=== PATIENT | female | born 1940 | race Caucasian/White ===

== ENCOUNTER 2018-04-29 18:38 | Emergency (ER) | payer MEDICARE, BC, SELFPAY ==
[2018-04-29] VITALS (23 sets, daily range): BP systolic 126–133; BP diastolic 56–76; PULSE 63–95; RESP 13–31; O2SAT 90–97
--- NOTE | 2018-04-29 19:12 | ED.GENADUL ---
Disposition Clinical Impression: Bee sting allergy Disposition: STILL A PATIENT Condition: Stable Instructions: Insect Bite or Sting (ED) Additional Instructions: Take your regular medications as directed. Use her EpiPen as directed. Follow-up with your primary care doctor within the next week as needed. Return to the emergency department with any worsening or new concerning symptoms. Prescriptions: Epinephrine [Epipen 2-Jesus] 0.3 mg IJ DIRECTED PRN #1 auto.injct PRN Reason: Medical Decision Making - Medical Decision Making 77-year-old female with a history of severe reaction to bee stings who presents status post bee sting to right foot. She has a localized reaction noted to the right foot but no difficulty breathing, swallowing, or vomiting. Vitals within normal limits. She appears relaxed and in no acute distress. Airway intact. Lungs clear to auscultation. Patient took EpiPen and Benadryl prior to arrival. She is aware of 4-6 hour period of observation after epi. She states she came here as she has had rebound before after epi. Will place an IV, bolus IV fluids, Solu-Medrol, Pepcid. 2000: Case endorsed to Dr. Steele to follow-up after 4-6 hour observation. History of Present Illness - General Chief complaint: Allergic Stated complaint: ALLERGIC REACTION Time Seen by Provider: 04/29/18 19:10 Source: patient Mode of arrival: ambulatory Limitations: no limitations - History of Present Illness Initial comments: Patient is a 77-year-old female presents here with complaint of bee sting to right foot 1 hour ago. Patient has a history of severe reaction to bee stings with shortness of breath, facial swelling, rash and has an EpiPen. Patient states she used her EpiPen and took 2 tabs of Benadryl but came here for further evaluation and observation. She denies difficulty swallowing, vomiting, chest pain or shortness of breath. - Related Data Cholecalciferol (Vitamin D3) [Vitamin D3] 2 cap PO DAILY 01/26/13 Multivitamin [Daily Vitamin] 1 tab PO DAILY 01/26/13 [place]-3 Fatty Acids/Fish Oil [Fish Oil 1,000 Mg Softgel] 1 cap PO DAILY 01/26/13 Lactobacillus Acidophilus [Probiotic] 1 each PO DAILY 07/07/13 Calcium Carb/Magnesium Oxid/D3 [Calcium Magnesium + D Tablet] 1 tab PO BID 02/06/16 Nitroglycerin 0.4 mg SL Q5 HR PRN #25 04/01/16 Nystatin Powder 60 GM [Mycostatin Powder] 0 TP BID #60 gm 04/08/16 Diphenhydramine HCl [Benadryl] 25 - 50 mg PO Q6H PRN 04/15/16 Triamcinolone [Kenalog 0.025% Oint] 5 gm TP BID PRN #80 ml 04/15/16 Ibuprofen 600 mg PO Q6H PRN #100 tab-cap 03/10/17 Losartan [Cozaar] 1 tab PO DAILY #90 tab-cap 03/10/17 Epinephrine [Epipen 2-Jesus] 0.3 mg IJ PRN PRN #1 auto.injct 03/24/17 Diclofenac Sodium [Voltaren] 4 g TP QID #100 gm 07/21/17 Estradiol [Vagifem] 10 mcg VG 2X Week #25 tab-cap 02/08/18 Gluc 2Kcl/Chondr/Denis Hy/Hy AC [Glucosamine & Chondroitin Cap] 2 cap PO BID 03/02/18 Loratadine [Claritin] 10 mg PO DAILY tab-cap 03/02/18 Epinephrine [Epipen 2-Jesus] 0.3 mg IJ DIRECTED PRN #1 auto.injct 04/29/18 Allergies Allergy/AdvReac Type Severity Reaction Status Date / Time Iodinated Contrast- Oral and Allergy Severe Anaphylaxis Unverified 04/29/18 18:57 IV Dye [Iodinated Contrast Media - Oral and] pneumococcal 23-valent Allergy Severe Unverified 04/29/18 18:57 polysacchari [From Pneumovax 23] venom-wasp Allergy Severe Anaphylaxis Unverified 04/29/18 18:57 erythromycin base Allergy Intermediate Rash Unverified 04/29/18 18:57 cephalexin Allergy Feel Unverified 04/29/18 18:57 funny- Scalp on head is rising up lisinopril AdvReac Cough Unverified 04/29/18 18:57 Penicillins AdvReac Unverified 04/29/18 18:57 Tetracyclines AdvReac N/V Unverified 04/29/18 18:57 Review of Systems Constitutional: denies: chills, fever Eyes: denies: eye pain ENT: denies: ear pain, dental pain Respiratory: denies: cough, shortness of breath Cardiovascular: denies: chest pain, dyspnea on exertion Gastrointestinal: denies: abdominal pain, nausea, vomiting Genitourinary: denies: urgency, dysuria, frequency Musculoskeletal: denies: back pain Skin: denies: rash, lesions Neurological: denies: headache, weakness, numbness Past Medical History - Past Medical History Medical history: arthritis, hypertension Allergic reaction to insect bites Surgical history: appendectomy - Social History Smoking status: never smoker Alcohol use: none Drug use: none General Exam - General Limitations: no limitations General appearance: alert, in no apparent distress - Eye Eye exam: Present: EOMI - ENT ENT exam: Present: normal orophraynx, mucous membranes moist - Neck Neck exam: Present: normal inspection - Respiratory Respiratory exam: Present: normal lung sounds bilaterally. Absent: respiratory distress, wheezes, rales, rhonchi, stridor - Cardiovascular Cardiovascular Exam: Present: regular rate, normal rhythm. Absent: bradycardia, tachycardia - GI/Abdominal GI/Abdominal exam: Present: soft, normal bowel sounds. Absent: distended, tenderness, guarding, rebound, rigid - Extremities Exam Extremities exam: Present: other (Approximately 3 x 5 cm area of erythema with central puncture wound on right medial foot. No evidence of fluctuance or induration) - Neurological Exam Neurological exam: Present: alert, oriented X3 - Psychiatric Psychiatric exam: Present: normal affect - Skin Skin exam: Present: warm, dry, intact Course Vital Signs - 24 hr 04/29/18 18:45 Pulse 95 H Respiratory 18 Rate Blood Pressure 126/68 Pulse Oximetry 96
[2018-04-29] MEDS: FAMOTIDINE 20 MG/50 ML BAG 100 MG IVPB (19:28)
[2018-04-29] MEDS: methylPREDNISolone SUCC 125 MG VIAL IVP (19:29)
[2018-04-29] MEDS: Normal Saline 1,000 ML 1000 ML IV (19:29)
--- NOTE | 2018-04-29 21:58 | ED.FU ---
Disposition Clinical Impression: Bee sting allergy Disposition: HOME Condition: Stable Instructions: Insect Bite or Sting (ED) Additional Instructions: Take your regular medications as directed. Use her EpiPen as directed. Follow-up with your primary care doctor within the next week as needed. Return to the emergency department with any worsening or new concerning symptoms. Prescriptions: Epinephrine [Epipen 2-Jesus] 0.3 mg IJ DIRECTED PRN #1 auto.injct PRN Reason: Care Signed Out By:: dr. artis - Vital Signs Recent Vitals - 8H: Vital Signs - 8 hr 04/29/18 04/29/18 04/29/18 18:45 19:04 19:10 Pulse 95 H Respiratory 18 13 16 Rate Blood Pressure 126/68 Pulse Oximetry 96 97 93 L 04/29/18 04/29/18 04/29/18 19:16 19:24 19:30 Pulse 73 Respiratory 17 20 Rate Blood Pressure 128/56 Pulse Oximetry 94 L 90 L 96 04/29/18 04/29/18 04/29/18 19:40 19:50 20:00 Pulse Respiratory 17 20 19 Rate Blood Pressure Pulse Oximetry 95 95 92 L 04/29/18 04/29/18 04/29/18 20:10 20:33 20:40 Pulse Respiratory 19 20 Rate Blood Pressure Pulse Oximetry 93 L 91 L 96 04/29/18 04/29/18 04/29/18 20:50 21:00 21:10 Pulse Respiratory 20 17 20 Rate Blood Pressure Pulse Oximetry 95 97 96 - Continuation of Care Continuation of Care Plan: pt has been observed and remains stable without symptoms. Will d/c home, return precautions given.
== END 2018-04-29 22:48 | disposition home or self-care (01) ==
PROVIDERS: Emergency Provider Emergency Medicine; PCP Family Medicine
DX: T63.441A Toxic effect of venom of bees, accidental (unintentional), initial encounter (principal); Z91.030 Bee allergy status; I10 Essential (primary) hypertension
CPT/HCPCS: 96361; 96374; 96375; 99284 ×2; J2930

== ENCOUNTER 2018-07-05 11:00 | Outpatient (CLI) | payer MEDICARE, BC, SELFPAY | END 2018-07-05 11:20 | PROVIDERS: PCP Family Medicine; Referring Provider Family Medicine; Visit Provider Physical Therapy Assistant | DX: Z12.11 Encounter for screening for malignant neoplasm of colon (principal) ==

== ENCOUNTER 2018-07-12 10:05 | Day surgery (SDC) | payer MEDICARE, BC, SELFPAY ==
--- NOTE | 2018-07-12 06:26 | W.COLOREPORT ---
Colonoscopy Report Date of procedure: 07/12/18 Pre-op diagnosis general: Colon Cancer screening Post-op diagnosis procedure note: other (diveticulosis, small polyp) Procedure: Colonoscopy with polypectomy by forceps Surgeon: Jenny Casillas Anesthesia proc note operative: MAC (Amber Floyd CRNA) Estimated blood loss (mL): 5 Pathology: other (transverse polyp) Complications: None Disposition: same day Prep: Miralax/Dulcolax Procedure Start Time: 12:40 Procedure End Time: 13:02 Retraction Time: 9 minutes Findings: Randle-diverticulosis. Severe in the left colon One small benign appearing polyp of the transverse colon Procedure Description: After informed consent was obtained the patient was taken to the procedure room and placed in a left decubitous position. Monitors were applied and a time out was done. The patients name, date of , procedure, allergies to medications and metal in their body was reviewed. The patient was then sedated. Once sedated and comfortable a rectal exam was done. External exam was normal. Internal exam revealed a normal sphincter tone and no palpable masses. The scope was then introduced and retroflexed. No internal hemorrhoids were identified. The scope was then advanced to the cecum with a lot of difficulty. There was severe diverticuloisis and tortuosity of her left colon. The TI and appendiceal orifice were identified. The prep was good. The scope was then slowly retracted over 9 minutes back into the rectum. One small benign appearing polyp was noted and removed in the transverse colon. The scope was removed and the patient was woken up and taken back to Same day surgery in stable condition. The patient tolerated the procedure well and there were no immediate complications.
--- NOTE | 2018-07-12 06:27 | PDOC.DSDIS_ITS ---
Discharge Plan Disposition Patient Disposition: HOME Condition: Good Discharge Details Reason For Visit: Colon Cancer screening Attending Provider: Jenny Casillas Primary Care Provider: Jennifer Savage Home Meds and New Rx's Prescriptions: Continue multivitamin [Daily Vitamin] 1 EACH tablet 1 tab PO DAILY RF: 0 cholecalciferol (vitamin D3) 1,000 UNIT capsule 2 cap PO DAILY RF: 0 omega-3 fatty acids-fish oil 1 EACH capsule 1 cap PO DAILY RF: 0 Lactobacillus acidophilus [Probiotic] 1 EACH capsule 1 ea PO DAILY RF: 0 calcium carb-mag oxide-vit D3 [Calcium Magnesium + D] 1 EACH tablet 1 tab PO BID RF: 0 nitroglycerin 0.4 MG tablet, sublingual 0.4 mg Sublingual Q5 HR PRN Qty: 25 RF: 0 diphenhydramine HCl [Benadryl] 25 MG capsule 25 - 50 mg PO Q6H PRN RF: 0 losartan 50 MG tablet 1 tab PO DAILY Qty: 90 RF: 12 ibuprofen 600 MG tablet 600 mg PO Q6H PRN Qty: 100 RF: 12 diclofenac sodium [Voltaren] 100 GM gel 4 g Topical QID Qty: 100 RF: 11 estradiol [Vagifem] 10 MCG tablet 10 mcg VG 2X Week Qty: 25 RF: 12 loratadine 10 MG tablet 10 mg PO DAILY PRNRF: 0 glucosam-chond wr-emsjmb-ym ac 1 EACH capsule 2 cap PO BID RF: 0 epinephrine [EpiPen 2-Jesus] 0.3 MG/0.3 ML auto-injector 0.3 mg IJ DIRECTED PRNQty: 1 RF: 0 Discharge Instructions Instructions: Colonoscopy (DC), Diverticulosis (DC) Additional Instructions: Findings: Diverticulosis one benign appearing polyp Follow up: depends on final pathology New Medications: none Please call if you develop: fevers >101.5 Nausea or Vomiting Abdominal pain that is not transient 1. Because there will be medication in your system for the next 24 hours, you may feel a little sleepy. Your coordination will be affected. Therefore: a. Do not drive or operate dangerous equipment for 24 hours. b. Do not drink alcohol beverages for 24 hours (not even beer). c. Plan to go home and rest for the day. 2. Generally there are no restrictions on your activity after a day or so has gone by, but you may feel a bit fatigued for a few days. 3 After you arrive home you may have a light meal and return to a normal diet as you can tolerate it without feeling sick to your stomach. 4. After surgery, you may feel pain or discomfort. This should be only transient , but if it persists please contact your doctor. 5. If there are any questions regarding the findings of your procedure, please feel free to contact your doctor. 6. If you are unable to contact your doctor with a problem, contact the hospital at [phone]. 7. Continue all your regular medications unless directed otherwise. I understand the above instructions and have no questions. Signature of Patient or Responsible Adult Escort Date/Time Name of Responsible Adult Escort Signature of Nurse Date/Time Activity:: Activity as Tolerated Diet:: High fiber diet Discharge Orders Discharge Orders: Discharge Order (Routine); Ordered 07/12/18 Ordered By: Jenny Casillas DS: Diagnosis Discharge Diagnosis (1) Diverticulosis large intestine w/o perforation or abscess w/o bleeding: Status: Acute (2) Colorectal polyp detected on colonoscopy: Status: Acute
[2018-07-12 10:21] VITALS: BP 139/82; PULSE 83; RESP 20; TEMP 36.1; O2SAT 94
[2018-07-12] MEDS: Lactated Ringers 1,000 ML 80 ML IV (11:00)
--- NOTE | 2018-07-12 12:56 | BOWEL_PTH ---
PATIENT: Pam Ozuna LOC: [facility] U#:[id number] AGE/SX: 77/F ROOM: RE07/12/[address]: Jenny Casillas MD : [id number] BED: DIS: 07/12/2018 SPEC #: [id number] RECD: 07/12/18 13:18 STATUS: ERMELINDA REQ #: [id number] EZEQUIEL: 07/12/18 12:[address]: Jenny Casillas DEPT: Surgical Specimen RECD BY: Christiana Jacobo ENTERED: 07/12/18 13:19 SP TYPE: Bowel OTHR DR: Jennifer Savage MD, DC Tissues: 1 - BIOPSY BOWEL Procedures: GROSS AND MICRO LEVEL 4 Comments: [id number]
[2018-07-12 13:45] VITALS: BP 130/77; PULSE 77; RESP 18; TEMP 36.8; O2SAT 96
== END 2018-07-12 14:02 | disposition home or self-care (01) ==
LOC: SUR 10:06
PROVIDERS: PCP Family Medicine; Visit Provider Surgery
PROC: 0DJD8ZZ Inspection of Lower Intestinal Tract, Via Natural or Artificial Opening Endoscopic (ICD-10-PCS; CPT 45378; principal; 2018-07-12 11:45)
DX: Z12.11 Encounter for screening for malignant neoplasm of colon (principal); D12.3 Benign neoplasm of transverse colon; Z87.19 Personal history of other diseases of the digestive system; I10 Essential (primary) hypertension
CPT/HCPCS: 45380; 88305

== ENCOUNTER 2018-09-04 00:23 | Outpatient (CLI) | payer MEDICARE, BC, SELFPAY ==
[2018-09-04 11:08] LABS: ALT 40 U/L (12-78); AST 26 U/L (15-37); Albumin 4.3 g/dL (3.4-5.0); Alkaline Phosphatase 67 U/L (46-116); Anion Gap 8.9 mmol/L (3-11); BUN 21 mg/dL (7-18); Bilirubin, Total 0.7 mg/dL (0.2-1.0); CO2 30.1 mmol/L (21.0-32.0); CREATININE 0.84 mg/dL (0.55-1.02); Calcium 9.9 mg/dL (8.5-10.1); Chloride 101 mmol/L (98-107); Glucose 96 mg/dL (70-100); Potassium 4.7 mmol/L (3.5-5.1); Sodium 140 mmol/L (136-145); Total Protein 7.3 g/dL (6.4-8.2)
[2018-09-04 11:10] LABS: Cholesterol 176 mg/dL (50-200); HDL Cholesterol 72 mg/dL (40-60); LDL CHOLESTEROL 92 mg/dL (<100); Triglyceride 76 mg/dL (30-150)
[2018-09-04 11:54] LABS: COMMENT (LAB VIEW ONLY) 155.36 mg/dL; Microalb ug/mg Crea 9.4 ug/mg Cr
[2018-09-06 06:40] LABS: Hemoglobin A1C 5.7 % (4.5-6.2)
[2018-09-06 10:01] LABS: Hepatitis C Ab w Rflx HCV PCR Negative (NEGAT)
== END 2018-09-04 00:43 ==
PROVIDERS: PCP Family Medicine; Visit Provider Family Medicine
DX: E11.9 Type 2 diabetes mellitus without complications (principal); I10 Essential (primary) hypertension; Z11.59 Encounter for screening for other viral diseases
CPT/HCPCS: 36415; 80053; 80061; 83721; 86803; 82043; 82570; 83036

== ENCOUNTER 2019-02-14 19:04 | Emergency (ER) | payer MEDICARE, BC, SELFPAY ==
[2019-02-14 19:18] VITALS: BP 175/82; PULSE 75; RESP 20; TEMP 36.6; O2SAT 95
--- NOTE | 2019-02-14 19:59 | ED.GENADUL_ITS ---
Discharge Plan Disposition Patient Disposition: HOME Discharge Details Chief Complaint: RashLesion Clinical Impression: Herpes zoster Primary Care Provider: Jennifer Savage ED Provider: Rex Amaro Home Meds and New Rx's Prescriptions: New valacyclovir 1 gram tablet 1,000 mg PO TID Qty: 29 RF: 0 bacitracin-polymyxin B 500-10,000 unit/gram ointment 0.5 inch OP Q3H 10 Days RF: 0 Continued diclofenac sodium [Voltaren] 1 % gel 4 g Topical QID PRNRF: 0 multivitamin [Daily Vitamin] 1 EACH tablet 1 tab PO DAILY RF: 0 cholecalciferol (vitamin D3) 1,000 UNIT capsule 2 cap PO DAILY RF: 0 omega-3 fatty acids-fish oil 1 EACH capsule 1 cap PO DAILY RF: 0 Probiotic 1 EACH capsule 1 ea PO DAILY RF: 0 Calcium Magnesium + D 1 EACH tablet 1 tab PO DAILY RF: 0 nitroglycerin 0.4 MG tablet, sublingual 0.4 mg Sublingual Q5 HR PRN Qty: 25 RF: 0 diphenhydramine HCl [Benadryl] 25 MG capsule 25 - 50 mg PO Q6H PRN RF: 0 losartan 50 MG tablet 1 tab PO DAILY Qty: 90 RF: 12 ibuprofen 600 MG tablet 600 mg PO Q6H PRN Qty: 100 RF: 12 estradiol [Vagifem] 10 MCG tablet 10 mcg VG 2X Week Qty: 25 RF: 12 loratadine 10 MG tablet 10 mg PO DAILY PRNRF: 0 glucosam-chond qg-hcfkwe-ut ac 1 EACH capsule 2 cap PO BID RF: 0 epinephrine [EpiPen 2-Jesus] 0.3 MG/0.3 ML auto-injector 0.3 mg IJ DIRECTED PRNQty: 1 RF: 0 Cbd Oil 18 drp PO BID RF: 0 Discharge Instructions Instructions: Shingles (ED) Additional Instructions: Please follow-up with ophthalmology. [facility] should call tomorrow to arrange follow-up. If you do not hear from [facility] tomorrow, please call. Take antiviral medication as prescribed. Please contact your primary care physician to arrange follow-up. Return to the ER for any worsening or new concerning symptoms. Referrals: Jennifer Savage MD, [place] [Primary Care Provider] - Medical Decision Making --78-year-old female here with 3 days of itchy rash left face. 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 No headache or neck stiffness. No visual changes. Plan to treat with valtrex. 20:10 -- Called [facility] to request consult from ophthalmology. Awaiting callback. 21:20 -- Spoke with Dr. Wong (ophthalmology at [facility]) who recommends treating with antiviral and also adding erythromycin eye ointment. He will have clinic call the patient tomorrow to arrange timely outpatient follow-up. He does not recommend topical steroids at this time. -- Patient has allergy to erythromycin. Will give bacitracin/polymixin. HPI General Mode of arrival: ambulatory . Date/Time Provider Initiated Documentation: 02/14/19 19:28 . Limitations to Documentation: no limitations . Information obtained by: patient . HPI Narrative: 78-year-old female presents with chief complaint of rash. Patient notes rash of her left face, localized to inside bridge of nose as well as itchiness of her forehead scalp and some itchiness of her left ear. She does have associated sensation of subtle scratchiness to her medial eye. No visual changes. No eye pain. Rash is not painful. It does have some vesicles along her inner nose. No headache, neck pain or stiffness. No fever. Patient is concerned for shingles versus contact dermatitis -she was recently hiking in [facility] area and there was poison awais present. Related Data Home Medications Medication Instructions Recorded Confirmed cholecalciferol (vitamin D3) 2 cap PO DAILY 01/26/13 02/14/19 multivitamin [Daily Vitamin] 1 tab PO DAILY 01/26/13 02/14/19 omega-3 fatty acids-fish oil 1 cap PO DAILY 01/26/13 02/14/19 Probiotic 1 ea PO DAILY 07/07/13 02/14/19 Calcium Magnesium + D 1 tab PO DAILY 02/06/16 02/14/19 nitroglycerin 0.4 mg SUBLINGUAL Q5 HR PRN #25 04/01/16 02/14/19 diphenhydramine HCl [Benadryl] 25 - 50 mg PO Q6H PRN 04/15/16 02/14/19 ibuprofen 600 mg PO Q6H PRN #100 tab-cap 03/10/17 02/14/19 losartan 1 tab PO DAILY #90 tab-cap 03/10/17 02/14/19 estradiol [Vagifem] 10 mcg VG 2X Week #25 tab-cap 02/08/18 02/14/19 glucosam-chond ss-uemrlh-wk ac 2 cap PO BID 03/02/18 02/14/19 loratadine 10 mg PO DAILY PRN tab-cap 03/02/18 02/14/19 epinephrine [EpiPen 2-Jesus] 0.3 mg IJ DIRECTED PRN #1 05/05/18 02/14/19 auto.injct diclofenac 1 % topical gel 4 g TOPICAL QID PRN gm 09/06/18 02/14/19 Cbd Oil 18 drp PO BID 02/14/19 02/14/19 bacitracin-polymyxin B 0.5 inch OP Q3H 10 Days gm 02/14/19 valacyclovir 1,000 mg PO TID #29 tab 02/14/19 Previous Rx's Medication Instructions Recorded estradiol [Vagifem] 10 mcg VG 2X Week #25 tab-cap 02/08/18 bacitracin-polymyxin B 0.5 inch OP Q3H 10 Days gm 02/14/19 valacyclovir 1,000 mg PO TID #29 tab 02/14/19 Allergies Allergy/AdvReac Type Severity Reaction Status Date / Time Iodinated Contrast- Oral and Allergy Severe Anaphylaxis Verified 02/14/19 19:24 IV Dye [Iodinated Contrast Media - Oral and] pneumococcal 23-valent Allergy Severe Verified 02/14/19 19:24 polysacchari [From Pneumovax 23] venom-wasp Allergy Severe Anaphylaxis Verified 02/14/19 19:24 erythromycin base Allergy Intermediate Rash Verified 02/14/19 19:24 cephalexin Allergy Feel Verified 02/14/19 19:24 funny- Scalp on head is rising up lisinopril AdvReac Cough Verified 02/14/19 19:24 Penicillins AdvReac Verified 02/14/19 19:24 Tetracyclines AdvReac N/V Verified 02/14/19 19:24 General Stated Complaint: RashLesion SYED: 4 Review of Systems Constitutional Denies fever(s) Integumentary/Breasts Reports as per HPI [facility] Medical History Colorectal polyp detected on colonoscopy (Chronic) Diverticulosis large intestine w/o perforation or abscess w/o bleeding (Chronic) Vaginal atrophy (Chronic 08/01/14) Tongue lesion (Chronic 09/03/17) Sensorineural hearing loss, bilateral (Chronic 06/05/15) Lumbar facet arthropathy (Chronic 10/02/14) Hip pain, left (Chronic 09/27/14) Essential hypertension (Chronic 07/07/13) Coronary artery spasm (Chronic 04/01/16) Actinic keratosis (Chronic) Abnormal glucose (Chronic 08/28/15) Abnormal auditory perception (Chronic 06/05/15) Anxiety (Resolved) Cerumen impaction (Resolved) Diabetes mellitus (Resolved) Elbow joint pain (Resolved) Elev transaminase/LDH (Resolved) H/O retained foreign body fully removed (Resolved) Lipoma (Resolved) Low back pain (Resolved) NSTEMI (non-ST elevated myocardial infarction) (Resolved) Pain of right great toe (Resolved) Shoulder pain, left (Resolved) Tailors bunion (Resolved) Tendonitis involving right hip abductors (Resolved) Surgical History History of excision of lesion (Resolved) S/P appendectomy (Resolved) S/P tonsillectomy and adenoidectomy (Resolved) Appendectomy (~195) Dilation and curettage NEVUS REMOVAL THUMB SURGERY (02/16/12) Tonsillectomy and adenoidectomy (~1950) Family History Mother Essential hypertension Asthma Lung fibrosis Father Essential hypertension Heart disease Myocardial infarction Sister Diabetes Depression Hyperlipidemia Asthma Brother Alcohol abuse Heart disease Stomach cancer Brother Myocardial infarction Cancer Maternal Grandfather Essential hypertension Heart disease Stroke Paternal Grandfather Diabetes Heart disease Neoplasm Maternal Grandmother Heart disease Paternal Grandmother Cancer Son No problems noted. Daughter No problems noted. Daughter No problems noted. Social History Smoking/Tobacco Use Status: Former Tobacco Use Quit Date: 09/28/67 Second Hand Exposure: Yes Alcohol Intake: current Alcohol Intake frequency: a few times a month Alcohol type: wine and hard liquor Drug use: Never Substance use type: marijuana Duration: decline to answer Frequency: 3-4 times per week Erika/Zoroastrianism: Gnosticist Special erika needs: No Do you feel safe in your relationship?: Yes Exam Const General: cooperative and no acute distress HENLA Head: normocephalic and atraumatic Ears: no periauricular adenopathy and TM abnormal erythematous and other (limited visualization) Mouth: moist mucous membranes Eyes Alignment and Position: alignment normal Conjunctivae: normal conjunctivae Sclera: normal sclerae Cornea: fluorescein used Pupils: PERRL EOM: EOM intact bilaterally Neck Neck: full ROM Resp Auscultation: clear to auscultation bilaterally, no rales, no rhonchi and no wheezes Cardio Rate: regular rate and not tachycardic Rhythm: regular rhythm Skin Rashes: rashes noted (Vesicular rash left inner bridge of nose, single vesicle left forehead) Neuro General: alert, awake, oriented x3 and tone normal Course Vital Signs Temperature 36.6 C 02/14/19 19:18 Pulse 75 02/14/19 19:18 Respiratory Rate 20 02/14/19 19:18 Blood Pressure 175/82 H 02/14/19 19:18 Pulse Oximetry 95 02/14/19 19:18 Temperature 36.6 C 02/14/19 19:18 Temperature Source Temporal Artery Scan 02/14/19 19:18 Pulse 75 02/14/19 19:18 Respiratory Rate 20 02/14/19 19:18 Respiratory Effort Non-Labored 02/14/19 19:18 Blood Pressure 175/82 H 02/14/19 19:18 Blood Pressure Position Sitting 02/14/19 19:18 Pulse Oximetry 95 02/14/19 19:18 Oxygen Delivery Method Room Air 02/14/19 19:18 Oxygen Flow Rate 0 02/14/19 19:18 Pain Level 0 02/14/19 19:18
[2019-02-14] MEDS: valACYclovir 500 MG TAB (20:41)
[2019-02-14] MEDS: Polymyxin B/Trimethoprim Ophth Soln 10 ML BTL (21:44)
== END 2019-02-14 22:00 | disposition home or self-care (01) ==
PROVIDERS: Emergency Provider Student in an Organized Health Care Education/Training Program; PCP Family Medicine
DX: B02.9 Zoster without complications (principal); I10 Essential (primary) hypertension; E11.9 Type 2 diabetes mellitus without complications
CPT/HCPCS: 99283

== ENCOUNTER 2019-04-26 10:56 | Outpatient (CLI) | payer MEDICARE, BC, SELFPAY ==
[2019-04-27 11:03] LABS: Measles IgG Antibody Positive; Mumps Antibody IgG Positive (Negative)
[2019-04-27 11:39] LABS: Rubella IgG Ab (UVM) Positive
== END 2019-04-26 11:16 ==
PROVIDERS: PCP Family Medicine; Visit Provider Nurse Practitioner Adult Health
DX: Z01.84 Encounter for antibody response examination (principal)
CPT/HCPCS: 36415; 86735; 86762; 86765

== ENCOUNTER 2019-09-10 01:44 | Outpatient (CLI) | payer MEDICARE, BC, SELFPAY ==
[2019-09-10 11:32] LABS: ALT 34 U/L (14-59); AST 23 U/L (15-37); Albumin 4.2 g/dL (3.4-5.0); Alkaline Phosphatase 67 U/L (46-116); BUN 19 mg/dL (7-18); Bilirubin, Total 0.7 mg/dL (0.2-1.0); CREATININE 0.73 mg/dL (0.55-1.02); Calcium 9.5 mg/dL (8.5-10.1); Chloride 103 mmol/L (98-107); Glucose 100 mg/dL (74-106); Potassium 4.2 mmol/L (3.5-5.1); Sodium 140 mmol/L (136-145); Total Protein 7.1 g/dL (6.4-8.2)
== END 2019-09-10 02:04 ==
PROVIDERS: PCP Family Medicine; Visit Provider Family Medicine
DX: I10 Essential (primary) hypertension (principal); E11.9 Type 2 diabetes mellitus without complications
CPT/HCPCS: 36415; 80053; 83036

== ENCOUNTER 2020-03-07 08:27 | Outpatient (CLI) | payer MEDICARE, BC, SELFPAY ==
[2020-03-09 07:35] LABS: COVID-19 RT-PCR Result NEGATIVE (Negative)
== END 2020-03-07 08:47 ==
PROVIDERS: PCP Family Medicine; Visit Provider Family Medicine
DX: Z11.59 Encounter for screening for other viral diseases (principal)
CPT/HCPCS: U0003

== ENCOUNTER 2020-04-13 10:00 | Outpatient (CLI) | payer MEDICARE, BC, SELFPAY ==
[2020-04-19 22:26] LABS: SARS-CoV-2 RNA Undetected (Undetected); SARS-CoV-2 Specimen Source Nasopharynx
== END 2020-04-13 10:20 ==
PROVIDERS: PCP Family Medicine; Visit Provider Family Medicine
DX: R05 Cough (principal)
CPT/HCPCS: U0003

== ENCOUNTER 2020-04-18 01:29 | Outpatient (CLI) | payer MEDICARE, BC, SELFPAY ==
--- NOTE | 2020-04-18 08:00 | DI.US_ITS ---
APPROVED REPORT EXAM: Comprehensive 2D, Doppler, and color-flow Echocardiogram Patient Location: Out-Patient Apprentice Cook: Anne Topete RDCS (AE) Indications: SOB, Coronary artery spasm Other Information Study Quality: Good Conclusion Left Ventricle : The left ventricle is normal size. The left ventricular systolic function is normal. The left ventricular ejection fraction is within the normal range. There is normal left ventricular wall thickness. There is normal LV segmental wall motion. The left ventricular diastolic function is normal. LVEF is 55-60%. Right Ventricle : The right ventricle is normal size. The right ventricular systolic function is norm al. The RVSP is 28 mmHg. Atria : The left atrium size is normal. The right atrium size is normal. Valves: There are no hemodynamically significant valvular lesions. Great Vessels : The aortic root is normal in size. IVC is normal in size and collapses >50% with insp iration. There is no prior study available for comparison. Please see remainder of study for further details Wall motion Left Ventricle The left ventricle is normal size. The left ventricular systolic function is normal. The left ventric ular ejection fraction is within the normal range. There is normal left ventricular wall thickness. T here is normal LV segmental wall motion. The left ventricular diastolic function is normal. There is no ventricular septal defect visualized. LVEF is 55-60%. Right Ventricle The right ventricle is normal size. The right ventricular systolic function is normal. The RVSP is 28 mmHg. Atria The left atrium size is normal. The right atrium size is normal. The interatrial septum is intact wit h no evidence for an atrial septal defect. Aortic Valve The Aortic valve is sclerotic. Aortic valve is trileaflet. There is no aortic valvular stenosis. Trac e aortic regurgitation. Mitral Valve Mild mitral annular calcification. No evidence of mitral valve stenosis. Trace mitral regurgitation. Tricuspid Valve The tricuspid valve is normal in structure. There is no tricuspid valve stenosis. Trace tricuspid reg urgitation. Pulmonic Valve The pulmonary valve is normal in structure. There is no pulmonic valvular stenosis. There is no pulmo refugio valvular regurgitation. Great Vessels The aortic root is normal in size. The ascending aorta is mildly dilated. Aortic arch is not well vis ualized. IVC is normal in size and collapses >50% with inspiration. Pericardium There is no pericardial effusion. 2D Dimensions IVSD d PLAX 0.80 cm F: 0.6-1.0 LV Vol A2C d MOD 65.5 mL LVPW d PLAX 0.81 cm F: 0.6 - 1.0 LV Vol A4C d MOD 62.3 mL LVID d PLAX 4.45 cm F: 3.8 - 5.2 LA vol/ BSA A2C s A-L 20.6 mL/m2 LVDs 3.00 cm F: 2.2 - 3.5 LA vol/ BSA A4C s A-L 17.8 mL/m2 Ao Root d 2.61 cm F: 2.7 - 3.3 LA Vol/ BSA Biplane s A-L 19.2 mL/m2 RA Area A4C 12.19 cm2 LA Area A4C s MOD 13.15 cm2 RA Vol/ BSA A4C s A-L 16.7 mL/m2 LA Area A2C s MOD 14.18 cm2 Ao Asc Diam d 3.31 cm F: 2.3 - 3.1 LV EF A4C MOD 56.0 % LV EF Teichholz 59.6 % LV EF A2C MOD 57.8 % LVEF (Moya's) 55.61 % F: 54 - 74 LV EF Biplane MOD 55.6 % LV Volume 50.56 mL F: 46 - 106 SV 36.11 mL LV Volume Index 28.24 mL/m2 F: 29 - 61 SV Index 20.12 mL/m2 LV Vol Biplane MOD 64.9 mL FS 31.50 % M-Mode TAPSE 2.12 cm (M/F) >1.7 LV Diastology MV E' medial 0.117 (>0.07 m/s) E/A Ratio 0.8 LV E/e MED 6.40 (<14) MV E Vmax 0.75 (0.4-1.3 m/s) MV E' lateral 0.059 (>0.1 m/s) MV A Vmax 1.00 (0.4-1.3 m/s) LV E/e LAT 12.80 (<14) MV E/A Ratio 0.73 MV E/E' medial 6.42 MV E/E' lateral 12.85 Aortic Valve LVOT Area 2.58 cm2 AoV Area Vmax 2.12 cm2 LVOT Vmax 1.33 m/s AoV Area/ BSA (Vmax) 1.18 cm2/m2 LVOT Mean Nando. 0.81 m/s SELENA Mean Nando. 1.96 cm2 LVOT Peak Grad 7.0 mmHg SELENA Mean Nando. Index 1.09 cm2/m2 LVOT Mean Grad 3.2 mmHg AR DT 1857 msec LVOT VTI 0.249 m AR PHT 539 msec LVOT Diam s 1.80 cm AoV Vmax 1.61 m/s Velocity Ratio 0.82 AoV Mean Nando. 1.06 m/s AoV Peak Grad 10.3 mmHg LVOT SV 64.11 mL AoV Mean Grad 5.2 mmHg AoV VTI 0.293 m AoV Area VTI 2.19 cm2 AoV Area/ BSA (VTI) 1.22 cm/m2 Mitral Valve MV DT 222 (160-240 msec) MV PHT 64 msec MV Area PHT 3.41 cm2 Pulmonary Valve PV Vmax 1.05 (0.5-1.5 m/s) RVOT Peak Gr. 2.67 mmHg PV Peak Grad 4.4 mmHg RVOT Mean Gr. 1.20 mmHg PV Mean Grad 2.1 mmHg RVOT VTI 0.151 m PV VTI 0.197 m RVOT Vmax 0.82 m/s Tricuspid Valve TR Peak Grad 25.8 mmHg TR Vmax 2.54 m/s RA Pressure 3.00 mmHg RVSP (TR) 28.9 mmHg
--- NOTE | 2020-04-18 13:10 | DI.RAD_ITS ---
EXAM: XR CHEST 2V PA LATERAL CLINICAL HISTORY: wheezing, sob,r06.02 TECHNIQUE: 2D digital imaging was performed. COMPARISON: CR CHEST 2 VIEWS PA,LAT from 06/06/2016 FINDINGS: MEDIASTINUM: Normal. HEART: Normal. PULMONARY VASCULATURE: Normal. LUNGS: Clear. PLEURAL SPACE: No pleural effusion or pneumothorax. BONE:Age-appropriate degenerative changes in the spine. OTHER FINDINGS:Normal. IMPRESSION: No acute pulmonary findings. DATA REPOSITORY: RADIATION DOSE DELIVERED:
== END 2020-04-18 01:49 ==
PROVIDERS: PCP Family Medicine; Visit Provider Family Medicine
DX: I20.1 Angina pectoris with documented spasm (principal); R06.02 Shortness of breath; R06.2 Wheezing
CPT/HCPCS: 93306; 71046

== ENCOUNTER 2020-04-27 13:43 | Outpatient (CLI) | payer MEDICARE, BC, SELFPAY ==
[2020-04-27] MEDS: Inhaler, Assist Device 1 EACH MC (16:14)
[2020-04-27] MEDS: Albuterol HFA 18 GM 200 PUFF INH IH (16:15)
--- NOTE | 2020-05-02 09:30 | W.PFT ---
Date of service: 04/27/20 Time of Service: 02:12 Pulmonary Function Test Result Interpretation Spirometry: Spirometry shows mild obstructive airways disease with no significant bronchodilator response Impression Mild obstructive airways disease with no significant bronchodilator response. If the diagnosis of asthma is in question, proceeding with methacholine challenge testing may prove to be useful. One cannot comment on possible concomitant underlying restriction without total lung capacity measurement. Clinical Correlation therefore is recommended.
== END 2020-04-27 14:03 ==
PROVIDERS: PCP Family Medicine; Visit Provider Family Medicine
DX: J44.9 Chronic obstructive pulmonary disease, unspecified (principal); J45.909 Unspecified asthma, uncomplicated
CPT/HCPCS: 94060

== ENCOUNTER 2020-05-02 03:55 | Outpatient (CLI) | payer MEDICARE, BC, SELFPAY ==
[2020-05-02 13:53] LABS: Abs Immature Grans 0.02 10^3/uL (0.0-0.06); Absolute Basophil Count 0.04 10^3/uL (0.0-0.2); Absolute Eosinophil Count 0.08 10^3/uL (0.0-0.7); Absolute Lymphocyte Count 1.08 10^3/uL (1.2-3.4); Absolute Monocyte Count 0.45 10^3/uL (0.1-0.8); Absolute Neutrophil Count 4.11 10^3/uL (1.2-6.7); Basophils % 0.7; Eosinophils % 1.4; HCT 44.2 % (36.0-46.0); HGB 14.5 g/dL (11.2-15.7); Immature Grans % 0.3; Lymphocytes % 18.7; MCH 30.9 pg (27.0-33.0); MCHC 32.8 % (32.0-36.0); MCV 94.2 fL (80-95); MPV 9.8 fL (8.0-11.0); Monocytes % 7.8; Neutrophils % 71.1; Nucleated RBC 0 %; Platelet Count 204 10^3/uL (130-400); RBC 4.69 10^6/uL (3.93-5.22); RDW 12.4 % (11.7-14.6); RDW-SD 42.9 fL; WBC 5.78 10^3/uL (4.4-10.8)
[2020-05-02 13:54] LABS: Hemoglobin A1C 5.9 % (3.8-5.6)
[2020-05-02 14:40] LABS: Iron 84 ug/dL (50-170)
[2020-05-02 14:50] LABS: ALT 49 U/L (14-59); AST 30 U/L (15-37); Albumin 3.8 g/dL (3.4-5.0); Alkaline Phosphatase 68 U/L (46-116); Anion Gap 8.5 mmol/L (3-11); BUN 21 mg/dL (7-18); Bilirubin, Total 0.4 mg/dL (0.2-1.0); CO2 26.5 mmol/L (21.0-32.0); CREATININE 0.73 mg/dL (0.55-1.02); Calcium 9.6 mg/dL (8.5-10.1); Chloride 107 mmol/L (98-107); Glucose 125 mg/dL (74-106); Sodium 142 mmol/L (136-145); TSH (W/Ref FT4) 1.03 uIU/mL (0.36-3.74); Total Protein 6.6 g/dL (6.4-8.2)
== END 2020-05-02 04:15 ==
PROVIDERS: PCP Family Medicine; Visit Provider Family Medicine
DX: I10 Essential (primary) hypertension; R06.2 Wheezing
CPT/HCPCS: 80053; 83036; 83540; 84443; 85025

== ENCOUNTER 2020-07-06 07:52 | Outpatient (CLI) | payer MEDICARE, BC, SELFPAY ==
[2020-07-09 09:30] LABS: Patient Race White; SARS-CoV-2 RNA Undetected (Undetected); SARS-CoV-2 Specimen Source Nasopharynx
== END 2020-07-06 08:12 ==
PROVIDERS: PCP Family Medicine; Visit Provider Family Medicine
DX: R51.9 Headache, unspecified (principal); R19.7 Diarrhea, unspecified; R53.83 Other fatigue
CPT/HCPCS: U0003

== ENCOUNTER 2020-09-03 14:11 | Outpatient (CLI) | payer MEDICARE, BC, SELFPAY ==
--- NOTE | 2020-09-03 13:50 | DI.RAD_ITS ---
EXAM: XR CERVICAL SPINE COMP 4-5V CLINICAL HISTORY: neck pain, no radiation M25.50 PAIN IN JOINT, M54.2 CERVICALGIA. TECHNIQUE: 2D digital imaging was performed. COMPARISON: No exams were available for comparison FINDINGS: There is no evidence of fracture nor listhesis but there is straightening of the cervical spine curva ture consistent with chronic multilevel degenerative disc disease seen here. There is advanced chron ic disc space narrowing at C5-6 and C6-7 levels including osteophytes anteriorly at these 2 levels. On the oblique views there Luschka joint osteophytes evident. Also facet joint arthropathy. Mild de generative antral listhesis of C3 upon C4 due to degenerative changes in the facet joints. No cervic al ribs. No osseous lesions. IMPRESSION: Multilevel chronic degenerative disc disease other degenerative changes as above. DATA REPOSITORY: RADIATION DOSE DELIVERED:
== END 2020-09-03 14:31 ==
PROVIDERS: PCP Family Medicine; Visit Provider Family Medicine
DX: M47.812 Spondylosis without myelopathy or radiculopathy, cervical region (principal)
CPT/HCPCS: 72050

== ENCOUNTER 2020-09-03 15:59 | Outpatient (REF) | payer MEDICARE, BC, SELFPAY ==
[2020-09-03 21:19] LABS: ALT 21 U/L (14-59); AST 17 U/L (15-37); Albumin 3.1 g/dL (3.4-5.0); Alkaline Phosphatase 68 U/L (46-116); Anion Gap 10.2 mmol/L (3-11); BUN 19 mg/dL (7-18); Bilirubin, Total 0.4 mg/dL (0.2-1.0); CO2 24.8 mmol/L (21.0-32.0); CREATININE 0.82 mg/dL (0.55-1.02); Calcium 9.3 mg/dL (8.5-10.1); Chloride 101 mmol/L (98-107); Glucose 98 mg/dL (74-106); Potassium 4.4 mmol/L (3.5-5.1); Sodium 136 mmol/L (136-145); Total Protein 6.7 g/dL (6.4-8.2)
[2020-09-03 21:25] LABS: HCT 41.3 % (36.0-46.0); HGB 13.5 g/dL (11.2-15.7); MCH 30.1 pg (27.0-33.0); MCHC 32.7 % (32.0-36.0); MPV 9.6 fL (8.0-11.0); Platelet Count 360 10^3/uL (130-400); RBC 4.49 10^6/uL (3.93-5.22); RDW 12.8 % (11.7-14.6); RDW-SD 43.4 fL; WBC 9.28 10^3/uL (4.4-10.8)
[2020-09-03 21:47] LABS: Vitamin D 25 Total 106.6 ng/ml (30-100)
[2020-09-03 22:07] LABS: ESR 55 mm/hr (0-30)
[2020-09-04 17:19] LABS: Rheumatoid Factor 9.9 IU/mL (<12.0)
[2020-09-05 14:58] LABS: Albumin 49.1 % (55.8-66.1); Total Protein 6.5 g/dL (6.3-8.2)
== END 2020-09-03 16:19 ==
LOC: LBN 15:59
PROVIDERS: PCP Family Medicine; Visit Provider Family Medicine
DX: E55.9 Vitamin D deficiency, unspecified (principal); E11.9 Type 2 diabetes mellitus without complications; I10 Essential (primary) hypertension; I20.1 Angina pectoris with documented spasm; M25.50 Pain in unspecified joint; R06.02 Shortness of breath; M54.2 Cervicalgia
CPT/HCPCS: 80053; 82306; 85027; 85652; 84165; 84443; 86431

== ENCOUNTER 2020-11-16 02:38 | Outpatient (CLI) | payer MEDICARE, BC, SELFPAY ==
[2020-11-16 18:30] LABS: ESR 17 mm/hr (<or=30)
[2020-11-19 06:25] LABS: Vitamin D 25 Total 90.7 ng/ml (30-100)
== END 2020-11-16 02:39 | disposition home or self-care (01) ==
LOC: LBO 02:38
PROVIDERS: PCP Family Medicine; Visit Provider Family Medicine
DX: E67.3 Hypervitaminosis D (principal); M35.3 Polymyalgia rheumatica
CPT/HCPCS: 36415; 82306; 85652

== ENCOUNTER 2021-05-20 13:15 | Outpatient (CLI) | payer MEDICARE, BC, SELFPAY ==
[2021-05-20 11:25] LABS: Hemoglobin A1C 6.1 % (<5.7)
[2021-05-20 12:06] LABS: ALT 35 U/L (14-59); AST 27 U/L (15-37); Albumin 3.8 g/dL (3.4-5.0); Alkaline Phosphatase 72 U/L (46-116); Anion Gap 8.8 mmol/L (3-11); BUN 13 mg/dL (7-18); Bilirubin, Total 0.5 mg/dL (0.2-1.0); CO2 29.2 mmol/L (21.0-32.0); CREATININE 0.7 mg/dL (0.55-1.02); Calcium 9.6 mg/dL (8.5-10.1); Chloride 105 mmol/L (98-107); Glucose 89 mg/dL (74-106); Potassium 4.3 mmol/L (3.5-5.1); Sodium 143 mmol/L (136-145)
[2021-05-20 12:30] LABS: Vitamin D 25 Total 70.5 ng/mL (30-100)
== END 2021-05-20 13:16 | disposition home or self-care (01) ==
LOC: LBO 13:15
PROVIDERS: PCP Family Medicine; Visit Provider Family Medicine
DX: I10 Essential (primary) hypertension (principal); E11.9 Type 2 diabetes mellitus without complications; E67.3 Hypervitaminosis D
CPT/HCPCS: 36415; 80053; 82306; 83036

== ENCOUNTER 2021-07-23 14:14 | Outpatient (CLI) | payer MEDICARE, BC, SELFPAY ==
--- NOTE | 2021-07-23 13:30 | DI.RAD_ITS ---
Exam(s) XR SHOULDER RT COMPLETE 2+V EXAM: XR SHOULDER RT COMPLETE 2+V CLINICAL HISTORY: right shoulder pain. TECHNIQUE: 2D digital imaging was performed. COMPARISON: CR LEFT SHOULDER COMPLETE from 04/21/2018 FINDINGS: BONES: No acute fracture is present. No bony destructive lesion is seen. JOINTS: No dislocation present. There is severe narrowing of the glenohumeral joint space. There is spurring from the inferior humeral head and some adjacent remodeling of the glenoid. Periarticular sclerosis is present. There are multiple loose bodies seen in the subcoracoid bursa. No significant AC joint spurring. SOFT TISSUE: Normal. IMPRESSION: Severe degenerative changes of the glenohumeral joint. Loose bodies in the subcoracoid bursa. DATA REPOSITORY: RADIATION DOSE DELIVERED:
--- NOTE | 2021-07-23 13:30 | DI.RAD_ITS ---
Exam(s) XR SHOULDER LT COMPLETE 2+V EXAM: XR SHOULDER LT COMPLETE 2+V CLINICAL HISTORY: left shoulder pain. TECHNIQUE: 2D digital imaging was performed. COMPARISON: CR XR SHOULDER RT COMPLETE 2+V from 07/23/2021 FINDINGS: BONES: No acute fracture is present. No bony destructive lesion is seen. JOINTS: No dislocation present. Severe narrowing of the glenohumeral joint space with a [id number] appearance. Some remodeling of the glenoid. Spurring from the inferior humeral head and periarticu lar sclerosis. Subchondral cysts near the greater tuberosity. No significant AC joint spurring. SOFT TISSUE: Normal. IMPRESSION: Severe degenerative changes of the glenohumeral joint. DATA REPOSITORY: RADIATION DOSE DELIVERED:
== END 2021-07-23 14:15 | disposition home or self-care (01) ==
LOC: DIORS 14:14
PROVIDERS: PCP Family Medicine; Referring Provider Family Medicine; Visit Provider Student in an Organized Health Care Education/Training Program
DX: M25.511 Pain in right shoulder (principal); M25.512 Pain in left shoulder; M19.012 Primary osteoarthritis, left shoulder; M19.011 Primary osteoarthritis, right shoulder; E11.9 Type 2 diabetes mellitus without complications
CPT/HCPCS: 99203; 99214; 73030

== ENCOUNTER 2022-02-07 02:02 | Outpatient (CLI) | payer MEDICARE, SELFPAY ==
[2022-02-07 09:02] LABS: ESR 3 mm/hr (0-30)
[2022-02-07 10:01] LABS: ALT 35 U/L (14-59); AST 20 U/L (15-37); Albumin 3.8 g/dL (3.4-5.0); Alkaline Phosphatase 70 U/L (46-116); Anion Gap 6.7 mmol/L (3-11); BUN 27 mg/dL (7-18); Bilirubin, Total 0.4 mg/dL (0.2-1.0); CO2 31.3 mmol/L (21.0-32.0); CREATININE 0.8 mg/dL (0.55-1.02); Chloride 103 mmol/L (98-107); Glucose 69 mg/dL (74-106); Sodium 141 mmol/L (136-145); Total Protein 7.2 g/dL (6.4-8.2)
[2022-02-07 17:44] LABS: CRP, High Sensitivity 4.55 mg/L (See Note)
== END 2022-02-07 02:03 | disposition home or self-care (01) ==
LOC: LBO 02:40
PROVIDERS: PCP Family Medicine; Visit Provider Family Medicine
DX: M35.3 Polymyalgia rheumatica (principal); E11.9 Type 2 diabetes mellitus without complications
CPT/HCPCS: 36415; 80053; 85652; 86141; 83036

== ENCOUNTER → 2022-03-06 01:39 | Outpatient (CLI) | payer MEDICARE, SELFPAY ==
--- NOTE | 2022-03-06 08:00 | DI.MRI_ITS ---
Exam(s) MR UPPER JOINT RT WO EXAM: MR UPPER JOINT RT WO CLINICAL HISTORY: worsening r shoulder pain,primary oa rt shoulder, loose body,m19.011, TECHNIQUE: Multiplanar multisequence MRI of the shoulder was performed. COMPARISON: CR XR SHOULDER RT COMPLETE 2+V from 07/23/2021 CR XR SHOULDER LT COMPLETE 2+V from 07/23/2021 FINDINGS: MARROW:There is no evidence of fracture, Hill-Sachs deformity, nor ominous osseous lesions. There is severe osteoarthritic degenerative changes in the glenohumeral joint with advanced joint space narrow ing and opposing osteophytes on the inferior articular surfaces of the humeral head and osseous gleno id and bone edema on both sides the joint. Degenerative subarticular cysts are seen at the level the greater tuberosity. There is a glenohumeral joint effusion and this extends into the medial subcora coid recess where there are multiple calcified bodies as seen on recent x-rays. The largest of these measures approximately 2.3 by 1.2 cm. Fluid seen extending down the biceps tendon sheath but no loo se bodies evident in this biceps tendon sheath. ROTATOR CUFF MECHANISM: AC JOINT/ACROMIUM: Mild-moderate degenerative changes in the AC joint. Undersurface of the acromion is concave. No prominent undersurface impingement hook evident. No abnormal thickening of the corac oacromial ligament.. There is no evidence of os acromiale. Supraspinatus: There is thinning of the supraspinatus-rotator cuff tendon. There is partial thicknes s articular side tearing but no obvious full-thickness tear nor retraction musculotendinous junction. There is, however, some atrophy of the muscle belly. Infraspinatus: There is partial-thickness tearing with fluid along the musculotendinous junction. Ho wever, there does not appear to be full-thickness tear nor retraction. There are degenerative subart icular cysts in the osseous glenoid subjacent to the infraspinatus tendon insertion site. Teres Minor: Intact. No evidence of tear nor muscle atrophy. Subscapularis/anterior cuff: Intact. No obvious tear. BICEPS TENDON: Exhibits normal position within the intertubercular groove. There is fluid in the ten don sheath. There is some split tearing of the tendon within the intertubercular groove but no high- grade tear.. LABRUM: No obvious signal abnormality in the labrum posterior to the biceps insertion. No obvious SL AP tear. Posterior labrum appears intact. Anterior labrum exhibits some tearing. Inferiorly brim i s slightly irregular. Inferior glenohumeral ligament is intact. No obvious bony Bankart lesion GLENOHUMERAL JOINT: Advanced degenerative changes. Osteophytes. Loose intra-articular bodies in the medial recess ranging up to 2.3 cm size. Joint effusion. No evidence of obvious capsular tear. Th e inferior glenohumeral ligament is intact. QUADRILATERAL SPACE: No evidence of mass in the region of the axillary nerve and dorsal circumflex hu meral vessels. Visualized triceps muscle at this level appears unremarkable. IMPRESSION: 1. There is advanced osteoarthritic degenerative change glenohumeral joint, as detailed above. There is also a moderate-sized joint effusion and there are multiple calcified bodies in the medial subcor acoid bursa extension, these corresponding to what was seen on the plain films. There is fluid exten ding down the long head biceps tendon sheath but no loose intra-articular bodies evident within this distended sheath. The biceps tendon exhibits some split tearing in the intertubercular groove but no high-grade tear. There is some fraying of the anterior labrum. No evidence of paralabral cyst. 2. Partial thickness tearing of the supra and infraspinatus tendons. No full-thickness tear no retra ction of the musculotendinous junctions. There is some atrophy of the supraspinatus muscle belly. 3. There is reactive bone edema in the medial half of the humeral head and there are multiple conflue nt degenerative subarticular cysts at the level of the greater tuberosity. DATA REPOSITORY:
== END ==
PROVIDERS: PCP Family Medicine; Visit Provider Family Medicine
DX: S46.211A Strain of muscle, fascia and tendon of other parts of biceps, right arm, initial encounter (principal); M75.111 Incomplete rotator cuff tear or rupture of right shoulder, not specified as traumatic; M19.011 Primary osteoarthritis, right shoulder; M25.411 Effusion, right shoulder; M62.511 Muscle wasting and atrophy, not elsewhere classified, right shoulder; M24.011 Loose body in right shoulder; M25.811 Other specified joint disorders, right shoulder; R60.0 Localized edema; X58.XXXA Exposure to other specified factors, initial encounter
CPT/HCPCS: 73221

== ENCOUNTER → 2022-03-19 13:18 | Outpatient (BNVA) | payer MEDICARE, SELFPAY | PROVIDERS: PCP Family Medicine; Referring Provider Family Medicine; Visit Provider Student in an Organized Health Care Education/Training Program | DX: M19.011 Primary osteoarthritis, right shoulder (principal); M19.012 Primary osteoarthritis, left shoulder | CPT/HCPCS: 99214 ==

== ENCOUNTER → 2022-05-01 02:10 | Outpatient (CLI) | payer MEDICARE, SELFPAY ==
--- NOTE | 2022-05-01 07:45 | DI.RAD_ITS ---
Exam(s) RF JOINT INJECTION FLUORO GUID EXAM: RF JOINT INJECTION FLUORO GUID CLINICAL HISTORY: RT SHOULDER PAIN, M19.011,OA RT SHOULDER, FLUORO GUIDED INJECTION. TECHNIQUE: 2D and realtime digital imaging was performed. COMPARISON: CR XR SHOULDER RT COMPLETE 2+V from 07/23/2021 FINDINGS: Fluoroscopy was provided for Dr. Talavera for guidance with performing a right shoulder injection. Please see procedure note for details. Fluoro time: 1.0seconds RADIATION DOSE DELIVERED: crystal Graves= 1.41 mGy
--- NOTE | 2022-05-01 08:00 | DI.RAD_ITS ---
Exam(s) RF JOINT INJECTION FLUORO GUID EXAM: RF JOINT INJECTION FLUORO GUID CLINICAL HISTORY: LT SHOULDER PAIIN, M19.012, ARTHRITIS, FLUORO GUIDED INJECTION. TECHNIQUE: 2D and realtime digital imaging was performed. COMPARISON: CR XR SHOULDER LT COMPLETE 2+V from 07/23/2021 FINDINGS: Fluoroscopy was provided for Dr. Talavera for guidance with performing a left shoulder injection. Please see procedure note for details. Fluoro time: 1.0seconds RADIATION DOSE DELIVERED: crystal Graves=0.12 mGy
[2022-05-01] MEDS: Bupivacaine 0.5% Pres-Free 10 ML VIAL 5 ML IJ ×2 (13:59→14:05)
[2022-05-01] MEDS: Omnipaque 300 MG/ML 10 ML BTL IJ ×2 (14:01→14:05)
[2022-05-01] MEDS: methylPREDNISolone ACETATE 80 MG/ML VIAL IM ×2 (14:02→14:06)
--- NOTE | 2022-05-04 09:49 | W.PROCNOTE ---
Date of service: 05/01/22 Time of Service: 13:45 Procedure Note Date of procedure: 05/01/22 Procedure: Right Shoulder Injection Surgeon/Proceduralist/Physician: Nick Dias Procedure Indications: Pam has had persistent pain of the RIGHT shoulder. Noninvasive measures have been tried. To serve as both diagnostic and therapeutic, an injection under fluoroscopy was recommended. I had discussed the risks of the procedure and the patient elected to proceed. Procedure Description: Pam was greeted in the flouroscopy room. The correct side was identified and the consent was reviewed with the patient and signed. The patient was then placed in the supine position on the fluoroscopy table. The RIGHT shoulder was then prepped with Chloraprep. The anterior injection starting point was identiifed by bony landmarks and fluoroscopy. The skin and soft tissue in the tract of the injection was anesthetized with 1% Lidocaine. A spinal needle was then inserted deep into the shoulder joint at the level of the recess between the glenoid and superior humeral head. A small amount of Omnipaque solution was injected to confirm intraarticular placement. Once confirmed, the shoulder was injected with 5cc of 0.5% Bupivicaine and 80mg of Depo-Medrol. A bandaid was placed on the injection site. The patient tolerated the procedure well and attention was turned to the LEFT shoulder. The patient was then repositioned for the left shoulder. The LEFT shoulder was then prepped with Chloraprep. The anterior injection starting point was identiifed by bony landmarks and fluoroscopy. The skin and soft tissue in the tract of the injection was anesthetized with 1% Lidocaine. A spinal needle was then inserted deep into the shoulder joint at the level of the recess between the glenoid and superior humeral head. A small amount of Omnipaque solution was injected to confirm intraarticular placement. Once confirmed, the shoulder was injected with 5cc of 0.5% Bupivicaine and 80mg of Depo-Medrol. A bandaid was placed on the injection site. The patient tolerated the procedure well and noted improvement of both shoulders. There were no ill effects from the contrast.
== END ==
PROVIDERS: PCP Family Medicine; Visit Provider Student in an Organized Health Care Education/Training Program
DX: M19.011 Primary osteoarthritis, right shoulder (principal); M19.012 Primary osteoarthritis, left shoulder; M25.512 Pain in left shoulder; M25.511 Pain in right shoulder
CPT/HCPCS: 20610; 77002; J1040

== ENCOUNTER 2022-05-26 04:35 | Outpatient (CLI) | payer MEDICARE, SELFPAY ==
[2022-05-26 12:14] LABS: ESR 5 mm/hr (0-30)
[2022-05-26 12:29] LABS: ALT 40 U/L (14-59); AST 26 U/L (15-37); Albumin 3.5 g/dL (3.4-5.0); Alkaline Phosphatase 53 U/L (46-116); Anion Gap 10.9 mmol/L (3-11); BUN 24 mg/dL (7-18); Bilirubin, Total 0.4 mg/dL (0.2-1.0); CO2 27.1 mmol/L (21.0-32.0); CREATININE 0.7 mg/dL (0.55-1.02); Calcium 9.2 mg/dL (8.5-10.1); Chloride 106 mmol/L (98-107); Glucose 64 mg/dL (74-106); Potassium 4.1 mmol/L (3.5-5.1); Sodium 144 mmol/L (136-145)
== END 2022-05-26 04:36 | disposition home or self-care (01) ==
LOC: LOS 04:35
PROVIDERS: PCP Family Medicine; Visit Provider Family Medicine
DX: M35.3 Polymyalgia rheumatica
CPT/HCPCS: 36415; 80053; 85652

== ENCOUNTER → 2022-07-15 11:12 | Outpatient (BNVA) | payer MEDICARE, SELFPAY | PROVIDERS: PCP Family Medicine; Referring Provider Family Medicine; Visit Provider Student in an Organized Health Care Education/Training Program | DX: M19.011 Primary osteoarthritis, right shoulder (principal); M19.012 Primary osteoarthritis, left shoulder | CPT/HCPCS: 99213 ==

== ENCOUNTER 2022-09-11 02:02 | Outpatient (CLI) | payer MEDICARE, SELFPAY ==
--- NOTE | 2022-09-11 07:45 | DI.RAD_ITS ---
Exam(s) RF JOINT INJECTION FLUORO GUID EXAM: RF JOINT INJECTION FLUORO GUID CLINICAL HISTORY: R SHOULDER PAIN,fluoro guided injection,arthritis, m19.011 TECHNIQUE: 2D and realtime digital imaging was performed. CONTRAST MATERIAL: Refer to procedure report. COMPARISON: No exams were available for comparison FINDINGS: Fluoroscopy was provided for Dr. Talavera during the performance of a right shoulder injection. Please refer to the procedure report for complete details. Ka,r=3.27 mGy IMPRESSION:
--- NOTE | 2022-09-11 07:45 | DI.RAD_ITS ---
Exam(s) RF JOINT INJECTION FLUORO GUID EXAM: RF JOINT INJECTION FLUORO GUID CLINICAL HISTORY: L SHOULDER PAIN, fluoro guided injection, m19.012 TECHNIQUE: 2D and realtime digital imaging was performed. CONTRAST MATERIAL: Refer to procedure report. COMPARISON: No exams were available for comparison FINDINGS: Fluoroscopy was provided for Dr. Talavera during the performance of a left shoulder injection. Please refer to the procedure report for complete details. Ka,r=3 mGy IMPRESSION: RADIATION DOSE DELIVERED:
[2022-09-11] MEDS: Bupivacaine 0.5% Pres-Free 10 ML VIAL IJ ×2 (13:31→13:34)
[2022-09-11] MEDS: methylPREDNISolone ACETATE 80 MG/ML VIAL IM ×2 (13:32→13:34)
--- NOTE | 2022-09-11 14:10 | OPPNE_ITS ---
Date of service: 09/11/22 Time of Service: 14:11 Procedure Note Date of procedure: 09/11/22 Procedure: Bilateral Shoulder Injection Surgeon/Proceduralist/Physician: Nick Dias Procedure Diagnosis: Bilateral Glenohumeral Arthritis Procedure Indications: Pam has had persistent pain of both shoulders. Noninvasive measures have been tried. To serve as both diagnostic and therapeutic, an injection under fluoroscopy was recommended. She had previous sucess with injections of both shoulders in April. I had discussed the risks of the procedure and the patient elected to proceed. Procedure Description: Pam was greeted in the flouroscopy room. The correct side was identified and the consent was reviewed with the patient and signed. The patient was then placed in the supine position on the fluoroscopy table. The RIGHT shoulder was then prepped with Chloraprep. The anterior injection starting point was ident iifed by bony landmarks and fluoroscopy. The skin and soft tissue in the tract of the injection was anesthetized with 1% Lidocaine. A spinal needle was then inserted deep into the shoulder joint at the level of the recess between the glenoid and superior humeral head. A small amount of Omnipaque solution was injected to confirm intraarticular placement. Once confirmed, the shoulder was injected with 5cc of 0.5% Bupivicaine and 80mg of Depo-Medrol. A bandaid was placed on the injection site. The patient tolerated the procedure well and noted improvement in pre-injection pain. The LEFT shoulder was then prepped with Chloraprep. The anterior injection starting point was identiifed by bony landmarks and fluoroscopy. The skin and soft tissue in the tract of the injection was anesthetized with 1% Lidocaine. A spinal needle was then inserted deep into the shoulder joint at the level of the recess between the glenoid and superior humeral head. A small amount of Omnipaque solution was injected to confirm intraarticular placement. Once confirmed, the shoulder was injected with 5cc of 0.5% Bupivicaine and 80mg of Depo-Medrol. A bandaid was placed on the injection site. The patient tolerated the procedure well and noted improvement in pre-injection pain.
== END 2022-09-11 02:22 ==
LOC: DI 02:02
PROVIDERS: PCP Family Medicine; Visit Provider Student in an Organized Health Care Education/Training Program
DX: M19.011 Primary osteoarthritis, right shoulder (principal); M19.012 Primary osteoarthritis, left shoulder; M25.511 Pain in right shoulder; M25.512 Pain in left shoulder
CPT/HCPCS: 20610; 20611; 77002; J1040

== ENCOUNTER → 2023-02-11 09:19 | Outpatient (BNVA) | payer MEDICARE, SELFPAY | PROVIDERS: PCP Family Medicine; Referring Provider Family Medicine; Visit Provider Student in an Organized Health Care Education/Training Program | DX: M19.011 Primary osteoarthritis, right shoulder (principal); M19.012 Primary osteoarthritis, left shoulder | CPT/HCPCS: 99215 ==

== ENCOUNTER 2023-02-12 13:39 | Outpatient (CLI) | payer MEDICARE, SELFPAY ==
--- NOTE | 2023-02-12 13:30 | RT.EKG_ITS ---
APPROVED REPORT Exam: Resting ECG Reason for Exam: Pre-op testing Patient Location: O HR:87 bpm ECG Measurements Heart Rate 87 AXIS WV 182 P 65 QRSd 91 QRS -21 QT 402 T 52 QTc 484 Conclusion Sinus rhythm...normal P axis, V-rate 50- 99 Supraventricular bigeminy...bigeminy string>4 w/ SV complexes Probable left atrial enlargement...P >50mS, <-0.10mV V1
== END 2023-02-12 13:40 | disposition home or self-care (01) ==
LOC: DI.CM 13:40
PROVIDERS: PCP Family Medicine; Visit Provider Family Medicine
DX: Z01.811 Encounter for preprocedural respiratory examination (principal)
CPT/HCPCS: 93010

== ENCOUNTER 2023-02-16 01:11 | Outpatient (CLI) | payer MEDICARE, SELFPAY ==
--- NOTE | 2023-02-16 08:15 | DI.CT_ITS ---
Exam(s) CT UPPER EXTREMITY LT WO EXAM: CT UPPER EXTREMITY LT WO CLINICAL HISTORY: PREOPERATIVE PLANNING,ARTHRITIS LT SHOULDER REGION,M19.012. TECHNIQUE: Imaging Protocol: Axial computed tomography images with coronal and sagittal reformatted images were created and reviewed. COMPARISON: CR XR SHOULDER BILAT (GENERIC) from 02/06/2023 FINDINGS: CT scan of the left shoulder was performed for nondiagnostic pre-surgical planning purposes. There a re marked degenerative changes seen at the glenohumeral joint characterized by joint space narrowing and bony hypertrophy. There is loss of the glenohumeral joint. Subchondral cysts are present in bot h the glenoid and the humeral head. There are mild degenerative changes seen at the acromioclavicula r joint. The bones are intact and normally mineralized. There is a 1.4 cm loose body inferior to th e coracoid process. There also small densities within the biceps tendon sheath. IMPRESSION: Marked osteoarthritis of the glenohumeral joint. RADIATION DOSE DELIVERED: 594.03mGy.cm Total DLP 594.03mGy.cm Total DLP DATA REPOSITORY: All CT scans at this facility are submitted to the National Radiology Data Registry (NRDR) Dose Index Registry (DIR) with the [employer] ([employer]). RADIATION OPTIMIZATION: All CT scans at this facility use at least one of these dose optimization te chniques: automated exposure control; mA and/or kV adjustment per patient size (includes targeted exa ms where dose is matched to clinical indication); or iterative reconstruction.
== END 2023-02-16 01:31 ==
LOC: DI 01:11
PROVIDERS: PCP Family Medicine; Visit Provider Student in an Organized Health Care Education/Training Program
DX: M19.012 Primary osteoarthritis, left shoulder (principal)
CPT/HCPCS: 73200

== ENCOUNTER 2023-02-17 11:08 | Outpatient (CLI) | payer MEDICARE, SELFPAY ==
--- NOTE | 2023-02-17 08:45 | DI.RAD_ITS ---
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 TECHNIQUE: 2D digital imaging was performed. Six images were obtained. AP, odontoid, lateral and myrna ateral oblique images were obtained. COMPARISON: CR XR CERVICAL SPINE COMP 4-5V from 09/03/2020 FINDINGS: The odontoid is intact. The lateral masses are well aligned. There is straightening of the normal ce rvical lordosis. There is disc space narrowing at C5-6 and C6-C7. Endplate osteophytes are also see n at these levels. There are degenerative changes of the facets. No acute fracture or subluxation i s present. There is mild neural foraminal narrowing bilaterally at C5-C6. The cervical thoracic junct ion is well maintained. The prevertebral soft tissues are unremarkable. Lung apices are clear. IMPRESSION: Stable degenerative changes in the cervical spine. DATA REPOSITORY: RADIATION DOSE DELIVERED:
== END 2023-02-17 11:28 ==
PROVIDERS: PCP Family Medicine; Visit Provider Family Medicine
DX: G95.9 Disease of spinal cord, unspecified (principal)
CPT/HCPCS: 72050

== ENCOUNTER 2023-02-20 01:20 | Outpatient (CLI) | payer MEDICARE, SELFPAY ==
[2023-02-20 12:29] LABS: HCT 43.9 % (36.0-46.0); HGB 14.4 g/dL (11.2-15.7); MCH 31.1 pg (27.0-33.0); MCHC 32.8 % (32.0-36.0); MCV 95 fL (80-95); MPV 9.8 fL (8.0-11.0); Platelet Count 299 10^3/uL (130-400); RBC 4.63 10^6/uL (3.93-5.22); RDW 13.5 % (11.7-14.6); RDW-SD 47.1 fL
[2023-02-20 12:39] LABS: Hemoglobin A1C 6.1 % (<5.7)
[2023-02-20 12:50] LABS: ALT 32 U/L (14-59); AST 20 U/L (15-37); Albumin 3.8 g/dL (3.4-5.0); Alkaline Phosphatase 61 U/L (46-116); Anion Gap 6.6 mmol/L (3-11); BUN 22 mg/dL (7-18); Bilirubin, Total 0.5 mg/dL (0.2-1.0); CO2 29.4 mmol/L (21.0-32.0); CREATININE 0.9 mg/dL (0.55-1.02); Calcium 9.4 mg/dL (8.5-10.1); Chloride 103 mmol/L (98-107); Estimated GFR 64.63 (mL/min/1.73m2); Glucose 105 mg/dL (74-106); Potassium 4.4 mmol/L (3.5-5.1); Sodium 139 mmol/L (136-145); Total Protein 7.3 g/dL (6.4-8.2)
== END 2023-02-20 01:21 | disposition home or self-care (01) ==
LOC: LOS 01:20
PROVIDERS: PCP Family Medicine; Referring Provider Family Medicine; Visit Provider Family Medicine
DX: I10 Essential (primary) hypertension (principal); E11.9 Type 2 diabetes mellitus without complications; I20.1 Angina pectoris with documented spasm
CPT/HCPCS: 36415; 80053; 85027; 83036

== ENCOUNTER 2023-03-04 04:35 | Outpatient (CLI) | payer MEDICARE, SELFPAY | END 2023-03-04 04:36 | disposition home or self-care (01) | LOC: LBO 04:35 | PROVIDERS: PCP Family Medicine; Visit Provider Family Medicine | DX: M19.011 Primary osteoarthritis, right shoulder (principal); M19.012 Primary osteoarthritis, left shoulder; G95.9 Disease of spinal cord, unspecified | CPT/HCPCS: 36415; 80053; 99214; 83036 ==

== ENCOUNTER 2023-03-09 02:28 | Outpatient (CLI) | payer MEDICARE, SELFPAY ==
--- NOTE | 2023-03-09 08:15 | DI.MRI_ITS ---
Exam(s) MR CERVICAL SPINE WO EXAM: MR CERVICAL SPINE WO CLINICAL HISTORY: cervical myelopathy, balance problems, hand neuro,g95.9,disease of spinal TECHNIQUE: Multiplanar multisequence MRI of the cervical spine was performed without intravenous con trast. COMPARISON: CR XR CERVICAL SPINE COMP 4-5V from 02/17/2023 FINDINGS: CERVICOMEDULLARY JUNCTION: Intact with no evidence of cerebellar tonsillar ectopia. No obvious abnor mality of the odontoid process. No evidence of Chiari 1 malformation. CERVICAL SPINAL CORD: There is no abnormal signal in the cervical spinal cord and no evidence of foca l cord atrophy nor focal cord swelling. OSSEOUS:There are no cervical fractures evident. No significant osseous lesions in the cervical vert ebrae. There is straightening mild reversal of the normal curvature noted, as evident on recent plai n films. INDIVIDUAL LEVELS: C2-3: No disc herniation nor central canal stenosis. No foraminal stenosis. Mild bilateral facet simi nt degenerative changes. C3-4: Normal disc height.. No disc herniation. Central canal dimensions are normal. Moderate degen erative changes in the left facet joint.Mild foraminal stenosis on the left side. No significant deg enerative changes in the facet joints on the right side. No foraminal stenosis on the right side. C4-5: Normal disc height. No disc herniation or central canal stenosis. No foraminal stenosis on th e right side. No facet arthropathy on the right side. On the left side there is significant facet a rthropathy and mild left-sided foraminal stenosis. C5-6: This level exhibits chronic advanced disc space narrowing and anterior osteophytes. Posteriorl y there is posterior annular protrusion located centrally indents the thecal sac and contacts the ant erior aspect of the spinal cord. AP measurement of the canal at this level is 9.5 mm. No prominent central canal stenosis. Are small Luschka joint osteophytes seen bilaterally at this level. There i s mild bilateral degenerative change in the facet joints. Significant bilateral foraminal stenosis e vident at this level. C6-7: Chronic decreased disc height. Anterior osteophytes. Mild symmetrical annular bulging but no prominent disc herniation at this level. Central canal dimensions are lower normal. There are only mild degenerative changes in the facet joints bilaterally at this level. No prominent foraminal sten osis evident at this level. C7-T1: No disc herniation nor central canal stenosis. Facet arthropathy bilaterally. However, there is no significant foraminal stenosis at this levelno foraminal stenosis. IMPRESSION: 1. Multilevel findings as described above. 2. At C5-6 level there is chronic disc space narrowing and posterior annular protrusion indents the t hecal sac and contacts the anterior aspect the spinal cord. There is no prominent central canal sten osis at this level. There is bilateral foraminal stenosis evident at this level due to disc height l oss and some facet arthropathy. 3. Other findings as above. DATA REPOSITORY:
== END 2023-03-09 02:48 ==
PROVIDERS: PCP Family Medicine; Visit Provider Family Medicine
DX: G95.9 Disease of spinal cord, unspecified (principal); M50.322 Other cervical disc degeneration at C5-C6 level
CPT/HCPCS: 72141

== ENCOUNTER 2023-03-13 05:56 | Day surgery (SDC) | payer MEDICARE, SELFPAY ==
[2023-03-13] VITALS (13 sets, daily range): BP systolic 85–153; BP diastolic 36–89; PULSE 76–84; RESP 11–22; TEMP 36.3–36.5; O2SAT 92–99; BMI 25.8
[2023-03-13 06:39] LABS: Source Nasal/Nares
--- NOTE | 2023-03-13 06:44 | ANES.PREOP_ITS ---
General Info Date of Service Date Performed: 03/13/23 Height: 5 ft 6 in Weight: 72.575 kg Body Mass Index (BMI): 25.8 Surgical Procedure: Operation Date: 03/13/23 07:40 Proposed Procedure Side Surgeon p Shoulder Reverse Total Arthroplasty, Biceps Tenodesis, any other indicated procedures Left Juvencio Talavera MD Meds Allergies and Home Medications Allergies Allergy/AdvReac Type Severity Reaction Status Date / Time Iodinated Contrast Media Allergy Severe Anaphylaxis Verified 03/13/23 06:26 [Iodinated Contrast Media - Oral and] pneumococcal 23-valent Allergy Severe Verified 03/13/23 06:26 polysacchari [From Pneumovax ] venom-wasp Allergy Severe Anaphylaxis Verified 03/13/23 06:26 erythromycin base Allergy Intermediate Rash Verified 03/13/23 06:26 cephalexin Allergy Feel Verified 03/13/23 06:26 funny- Scalp on head is rising up lisinopril AdvReac Cough Verified 03/13/23 06:26 Penicillins AdvReac Verified 03/13/23 06:26 Tetracyclines AdvReac N/V Verified 03/13/23 06:26 Home Medication Medication Instructions Recorded cholecalciferol (vitamin D3) 25 2 cap PO DAILY 01/26/13 mcg (1,000 unit) capsule multivitamin (Daily Vitamin tablet) 1 tab PO DAILY 01/26/13 omega-3 fatty acids-fish oil 300 1 cap PO DAILY 01/26/13 mg-1,000 mg capsule Lactobacillus acidophilus 10 1 ea PO DAILY 07/07/13 billion cell capsule (Probiotic) nitroglycerin 0.4 mg sublingual 0.4 mg sublingual Q5 HR PRN #25 08/30/21 tablet tabs loratadine 10 mg tablet 5 mg PO DAILY PRN allergy symptoms 03/19/22 Quercetin w/ Bromalain 1 cap PO DAILY 05/26/22 turmeric 400 mg capsule 400 mg PO DAILY 05/26/22 epinephrine 0.3 mg/0.3 mL 0.3 mg (0.3 mL) IJ DIRECTED PRN 11/15/22 injection, auto-injector (EpiPen anaphylaxis ##1 2-Jesus) losartan 100 mg tablet 100 mg PO DAILY #90 tab-caps 02/12/23 aspirin 81 mg tablet,delayed 81 mg PO DAILY prevent blood clot 03/13/23 release 7 days #7 tabs naproxen 250 mg tablet 250 - 500 mg PO BID PRN #40 tabs 03/13/23 tramadol 50 mg tablet 50 mg PO Q8H PRN severe pain #9 03/13/23 tabs Current Visit Medications: Current Medications Generic Name Dose Route Start Last Admin Trade Name Freq PRN Reason Stop Dose Admin Ringer's Solution 1,000 mls @ 30 mls/hr 03/13/23 06:00 IV 04/11/23 23:59 INFUSION CARLEEN Cefazolin Sodium/Dextrose 2 gm in 50 mls @ 100 mls/hr 03/13/23 06:00 Ancef Duplex IVPB 03/13/23 16:00 PREOP CARLEEN Tranexamic Acid 1,000 mg/ 60 mls @ 360 mls/hr 03/13/23 06:00 Sodium Chloride IVPB 03/13/23 16:00 PREOP CARLEEN IV Miscellaneous Supplies 1 each 03/13/23 06:00 Iv Access IV 04/11/23 23:59 DIRECTED CARLEEN Sodium Chloride 0 ml 03/13/23 06:00 Normal Saline Flush 10 Ml Syr IV 04/11/23 23:59 PRN PRN Sodium Chloride 0 ml 03/13/23 06:00 Normal Saline 10 Ml Vial IJ 04/11/23 23:59 DIRECTED PRN Sterile Water 0 ml 03/13/23 06:00 Water,Injection,Sterile 10 Ml Vial IJ 04/11/23 23:59 DIRECTED PRN PFSH Active Problems Active Problems: Problem Status Onset Code Actinic keratosis L57.0 Coronary artery spasm 04/01/16 I20.1 Essential hypertension 07/07/13 I10 Hip pain, left 09/27/14 M25.552 Lumbar facet arthropathy 10/02/14 M47.816 Sensorineural hearing loss, bilateral 06/05/15 H90.3 Tongue lesion 09/03/17 K14.8 Vaginal atrophy 08/01/14 N95.2 Diverticulosis large intestine w/o perforation or abscess w/o bleeding K57.30 Colorectal polyp detected on colonoscopy K63.5 Tendinitis involving right hip abductors 02/15/16 M76.891 Pain of right great toe 08/18/16 M79.674 Non-ST elevation (NSTEMI) myocardial infarction I21.4 Lipoma 08/20/09 D17.9 Anxiety 08/20/09 F41.9 Wheezing R06.2 Reactive airway disease J45.909 Shortness of breath R06.02 Neck pain M54.2 Arthralgia M25.50 Polymyalgia rheumatica M35.3 Vitamin D intoxication E67.3 Arthritis of left shoulder region M19.012 Arthritis of right shoulder region M19.011 Loose body in shoulder joint M24.019 Community acquired pneumonia J18.9 Cervical myelopathy G95.9 Pre-op chest exam Z01.811 Medical History Medical History Abnormal glucose (08/28/15) Anxiety 08/20/09 hyperventilation Cerumen impaction 04/09/15 Diabetes mellitus Diabetes mellitus Elbow joint pain 01/25/13 Elbow joint pain (01/25/13) Elev transaminase/LDH 06/27/94 Elevated LFT's; HEP C neg; ANTB. B POS (had immunization); Ferritin 223; NL transferrin index U/S: prominenet L liver Lobe, ? Fatty infiltration; MRI neg; Dr. Carranza@ [facility] [place] Elevation of level of transaminase and lactic acid dehydrogenase (LDH) (06/27/94) H/O retained foreign body fully removed 09/28/11 removal of foreign body-left thumb Impacted cerumen of both ears Lipoma 08/20/09 LLE Low back pain unspecified laterality, with sciatica presence unspecified. NSTEMI (non-ST elevated myocardial infarction) 03/24/16; [facility] [place]. Per pt. states she did not have an SC, stress-induced takotsubo cardiomyopathy Pain of right great toe 08/18/16 Shingles Shoulder pain, left Tailor's bunion Tailors bunion bilateral Takotsubo cardiomyopathy 2016-stressed induced lost 3 family memebers close together, states has been in very good health since Tendonitis involving right hip abductors 02/15/16 Surgical History Surgical History Appendectomy (~1952) Dilation and curettage History of excision of lesion nevus;foot NEVUS REMOVAL FOOT S/P appendectomy S/P tonsillectomy and adenoidectomy Status post appendectomy Status post tonsillectomy and adenoidectomy THUMB SURGERY (02/16/12) REMOVAL OF F/B LEFT THUMB Tonsillectomy and adenoidectomy (~1950) Tobacco Smoking/Tobacco Use Status: Former Tobacco Use Passive smoking exposure: Yes Second hand exposure: Yes Alcohol Alcohol Intake: current Alcohol intake frequency: holidays/special occasions only Alcohol type: wine Substance Use Substance use: Rarely Substance use type: marijuana Vital Signs and Lab Results Lab Results Blood Type / Crossmatch: No Data to Display Complete Blood Count: White Blood Count 4.70 10^3/uL (4.4-10.8) 02/20/23 08:38 Red Blood Count 4.63 10^6/uL (3.93-5.22) 02/20/23 08:38 Hemoglobin 14.4 g/dL (11.2-15.7) 02/20/23 08:38 Hematocrit 43.9 % (36.0-46.0) 02/20/23 08:38 Platelet Count 299 10^3/uL (130-400) 02/20/23 08:38 Complete Metabolic Panel: Sodium 139 mmol/L (136-145) 02/20/23 08:38 Potassium 4.4 mmol/L (3.5-5.1) 02/20/23 08:38 Chloride 103 mmol/L (98-107) 02/20/23 08:38 Carbon Dioxide 29.4 mmol/L (21.0-32.0) 02/20/23 08:38 BUN 22 mg/dL (7-18) H 02/20/23 08:38 Creatinine 0.9 mg/dL (0.55-1.02) 02/20/23 08:38 Est GFR (CKD-EPI 2020) 64.63 (mL/min/1.73m2) 02/20/23 08:38 Calcium 9.4 mg/dL (8.5-10.1) 02/20/23 08:38 Albumin 3.8 g/dL (3.4-5.0) 02/20/23 08:38 Glucose 105 mg/dL (74-106) 02/20/23 08:38 Hemoglobin A1c 6.1 % (<5.7) H 02/20/23 08:38 Liver Function Panel: Alanine Aminotransferase (ALT/SGPT) 32 U/L (14-59) 02/20/23 08: 38 Aspartate Amino Transf (AST/SGOT) 20 U/L (15-37) 02/20/23 08:38 Coagulation Panel: No Data to Display Cardiac Panel: No Data to Display Arterial Blood Gas: No Data to Display Venous Blood Gas: No Data to Display Pancreas Panel: No Data to Display Thyroid Panel: No Data to Display Infectious Disease: Coronavirus 2019 Source Nasal/Nares 03/13/23 06:35 Blood Cultures: No Data to Display Toxicology Panel: No Data to Display Imaging and Studies Imaging and Studies Study information below may be from another EMR and interpreted by another provider. Please see original notes in EMR for more complete details. EKG Summary: 02/12/2023: Conclusion Sinus rhythm...normal P axis, V-rate 50- 99 Supraventricular bigeminy...bigeminy string>4 w/ SV complexes Probable left atrial enlargement...P >50mS, <-0.10mV V1 Echocardiogram Summary: 04/18/20: Conclusion Left Ventricle : The left ventricle is normal size. The left ventricular systolic function is normal. The left ventricular ejection fraction is within the normal range. There is normal left ventricular wall thickness. There is normal LV segmental wall motion. The left ventricular diastolic function is normal. LVEF is 55-60%. Right Ventricle : The right ventricle is normal size. The right ventricular systolic function is normal. The RVSP is 28 mmHg. Atria : The left atrium size is normal. The right atrium size is normal. Valves: There are no hemodynamically significant valvular lesions. Great Vessels : The aortic root is normal in size. IVC is normal in size and collapses >50% with inspiration. There is no prior study available for comparison. Please see remainder of study for further details Pulmonary Function Summary: 05/02/20: Pulmonary Function Test Result Interpretation Spirometry: Spirometry shows mild obstructive airways disease with no significant bronchodilator response Impression Mild obstructive airways disease with no significant bronchodilator response. If the diagnosis of asthma is in question, proceeding with methacholine challenge testing may prove to be useful. One cannot comment on possible concomitant underlying restriction without total lung capacity measurement. Clinical Correlation therefore is recommended. Other Study Summary:: Cervical Spine MRI: INDIVIDUAL LEVELS: C2-3: No disc herniation nor central canal stenosis. No foraminal stenosis. Mild bilateral facet joint degenerative changes. C3-4: Normal disc height.. No disc herniation. Central canal dimensions are normal. Moderate degenerative changes in the left facet joint.Mild foraminal stenosis on the left side. No significant degenerative changes in the facet joints on the right side. No foraminal stenosis on the right side. C4-5: Normal disc height. No disc herniation or central canal stenosis. No foraminal stenosis on the right side. No facet arthropathy on the right side. On the left side there is significant facet arthropathy and mild left-sided foraminal stenosis. C5-6: This level exhibits chronic advanced disc space narrowing and anterior osteophytes. Posteriorly there is posterior annular protrusion located centrally indents the thecal sac and contacts the anterior aspect of the spinal cord. AP measurement of the canal at this level is 9.5 mm. No prominent central canal stenosis. Are small Luschka joint osteophytes seen bilaterally at this level. There is mild bilateral degenerative change in the facet joints. Significant bilateral foraminal stenosis evident at this level. C6-7: Chronic decreased disc height. Anterior osteophytes. Mild symmetrical annular bulging but no prominent disc herniation at this level. Central canal dimensions are lower normal. There are only mild degenerative changes in the facet joints bilaterally at this level. No prominent foraminal stenosis evident at this level. C7-T1: No disc herniation nor central canal stenosis. Facet arthropathy bilaterally. However, there is no significant foraminal stenosis at this levelno foraminal stenosis. IMPRESSION: 1. Multilevel findings as described above. 2. At C5-6 level there is chronic disc space narrowing and posterior annular protrusion indents the thecal sac and contacts the anterior aspect the spinal cord. There is no prominent central canal stenosis at this level. There is bilateral foraminal stenosis evident at this level due to disc height loss and some facet arthropathy. 3. Other findings as above. Anesthesia Assessment and Plan Anesthesia History Personal History: No History of Anesthesia Complications Family History: No Family History of Anesthesia Complications Exercise Tolerance Exercise Tolerance: Metabolic Equivalents>4 Pertinent Negatives Pertinent Negatives: No Symptoms of GERD, No Major Cardiovascular Symptoms or Complaints and No Major Pulmonary Symptoms or Complaints Cardiac & Pulmonary Exam Cardiac Exam: Normal S1/S2 Heart Sounds Pulmonary Exam: Clear Bilateral Breath Sounds Implantable Cardiac Device Does patient have a Pacemaker or an ICD?: No Airway Exam Known Difficult Airway: No Mallampati Class: 2 Mouth Opening: Normal (> 3cm) Thyromental Distance: Greater than 3 cm Neck Range of Motion: Full ROM Neck Circumference: Normal Teeth Condition: Normal Dentition ASA Classification ASA Score: ASA 2 Emergency Case?: No NPO Status NPO Status: NPO Clears >2 hours, Solids >8 hours Anesthesia Plan Resuscitation Status: Full Code Anesthesia Technique: General Anesthesia Airway Planned: Endotracheal Tube Monitors Used: Standard Monitors, Arterial Line (If required*) and SedLine
[2023-03-13] MEDS: Lactated Ringers 1,000 ML 30 ML IV (07:28)
--- NOTE | 2023-03-13 07:31 | W.PM.DSUDISC ---
Date of service: 03/13/23 Time of Service: 13:00 Discharge Plan Disposition Patient Disposition: Home Discharge Details Attending Provider: Juvencio Talavera Primary Care Provider: Jennifer Savage Home Meds and New Rx's Prescriptions: New naproxen 250 mg tablet 250 - 500 mg PO BID PRNQty: 40 0RF Rx Instructions: take with a meal aspirin 81 mg tablet,delayed release (DR/EC) 81 mg PO DAILY 7 Days Qty: 7 0RF tramadol 50 mg tablet 50 mg PO Q8H PRN (Reason: severe pain) Qty: 9 0RF Continued turmeric 400 mg capsule 400 mg PO DAILY Quercetin w/ Bromalain 1 cap PO DAILY losartan 100 mg tablet 100 mg PO DAILY Qty: 90 4RF loratadine 10 mg tablet 5 mg PO DAILY PRN (Reason: allergy symptoms) multivitamin [Daily Vitamin] 1 EACH tablet 1 tab PO DAILY cholecalciferol (vitamin D3) 1,000 UNIT capsule 2 cap PO DAILY omega-3 fatty acids-fish oil 1 EACH capsule 1 cap PO DAILY Probiotic 1 EACH capsule 1 ea PO DAILY nitroglycerin 0.4 mg tablet, sublingual 0.4 mg Sublingual Q5 HR PRN Qty: 25 0RF Rx Instructions: TAKE EVERY 5 MIN PRN FOR CHEST PAIN epinephrine [EpiPen 2-Jesus] 0.3 mg/0.3 mL auto-injector 0.3 mg IJ DIRECTED PRN (Reason: anaphylaxis) Qty: 1 0RF Discharge Instructions Additional Instructions: Surgery: Left reverse total shoulder arthroplasty (constrained liner) with biceps tenodesis Activity: Do not lift anything heavier than a coffee. You should keep your arm at your side in a neutral position at all times except for gentle range of motion exercises, physical therapy, and essential activities. You should use the sling whenever you are out of the house. You may have to adjust the abduction pillow or remove it for comfort. At home it is best to remove the sling and rest the arm on a pillow at your side or support the operative side with your other hand. A physical therapy prescription will be sent electronically to start in about 3 weeks. 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 and external rotation of 20? ?Strengthening exercises: Light, resisted forward flexion, external rotation, and abduction limited to isometric exercises and therapy bands with concentric motions only. Continue treadle cut off saw operator strengthening ?Restrictions: No resisted internal rotation or backwards extension. No scapular retraction exercises with therapy bands Postoperative Months 3-12 ?Motion exercises: Increase [id number] exercises to achieve full motion, with passive stretching at end ranges ?Strengthening: Begin resisted, internal rotation and backwards extension initially with isometric exercises advancing to light therapy bands and then weights. Advance other shoulder strengthening exercises to include the rotator cuff, deltoid, and scapular stabilizers. Advance to functional strengthening, including plyometric exercises and core strengthening. Prescriptions: Aspirin 81 mg take 1 daily to prevent a blood clot for 1 week (starting tomorrow morning) Naproxen 250 mg take 1-2 every 12 hours with a meal as needed for moderate pain Tramadol 50 mg take 1 every 8 hours as needed for severe pain You may use [id number] Tylenol (acetaminophen) as needed for mild pain. These pain medications may be taken all at once or in different combinations as needed. Also, recommend Colace (docusate) as a stool softener as surgery and pain medicine cause constipation. You may try [id number]-[id number] diphenhydramine (Benadryl) 25-50 mg nightly as a sleep aid Dressings: Leave dressing in place until follow-up. Keep clean and dry at all times. No showers please. Follow-up: 10-[address] Talavera You may take off the leg compression stockings this evening at home. You may also leave them on a few days longer if you have a history of leg swelling or edema. Please call the office during business hours with any questions or concerns. Let us know right away if you develop any redness, drainage, fevers, chest pain, or trouble breathing. Do not drink alcohol or drive for at least 24 hours after anesthesia. Discharge Orders Discharge Orders: Discharge Order (Routine); Ordered 06/16/23 Ordered By: Juvencio Talavera DS: Diagnosis Discharge Diagnosis (1) Arthritis of left shoulder region: Status: Acute
--- NOTE | 2023-03-13 07:35 | ROE_ITS ---
Date of service: 03/13/23 Time of Service: 07:35 Operative Note Operative Note DATE OF PROCEDURE: 03/13/23 PRE-OP DIAGNOSIS: Left: 1. End-stage glenohumeral arthritis 2. Long head of the biceps tendinopathy POST-OP DIAGNOSIS: same PROCEDURE: Left: 1. Reverse total shoulder arthroplasty, CPT # 52536 2. Open biceps tenodesis, CPT # 17514 The perinatal breastfeeding assistant was medically required as this procedure involves retraction, protection of neurovascular structures, and manipulation of multiple instruments and implants at the same time, which cannot be done without a skilled perinatal breastfeeding assistant. SURGEON: Juvencio Talavera EMPLOYMENT EVALUATOR/CASE MANAGER: Fara aRpp ANESTHESIA TYPE: Local By Surgeon and General LMA/ETT Refer to Anesthesia Record ESTIMATED BLOOD LOSS: 75 COMPLICATIONS: None Patient was transported to: PACU Implants: [employer] modular glenoid system baseplate 24 mm, +2mm lateralized [employer] modular glenoid system central post 25 mm [employer] modular glenoid system peripheral locking screws 20 mm inferior, 28 mm superior, none mm posterior, 16 mm anterior [employer] modular glenoid system glenosphere 39+4 mm lateralized [employer] humeral stem 135 degrees size 6 [employer] suture cup size 36 neutral [employer] humeral insert size 36 +6 mm constrained / combo 39 Indications: Please see complete medical record for details. Findings: Significant long head biceps tenosynovitis and profound glenohumeral arthritis with largely preserved rotator cuff Procedure Description: In the operating room, general anesthesia was induced. The patient was positioned beachchair on the operating room table. All bony prominences were well-padded. Preoperative antibiotics were administered. The shoulder was prepped and draped in the usual sterile fashion for shoulder arthroplasty. The correct patient, procedure, and side of the procedure were all verified prior to incision. The deltopectoral approach was preinjected with 30 cc 0.25% bupivacaine containing epinephrine and taken to the anterior shoulder. Care was taken to bluntly dissect the interval between the deltoid and pectoralis major muscles and to identify the cephalic vein within its fat stripe. The the vein was mobilized laterally. Subdeltoid space and conjoined tendon were freed of adhesions. The long head of the biceps tendon was identified just lateral to the lesser tuberosity. The uppermost margin of the pectoralis major tendon was released from the proximal humerus. The long head of the biceps tendon was tenodesed in situ using SutureTape in a [id number] fashion securing it superior margin the pectoralis major tendon. The biceps tendon was amputated and followed proximally to identify the rotator interval. A subscapularis peel was performed taking care to release the entire tendon in a full-thickness fashion from superior to inferior and lateral to medial while bringing the arm gradually into external rotation. Care was taken to avoid the axillary nerve by only working on the bone inferiorly and medially. The subscapularis was tagged using SutureTape in a Justin-Hector fashion and traction used confirm appropriate mobilization of the subscapularis tendon after gentle blunt dissection was used to free up the space anterior and posterior to it. The supraspinatus and infraspinatus were identified and leading edge of the supraspinatus debrided of partial-thickness tearing. Appropriate coagulation was achieved especially interiorly. The anatomic neck was cut using an oscillating saw, with the patient's anatomy having a steeper angle then the 135 degree implant, and the humeral head bone brought back table in case there was a need for future bone grafting. The proximal humeral protection plate was used to provisionally confirm suture cup and glenosphere size. Attention was then turned to the glenoid and retractors were placed and a circumferential release performed using the long head of the biceps remnant to remove soft tissue about the glenoid rim. Care was taken inferiorly to work on bone only between 5 and 7:00 o'clock and bluntly elevate tissues inferiorly. The VIP guide was placed on the glenoid and used to confirm placement and trajectory of the central guidepin. The guidepin was inserted and advanced just through the far cortex ensuring adequate central fixation length. Depth gauge was used to confirm length. The glenosphere sizer was used to confirm positioning and glenosphere size. The backside of the baseplate reamer and underside of glenosphere reamers were then used. There was appropriate eccentri c reaming inferiorly. The central screw drill was then used and guidewire withdrawn from the socket. The baseplate was impacted and fully compressed onto the glenoid surface. The locking guide was then used to drill and place appropriately lengthed inferior, superior, and anterior screws with the posterior screw omitted due to short length. The [id number] reamer was used to confirm adequate peripheral reaming. The glenosphere was applied with the relief pilot and then impacted to engage the Puentes taper. It was then locked with appropriate countersinking of the setscrew. The glenosphere was inspected and found to have good fit, appropriate positioning, and no soft tissue or bony impingement. Attention was then turned back to the proximal humerus, which was delivered from the wound and maintained in external rotation. Reamers were started appropriately posterior to the bicipital groove taking care to maintain in line approach with the humeral canal. Sequential reaming was done from size 5 up to size 6. Next, the broaches were sequentially used to open the proximal humerus starting with a size 5 and going up to size 6 and sunk to the appropriate depth while maintaining approximately 20-25 degrees retroversion. There was good metaphyseal fit and rotational control of the proximal humerus with this size. The neutral offset guide was used to ream for the suture cup. The humeral trial cup was connected. Trialing was commenced with +3 mm liner. The shoulder was reduced and taken through range of motion. Trial components were built up to +6 mm liner to achieve good stability and appropriate tension on the deltoid and conjoined tension. The trial components were removed from the proximal humerus. The wound was copiously irrigated with normal saline. Given the chronic loss of external rotation, advanced age, and limited bone stock decision was made to omit bone tunnel subscapularis repair. A small amount of vancomycin powder was distributed in the proximal humerus. The humeral component and suture cup were impacted into place. The trial liner was/were added, and the shoulder was reduced and range of motion, stability, and tension confirmed to be appropriate. The final liner was then connected, constrained chosen due to lack of subscapularis repair, and range of motion, stability, and tension confirmed to be excellent. The shoulder was copiously irrigated with Betadine and normal saline. 50 cc of combination ropivacaine, clonidine, and ketorolac injection was infiltrated about the deep and superficial tissues for postoperative analgesia. Vancomycin powder was distributed deeply about the shoulder and through subcutaneous tissues. Given the lateralization, the subscapularis did not reduce as expected over the lesser tuberosity. Under traction it was tenotomized at about the mid- joint. The deltopectoral interval was well approximated and only required limited closure burying the cephalic vein with 2-0 Monocryl.. Subcutaneous tissue was irrigated then closed using 2-0 Monocryl in a buried interrupted fashion. Skin was closed using 3-0 Monocryl in a buried subcuticular fashion. Skin glue was applied to the incision. A silver impregnated bandage was placed over the incision. The extremity was placed into a shoulder immobilizer. The patient awoke from anesthesia without complication and was taken to the recovery room in stable condition.
[2023-03-13 08:01] LABS: COVID-19 PCR Negative (Negative)
[2023-03-13] MEDS: ceFAZolin 2 GM/50 ML BAG IVPB (08:46)
--- NOTE | 2023-03-13 11:00 | DI.RAD_ITS ---
Exam(s) XR SHOULDER LT COMPLETE 2+V EXAM: XR SHOULDER LT COMPLETE 2+V CLINICAL HISTORY: Shoulder arthritis. TECHNIQUE: 2D digital imaging was performed. COMPARISON: CR XR SHOULDER BILAT (GENERIC) from 02/06/[address] UPPER EXTREMITY LT WO from 02/16/2023 FINDINGS: Two views: Satisfactory position alignment of the components of the newly placed reverse shoulder prosthesis. N o fracture nor loosening evident. IMPRESSION: Satisfactory postop appearance. DATA REPOSITORY: RADIATION DOSE DELIVERED:
[2023-03-13] MEDS: ePHEDrine 25 MG/5 ML Syringe IVP (12:08)
[2023-03-13] MEDS: ceFAZolin 1 GM/50 ML BAG IVPB (12:11)
[2023-03-13] MEDS: Normal Saline 10 ML VIAL IJ (12:22)
[2023-03-13] MEDS: HYDROmorphone 2 MG/ML SYR IVP ×2 (12:24→12:35)
[2023-03-13] MEDS: fentaNYL 100 MCG/2 ML VIAL IVP (12:49)
--- NOTE | 2023-03-13 14:16 | W.ANESPOSTOP ---
Postoperative Evaluation Date, Time and Location Date Performed: 03/13/23 Time Performed: 14:16 Patient Location: Day Surgery Unit Vital Signs Most Recent Imported Vital Signs: Most Recent Vital Signs Temp Pulse Resp BP Pulse Ox 36.3 C L 82 17 114/67 95 03/13/23 13:39 03/13/23 13:39 03/13/23 13:39 03/13/23 13:39 03/13/23 13:39 Pain Score Most Recent Pain Score: Most Recent Pain Score Pain Level 1 03/13/23 13:39 Assessment Mental Status: Awake (Alert & Oriented to Patient Baseline) Airway and Respiratory Function: Patent airway with normal (patient baseline) respiratory exam Cardiovascular Function: Hemodynamically Stable Hydration Status: Adequately Hydrated Nausea & Vomiting: No Nausea or Vomiting Pain: Pain is tolerable per patient Peripheral Nerve Block: Patient did not receive a nerve block
[2023-03-13] MEDS: traMADol 50 MG TAB PO (14:19)
== END 2023-03-13 15:20 | disposition home or self-care (01) ==
PROVIDERS: PCP Family Medicine; Visit Provider Student in an Organized Health Care Education/Training Program
PROC: (CPT 23472; principal; 2023-03-13 07:30)
DX: M19.012 Primary osteoarthritis, left shoulder (principal); M75.22 Bicipital tendinitis, left shoulder
CPT/HCPCS: 23472; 87635; 73030; C1781; J0131; J0690; J1100; J1170; J1885; J2001; J2371; J2405; J2704; J3010; J3475

== ENCOUNTER 2023-03-24 13:25 | Outpatient (CLI) | payer MEDICARE, SELFPAY ==
--- NOTE | 2023-03-24 13:15 | DI.RAD_ITS ---
Exam(s) XR SHOULDER LT COMPLETE 2+V EXAM: XR SHOULDER LT COMPLETE 2+V INDICATION: left shoulder f/u. COMPARISON: CR XR SHOULDER LT COMPLETE 2+V from 03/13/2023 TECHNIQUE: 2D digital imaging was performed. Three views. FINDINGS: There has been no change in the alignment of the reverse shoulder prosthesis. There are no suspiciou s bony lucencies. There is a small amount of residual postsurgical air in the soft tissues. DATA REPOSITORY: RADIATION DOSE DELIVERED:
== END 2023-03-24 13:26 | disposition home or self-care (01) ==
LOC: DIORS 13:25
PROVIDERS: PCP Family Medicine; Referring Provider Family Medicine; Visit Provider Student in an Organized Health Care Education/Training Program
DX: M19.012 Primary osteoarthritis, left shoulder (principal); Z47.89 Encounter for other orthopedic aftercare
CPT/HCPCS: 73030

== ENCOUNTER 2023-05-19 13:38 | Outpatient (CLI) | payer MEDICARE, SELFPAY ==
--- NOTE | 2023-05-19 13:30 | DI.RAD_ITS ---
Exam(s) XR SHOULDER LT COMPLETE 2+V EXAM: XR SHOULDER LT COMPLETE 2+V CLINICAL HISTORY: left shoulder f/u. TECHNIQUE: 2D digital imaging was performed of the left shoulder. Two images were obtained. AP and Y views were obtained. COMPARISON: CR XR SHOULDER LT COMPLETE 2+V from 03/24/2023 FINDINGS: BONES: No acute fracture is present. No bony destructive lesion is seen. JOINTS: No dislocation present. There are stable postsurgical changes of a left total reverse shoulde r replacement. Orthopedic hardware shows no evidence of failure. Degenerative changes are seen at t he acromioclavicular joint. SOFT TISSUE: Normal. IMPRESSION: Stable left total reverse shoulder replacement. DATA REPOSITORY: RADIATION DOSE DELIVERED:
== END 2023-05-19 13:39 | disposition home or self-care (01) ==
LOC: DIORS 13:38
PROVIDERS: PCP Family Medicine; Referring Provider Family Medicine; Visit Provider Student in an Organized Health Care Education/Training Program
DX: M19.011 Primary osteoarthritis, right shoulder (principal); M19.012 Primary osteoarthritis, left shoulder
CPT/HCPCS: 99213; 73030

== ENCOUNTER → 2023-06-22 00:59 | Outpatient (CLI) | payer MEDICARE, SELFPAY ==
--- NOTE | 2023-06-22 13:30 | DI.CT_ITS ---
Exam(s) CT UPPER EXTREMITY RT WO EXAM: CT UPPER EXTREMITY RT WO CLINICAL HISTORY: SURGICAL PLANNING,ARTHRITIS RT GLENOHUMERAL JOINT,M19.011. TECHNIQUE: Imaging Protocol: Axial computed tomography images with coronal and sagittal reformatted images were created and reviewed. COMPARISON: CR XR SHOULDER BILAT (GENERIC) from 02/06/2023 FINDINGS: Bones: There are marked degenerative changes seen at the glenohumeral joint characterized by joint s pace narrowing and osteophytes. Subchondral sclerosis and cysts are also noted. The acromioclavicul ar joint is well maintained. Dystrophic calcifications may lie within the subcoracoid bursa. There is no evidence of joint space narrowing or cystic degeneration seen. No suspicious lytic or sclerotic lesions are identified. Soft Tissues: Normal. IMPRESSION: Marked osteoarthritis of the glenohumeral joint. RADIATION DOSE DELIVERED: 707.37mGy.cm Total DLP 707.37mGy.cm Total DLP DATA REPOSITORY: All CT scans at this facility are submitted to the National Radiology Data Registry (NRDR) Dose Index Registry (DIR) with the [employer] ([employer]). RADIATION OPTIMIZATION: All CT scans at this facility use at least one of these dose optimization te chniques: automated exposure control; mA and/or kV adjustment per patient size (includes targeted exa ms where dose is matched to clinical indication); or iterative reconstruction.
== END ==
PROVIDERS: PCP Family Medicine; Visit Provider Student in an Organized Health Care Education/Training Program
DX: M19.011 Primary osteoarthritis, right shoulder
CPT/HCPCS: 73200

== ENCOUNTER 2023-06-29 19:48 | Outpatient (CLI) | payer MEDICARE, SELFPAY ==
[2023-06-29 14:17] LABS: Hemoglobin A1C 6.1 % (<5.7)
[2023-06-29 14:50] LABS: ALT 35 U/L (14-59); AST 18 U/L (15-37); Alkaline Phosphatase 72 U/L (46-116); Anion Gap 8.6 mmol/L (3-11); BUN 22 mg/dL (7-18); Bilirubin, Total 0.4 mg/dL (0.2-1.0); CO2 26.4 mmol/L (21.0-32.0); CREATININE 0.9 mg/dL (0.55-1.02); Calcium 9.9 mg/dL (8.5-10.1); Chloride 102 mmol/L (98-107); Estimated GFR 64.63 (mL/min/1.73m2); Glucose 132 mg/dL (74-106); Potassium 4.3 mmol/L (3.5-5.1); Sodium 137 mmol/L (136-145); Total Protein 7.3 g/dL (6.4-8.2)
--- OUTSIDE RECORDS SUMMARY | 2023-06-29 19:52 | XMS_ITS | Continuity of Care Document ---
Author Name Unknown Organization [facility] Ambulatory Clinics Address [address] [place] [address] Care Team Providers Care Electric Motor Repairer Name Role Phone CASS SLATER DC, DEANN Daniel Primary Care Physician Encounter [id number] NBR [id number] Date(s): 12/29/22 - 12/29/22 [facility] Ambulatory Clinics [address] [place] [address] us Social History Social History Type Response Sex Female Patient Care team information Care Team Personnel Name: CASS SLAETR DC, DEANN Daniel Position: No Access Member Role: Primary Care Physician Address: Address: [address] [id number]
== END 2023-06-29 19:49 | disposition home or self-care (01) ==
LOC: LBO 19:48
PROVIDERS: PCP Family Medicine; Visit Provider Family Medicine
DX: E11.9 Type 2 diabetes mellitus without complications (principal); I10 Essential (primary) hypertension
CPT/HCPCS: 36415; 80053; 83036

== ENCOUNTER 2023-07-10 04:34 | Outpatient (CLI) | payer MEDICARE, SELFPAY ==
[2023-07-10 13:00] LABS: C-Reactive Protein 0.67 mg/dL (0.0-0.3); TSH (W/Ref FT4) 1.15 uIU/mL (0.36-3.74)
[2023-07-10 13:41] LABS: Vitamin B12 427 pg/mL (193-986)
[2023-07-13 14:12] LABS: Albumin 59.7 % (55.8-66.1); Albumin g/dL 4.1 g/dL (3.6-5.2); Total Protein 6.9 g/dL (6.3-8.2)
== END 2023-07-10 04:35 | disposition home or self-care (01) ==
LOC: LOS 04:34
PROVIDERS: PCP Family Medicine; Visit Provider Family Medicine
DX: G62.9 Polyneuropathy, unspecified (principal); E03.9 Hypothyroidism, unspecified
CPT/HCPCS: 36415; 82607; 84165; 84443; 86140

== ENCOUNTER → 2023-07-15 12:58 | Outpatient (BNVA) | payer MEDICARE, SELFPAY | PROVIDERS: PCP Family Medicine; Referring Provider Family Medicine; Visit Provider Student in an Organized Health Care Education/Training Program | DX: M19.011 Primary osteoarthritis, right shoulder (principal); Z96.612 Presence of left artificial shoulder joint | CPT/HCPCS: 99214 ==

== ENCOUNTER 2023-07-30 06:09 | Day surgery (SDC) | payer MEDICARE, SELFPAY ==
[2023-07-30] VITALS (11 sets, daily range): BP systolic 122–177; BP diastolic 42–96; PULSE 76–89; RESP 12–27; TEMP 36.2–36.4; O2SAT 16–98; BMI 27.2
[2023-07-30] MEDS: Lactated Ringers 1,000 ML 30 ML IV (06:52)
--- NOTE | 2023-07-30 07:11 | W.ANESPRE ---
General Info Date of Service Date Performed: 07/30/23 Height: 5 ft 4.5 in Weight: 73.1 kg Body Mass Index (BMI): 27.2 Surgical Procedure: Operation Date: 07/30/23 07:55 Proposed Procedure Side Surgeon p Shoulder Reverse Total Arthroplasty Right Juvencio Talavera MD Meds Allergies and Home Medications Allergies Allergy/AdvReac Type Severity Reaction Status Date / Time Iodinated Contrast Media Allergy Severe Anaphylaxis Verified 07/29/23 13:54 [Iodinated Contrast Media - Oral and] pneumococcal 23-valent Allergy Severe Verified 07/29/23 13:54 polysacchari [From Pneumovax ] venom-wasp Allergy Severe Anaphylaxis Verified 07/29/23 13:54 erythromycin base Allergy Intermediate Rash Verified 07/29/23 13:54 cephalexin Allergy Feel Verified 07/29/23 13:54 funny- Scalp on head is rising up lisinopril AdvReac Cough Verified 07/29/23 13:54 Penicillins AdvReac Verified 07/29/23 13:54 Tetracyclines AdvReac N/V Verified 07/29/23 13:54 Home Medication Medication Instructions Recorded cholecalciferol (vitamin D3) 25 2 cap PO DAILY 01/26/13 mcg (1,000 unit) capsule multivitamin (Daily Vitamin tablet) 1 tab PO DAILY 01/26/13 omega-3 fatty acids-fish oil 300 1 cap PO DAILY 01/26/13 mg-1,000 mg capsule Lactobacillus acidophilus 10 1 ea PO DAILY 07/07/13 billion cell capsule (Probiotic) nitroglycerin 0.4 mg sublingual 0.4 mg sublingual Q5 HR PRN #25 08/30/21 tablet tabs loratadine 10 mg tablet 5 mg PO DAILY PRN allergy symptoms 03/19/22 turmeric 400 mg capsule 400 mg PO DAILY 05/26/22 losartan 100 mg tablet 100 mg PO DAILY #90 tab-caps 02/12/23 naproxen 250 mg tablet 250 - 500 mg (1 - 2 x 250 mg) PO 03/13/23 BID PRN #40 tabs epinephrine 0.3 mg/0.3 mL 0.3 mg (0.3 mL) IJ DIRECTED PRN 06/10/23 injection, auto-injector (EpiPen anaphylaxis ##1 2-Jesus) bimatoprost 0.01 % eye drops 1 drp ophthalmic (eye) DAILY 06/30/23 (Isidra) milk thistle 175 mg tablet 175 mg PO DAILY 06/30/23 tetanus and diphther. tox (PF) 5 0.5 ml IM ONCE #0.5 mL 06/30/23 Lf unit-2 Lf unit/0.5 mL IM susp Current Visit Medications: Current Medications Generic Name Dose Route Start Last Admin Trade Name Freq PRN Reason Stop Dose Admin Ringer's Solution 1,000 mls @ 30 mls/hr 07/30/23 06:00 07/30/23 06:52 IV 08/28/23 23:59 30 mls/hr INFUSION CARLEEN Administration Cefazolin Sodium/Dextrose 2 gm in 50 mls @ 100 mls/hr 07/30/23 06:00 Ancef Duplex IVPB 07/30/23 16:00 PREOP CARLEEN Tranexamic Acid 1,000 mg/ 60 mls @ 360 mls/hr 07/30/23 06:00 Sodium Chloride IVPB 07/30/23 16:00 PREOP CARLEEN IV Miscellaneous Supplies 1 each 07/30/23 06:00 Iv Access IV 08/28/23 23:59 DIRECTED CARLEEN Sodium Chloride 0 ml 07/30/23 06:00 Normal Saline Flush 10 Ml Syr IV 08/28/23 23:59 PRN PRN Sodium Chloride 0 ml 07/30/23 06:00 Normal Saline 10 Ml Vial IJ 08/28/23 23:59 DIRECTED PRN Sterile Water 0 ml 07/30/23 06:00 Water,Injection,Sterile 10 Ml Vial IJ 08/28/23 23:59 DIRECTED PRN PFSH Active Problems Active Problems: Problem Status Onset Code Reaction to insect bite W57.XXXA Polyneuropathy G62.9 Arthritis of right glenohumeral joint M19.011 Bilateral hearing loss due to cerumen impaction H61.23 Actinic keratosis L57.0 Coronary artery spasm 04/01/16 I20.1 Essential hypertension 07/07/13 I10 Hip pain, left 09/27/14 M25.552 Lumbar facet arthropathy 10/02/14 M47.816 Sensorineural hearing loss, bilateral 06/05/15 H90.3 Tongue lesion 09/03/17 K14.8 Vaginal atrophy 08/01/14 N95.2 Diverticulosis large intestine w/o perforation or abscess w/o bleeding K57.30 Colorectal polyp detected on colonoscopy K63.5 Tendinitis involving right hip abductors 02/15/16 M76.891 Pain of right great toe 08/18/16 M79.674 Non-ST elevation (NSTEMI) myocardial infarction I21.4 Lipoma 08/20/09 D17.9 Anxiety 08/20/09 F41.9 Wheezing R06.2 Reactive airway disease J45.909 Shortness of breath R06.02 Neck pain M54.2 Arthralgia M25.50 Polymyalgia rheumatica M35.3 Vitamin D intoxication E67.3 Arthritis of left shoulder region M19.012 Arthritis of right shoulder region M19.011 Loose body in shoulder joint M24.019 Community acquired pneumonia J18.9 Cervical myelopathy G95.9 Pre-op chest exam Z01.811 Medical History Medical History Abnormal glucose (08/28/15) Anxiety 08/20/09 hyperventilation Cerumen impaction 04/09/15 Diabetes mellitus Diabetes mellitus Elbow joint pain 01/25/13 Elbow joint pain (01/25/13) Elev transaminase/LDH 06/27/94 Elevated LFT's; HEP C neg; ANTB. B POS (had immunization); Ferritin 223; NL transferrin index 4/98 U/S: prominenet L liver Lobe, ? Fatty infiltration; MRI neg; Dr. Carranza@ [facility] [place] Elevation of level of transaminase and lactic acid dehydrogenase (LDH) (06/27/94) H/O retained foreign body fully removed 09/28/11 removal of foreign body-left thumb Impacted cerumen of both ears Lipoma 08/20/09 LLE Low back pain unspecified laterality, with sciatica presence unspecified. NSTEMI (non-ST elevated myocardial infarction) 03/24/16; [facility] [place]. Per pt. states she did not have an [place], stress-induced takotsubo cardiomyopathy Pain of right great toe 08/18/16 Shingles Shoulder pain, left Tailor's bunion Tailors bunion bilateral Takotsubo cardiomyopathy 2016-stressed induced lost 3 family memebers close together, states has been in very good health since Tendonitis involving right hip abductors 02/15/16 Surgical History Surgical History Appendectomy (~1951) Dilation and curettage History of excision of lesion nevus;foot NEVUS REMOVAL FOOT S/P appendectomy S/P tonsillectomy and adenoidectomy Status post appendectomy Status post tonsillectomy and adenoidectomy THUMB SURGERY (02/16/12) REMOVAL OF F/B LEFT THUMB Tonsillectomy and adenoidectomy (~1950) Tobacco Smoking/Tobacco Use Status: Former Tobacco Use Passive smoking exposure: Yes Second hand exposure: Yes Alcohol Alcohol Intake: current Alcohol intake frequency: holidays/special occasions only Alcohol type: wine Substance Use Substance use: Rarely Substance use type: marijuana Vital Signs and Lab Results Vital Signs Most Recent Vital Signs in EMR: Most Recent Vital Signs Temp Pulse Resp BP Pulse Ox 36.3 C L 89 16 177/86 H 97 07/30/23 06:28 07/30/23 06:28 07/30/23 06:28 07/30/23 06:28 07/30/23 06:28 Lab Results Blood Type / Crossmatch: No Data to Display Complete Blood Count: No Data to Display Complete Metabolic Panel: C-Reactive Protein 0.67 mg/dL (0.0-0.3) H 07/10/23 10:57 Liver Function Panel: No Data to Display Coagulation Panel: No Data to Display Cardiac Panel: No Data to Display Arterial Blood Gas: No Data to Display Venous Blood Gas: No Data to Display Pancreas Panel: No Data to Display Thyroid Panel: Thyroid Stimulating Hormone (TSH) 1.15 uIU/mL (0.36-3.74) 07/10/23 10:57 Infectious Disease: No Data to Display Blood Cultures: No Data to Display Toxicology Panel: No Data to Display Imaging and Studies Imaging and Studies Study information below may be from another EMR and interpreted by another provider. Please see original notes in EMR for more complete details. EKG Summary: 02/12/2023: Conclusion Sinus rhythm...normal P axis, V-rate 50- 99 Supraventricular bigeminy...bigeminy string>4 w/ SV complexes Probable left atrial enlargement...P >50mS, <-0.10mV V1 Echocardiogram Summary: 04/18/20: Conclusion Left Ventricle : The left ventricle is normal size. The left ventricular systolic function is normal. The left ventricular ejection fraction is within the normal range. There is normal left ventricular wall thickness. There is normal LV segmental wall motion. The left ventricular diastolic function is normal. LVEF is 55-60%. Right Ventricle : The right ventricle is normal size. The right ventricular systolic function is normal. The RVSP is 28 mmHg. Atria : The left atrium size is normal. The right atrium size is normal. Valves: There are no hemodynamically significant valvular lesions. Great Vessels : The aortic root is normal in size. IVC is normal in size and collapses >50% with inspiration. There is no prior study available for comparison. Please see remainder of study for further details Pulmonary Function Summary: 05/02/20: Pulmonary Function Test Result Interpretation Spirometry: Spirometry shows mild obstructive airways disease with no significant bronchodilator response Impression Mild obstructive airways disease with no significant bronchodilator response. If the diagnosis of asthma is in question, proceeding with methacholine challenge testing may prove to be useful. One cannot comment on possible concomitant underlying restriction without total lung capacity measurement. Clinical Correlation therefore is recommended. Other Study Summary:: Cervical Spine MRI: INDIVIDUAL LEVELS: C2-3: No disc herniation nor central canal stenosis. No foraminal stenosis. Mild bilateral facet joint degenerative changes. C3-4: Normal disc height.. No disc herniation. Central canal dimensions are normal. Moderate degenerative changes in the left facet joint.Mild foraminal stenosis on the left side. No significant degenerative changes in the facet joints on the right side. No foraminal stenosis on the right side. C4-5: Normal disc height. No disc herniation or central canal stenosis. No foraminal stenosis on the right side. No facet arthropathy on the right side. On the left side there is significant facet arthropathy and mild left-sided foraminal stenosis. C5-6: This level exhibits chronic advanced disc space narrowing and anterior osteophytes. Posteriorly there is posterior annular protrusion located centrally indents the thecal sac and contacts the anterior aspect of the spinal cord. AP measurement of the canal at this level is 9.5 mm. No prominent central canal stenosis. Are small Luschka joint osteophytes seen bilaterally at this level. There is mild bilateral degenerative change in the facet joints. Significant bilateral foraminal stenosis evident at this level. C6-7: Chronic decreased disc height. Anterior osteophytes. Mild symmetrical annular bulging but no prominent disc herniation at this level. Central canal dimensions are lower normal. There are only mild degenerative changes in the facet joints bilaterally at this level. No prominent foraminal stenosis evident at this level. C7-T1: No disc herniation nor central canal stenosis. Facet arthropathy bilaterally. However, there is no significant foraminal stenosis at this levelno foraminal stenosis. IMPRESSION: 1. Multilevel findings as described above. 2. At C5-6 level there is chronic disc space narrowing and posterior annular protrusion indents the thecal sac and contacts the anterior aspect the spinal cord. There is no prominent central canal stenosis at this level. There is bilateral foraminal stenosis evident at this level due to disc height loss and some facet arthropathy. 3. Other findings as above. Anesthesia Assessment and Plan Anesthesia History Personal History: No History of Anesthesia Complications Family History: No Family History of Anesthesia Complications Exercise Tolerance Exercise Tolerance: Metabolic Equivalents>4 Pertinent Negatives Pertinent Negatives: No Symptoms of GERD Cardiac & Pulmonary Exam Cardiac Exam: Normal S1/S2 Heart Sounds Pulmonary Exam: Clear Bilateral Breath Sounds Implantable Cardiac Device Does patient have a Pacemaker or an ICD?: No Airway Exam Known Difficult Airway: No Mallampati Class: 2 Mouth Opening: Normal (> 3cm) Thyromental Distance: Greater than 3 cm Neck Range of Motion: Full ROM Neck Circumference: Normal Teeth Condition: Normal Dentition ASA Classification ASA Score: ASA 3 Emergency Case?: No NPO Status NPO Status: NPO Clears >2 hours, Solids >8 hours Anesthesia Plan Resuscitation Status: Full Code Anesthesia Technique: General Anesthesia Airway Planned: Endotracheal Tube Monitors Used: Standard Monitors
--- NOTE | 2023-07-30 07:26 | W.PM.DSUDISC ---
Date of service: 07/30/23 Time of Service: 14:30 Discharge Plan Disposition Patient Disposition: Home Condition: Stable Discharge Details Attending Provider: Juvencio Talavera Primary Care Provider: Jennifer Savage Home Meds and New Rx's Prescriptions: Continued turmeric 400 mg capsule 400 mg PO DAILY milk thistle 175 mg tablet 175 mg PO DAILY Rx Instructions: give with meal/snack Lumigan 0.01 % drops 1 drp ophthalmic (eye) DAILY tetanus and diphther. tox (PF) 5 Lf unit- 2 Lf unit/0.5mL suspension 0.5 ml IM ONCE Qty: 0.5 0RF Rx Instructions: as a single dose losartan 100 mg tablet 100 mg PO DAILY Qty: 90 4RF loratadine 10 mg tablet 5 mg PO DAILY PRN (Reason: allergy symptoms) multivitamin [Daily Vitamin] 1 EACH tablet 1 tab PO DAILY cholecalciferol (vitamin D3) 1,000 UNIT capsule 2 cap PO DAILY omega-3 fatty acids-fish oil 1 EACH capsule 1 cap PO DAILY Probiotic 1 EACH capsule 1 ea PO DAILY nitroglycerin 0.4 mg tablet, sublingual 0.4 mg Sublingual Q5 HR PRN Qty: 25 0RF Rx Instructions: TAKE EVERY 5 MIN PRN FOR CHEST PAIN epinephrine [EpiPen 2-Jesus] 0.3 mg/0.3 mL auto-injector 0.3 mg IJ DIRECTED PRN (Reason: anaphylaxis) Qty: 1 0RF naproxen 250 mg tablet 250 - 500 mg PO BID PRNQty: 40 0RF Rx Instructions: take with a meal Discharge Instructions Additional Instructions: Surgery: Right reverse total shoulder arthroplasty (constrained liner) with biceps tenodesis Activity: Do not lift anything heavier than a coffee. You should keep your arm at your side in a neutral position except for gentle range of motion exercises, physical therapy, and essential activities. You should use the sling whenever you are out of the house. You may have to adjust the abduction pillow or remove it for comfort. At home it is best to remove the sling and rest the arm on a pillow at your side or support the operative side with your other hand. A physical therapy prescription will be sent electronically to start in about 3 weeks. MODIFIED Reverse TSA Protocol: Immediate AROM ok. Prescriptions: Aspirin 81 mg take 1 daily to prevent a blood clot for 1 weeks Naproxen 250 mg take 1-2 every 12 hours with a meal as needed for moderate pain Tramadol 50 mg take 1 every 6-8 hours as needed for severe pain You may use [id number] Tylenol (acetaminophen) as needed for mild pain. These pain medications may be taken all at once or in different combinations as needed. Also, recommend Colace (docusate) as a stool softener as surgery and pain medicine cause constipation. You may try [id number] diphenhydramine (Benadryl) 25-50 mg nightly as a sleep aid Dressings: Leave dressing in place until follow-up. Keep clean and dry at all times. No showers please. Follow-up: 10-[address] Talavera 08/12/2023 @ 1:15 pm. You may take off the leg compression stockings this evening at home. You may also leave them on a few days longer if you have a history of leg swelling or edema. Please call the office during business hours with any questions or concerns. Let us know right away if you develop any redness, drainage, fevers, chest pain, or trouble breathing. Do not drink alcohol or drive for at least 24 hours after anesthesia. Stand Alone Forms: Anesthesia Discharge Inst., Cam Medrano (DSU) Discharge Orders Discharge Orders: Discharge Order (Routine); Ordered 07/30/23 Ordered By: Flash Ch DS: Diagnosis Discharge Diagnosis (1) Arthritis of right glenohumeral joint: Status: Acute
[2023-07-30] MEDS: ceFAZolin 2 GM/50 ML BAG IVPB (08:26)
[2023-07-30] MEDS: EPINEPHrine 1 MG/ML AMP pres-free (09:11)
[2023-07-30] MEDS: Bupivacaine 0.25% Pres-Free 30 ML VIAL (09:12)
--- NOTE | 2023-07-30 11:00 | DI.RAD_ITS ---
Exam(s) XR SHOULDER RT COMPLETE 2+V EXAM: XR SHOULDER RT COMPLETE 2+V CLINICAL HISTORY: Shoulder Arthritis. TECHNIQUE: 2D digital imaging was performed. Three images were obtained. Grashey and Y views were o btained. COMPARISON: CR XR SHOULDER RT COMPLETE 2+V from 07/23/[address] UPPER EXTREMITY RT WO from 06/22/2023 FINDINGS: The patient is now status post right total reverse shoulder replacement. The orthopedic hardware robin ears in good position. The bones are intact and normally mineralized. Postsurgical changes are seen in the soft tissues. The visualized lungs are clear. IMPRESSION: Status post right total reverse shoulder replacement. DATA REPOSITORY: RADIATION DOSE DELIVERED:
--- NOTE | 2023-07-30 11:02 | W.PM.OP ---
Date of service: 07/30/23 Time of Service: 11:00 Operative Note Operative Note DATE OF PROCEDURE: 07/30/23 PRE-OP DIAGNOSIS: Right: 1. End-stage glenohumeral arthritis 2. Long head of the biceps tendinopathy POST-OP DIAGNOSIS: same PROCEDURE: Right: 1. Reverse total shoulder arthroplasty, CPT # [address] 2. Open biceps tenodesis, CPT # 52248 The medical assistant float was medically required as this procedure involves retraction, protection of neurovascular structures, and manipulation of multiple instruments and implants at the same time, which cannot be done without a skilled medical assistant float. SURGEON: Juvencio Talavera SENIOR BUSINESS ARCHITECT: Flash Ch ANESTHESIA TYPE: Local By Surgeon and General LMA/ETT Refer to Anesthesia Record ESTIMATED BLOOD LOSS: 75 COMPLICATIONS: None Patient was transported to: PACU Implants: [employer] modular glenoid system baseplate 24 mm, +2mm lateralized [employer] modular glenoid system central post 25 mm [employer] modular glenoid system peripheral locking screws 28 mm inferior, 20 mm superior, 16 mm posterior, 20 mm anterior [employer] modular glenoid system glenosphere 39+4 mm lateralized [employer] humeral stem 135 degrees size 6 [employer] suture cup size 36 neutral [employer] humeral insert size 36 +6 mm constrained / combo 39 Indications: Please see complete medical record for details. Findings: Significant long head biceps tenosynovitis and profound glenohumeral arthritis with largely preserved rotator cuff Procedure Description: In the operating room, general anesthesia was induced. The patient was positioned beachchair on the operating room table. All bony prominences were well-padded. Preoperative antibiotics were administered. The shoulder was prepped and draped in the usual sterile fashion for shoulder arthroplasty. The correct patient, procedure, and side of the procedure were all verified prior to incision. The deltopectoral approach was preinjected with 30 cc 0.25% bupivacaine containing epinephrine and taken to the anterior shoulder. Care was taken to bluntly dissect the interval between the deltoid and pectoralis major muscles and to identify the cephalic vein within its fat stripe. The the vein was mobilized medially. Subdeltoid space and conjoined tendon were freed of adhesions. The long head of the biceps tendon was identified just lateral to the lesser tuberosity. The uppermost margin of the pectoralis major tendon was released from the proximal humerus. The long head of the biceps tendon was tenodesed in situ using SutureTape in a [id number] fashion securing it superior margin the pectoralis major tendon. The biceps tendon was amputated and followed proximally to identify the rotator interval. A subscapularis tenotomy was performed while bringing the arm gradually into external rotation. Care was taken to avoid the axillary nerve by only working on the bone inferiorly and medially. The subscapularis remnant was removed from the lesser tuberosity.. The supraspinatus and infraspinatus were identified and anterior supraspinatus debrided of partial-thickness tearing. Appropriate coagulation was achieved especially interiorly. The anatomic neck was cut using an oscillating saw, with the patient's varus arthritic anatomy having a steeper angle then the 135 degree implant, and the humeral head bone brought back table in case there was a need for future bone grafting. The proximal humeral protection plate was used to provisionally confirm suture cup and glenosphere size. Reamers were started appropriately posterior to the bicipital groove taking care to maintain in line approach with the humeral canal. Sequential reaming was done from size 5 up to size 6. Next, the broaches were sequentially used to open the proximal humerus starting with a size 5 and going up to size 6 and sunk to the best depth culminating the small bone size while maintaining approximately 20-25 degrees retroversion. There was good metaphyseal fit and rotational control of the proximal humerus with this size. The neutral offset guide was used to ream for the suture cup. Attention was then turned to the glenoid and retractors were placed and a circumferential release performed using the long head of the biceps remnant to remove soft tissue about the glenoid rim. Care was taken inferiorly to work on bone only between 5 and 7:00 o'clock and bluntly elevate tissues inferiorly. The the standard guide was placed centrally in the glenoid, adjusted mildly to eccentrically ream inferiorly and anteriorly to correct inclination and retroversion. The guidepin was inserted and advanced just through the far cortex ensuring adequate central fixation length. Depth gauge was used to confirm length. The glenosphere sizer was used to confirm positioning and glenosphere size. The backside of the baseplate reamer and underside of glenosphere reamers were then used. There was appropriate preparation of the glenoid surface with removal of the sclerotic bone and eccentric reaming inferiorly and anteriorly. The central screw drill was then used and guidewire withdrawn from the socket. The baseplate was impacted and fully compressed onto the glenoid surface. The locking guide was then used to drill and place appropriately lengthed inferior, superior, and anterior screws and posterior screws. The [id number] reamer was used to confirm adequate peripheral reaming. The glenosphere was applied with the bevel mill operator and then impacted to engage the Puentes taper. It was then locked with appropriate countersinking of the setscrew. The glenosphere was inspected and found to have good fit, appropriate positioning, and no soft tissue or bony impingement. Attention was then turned back to the proximal humerus, which was delivered from the wound and maintained in external rotation. The humeral trial cup was connected. Trialing was commenced with +3 mm liner. The shoulder was reduced and taken through range of motion. Trial components were built up to +6 mm liner to achieve good stability and appropriate tension on the deltoid and conjoined tension. The trial components were removed from the proximal humerus. The wound was copiously irrigated with normal saline. A small amount of vancomycin powder was distributed in the proximal humerus. The humeral component and suture cup were impacted into place. They sat at the exact same place as the trials so the final combo constrained liner was connected. The shoulder was reduced and range of motion, stability, and tension confirmed to be good. The shoulder was copiously irrigated with Betadine and normal saline. 50 cc of combination ropivacaine, clonidine, and ketorolac injection was infiltrated about the deep and superficial tissues for postoperative analgesia. Vancomycin powder was distributed deeply about the shoulder and through subcutaneous tissues. The deltopectoral interval was approximated burying the cephalic vein with a couple 2-0 Monocryl stitches. The subcutaneous tissue was irrigated then closed using 2-0 Monocryl in a buried interrupted fashion. Skin was closed using 3-0 Monocryl in a buried subcuticular fashion. Skin glue was applied to the incision. A silver impregnated bandage was placed over the incision. The extremity was placed into a shoulder immobilizer. The patient awoke from anesthesia without complication and was taken to the recovery room in stable condition.
[2023-07-30] MEDS: ceFAZolin 1 GM/50 ML BAG IVPB (11:43)
[2023-07-30] MEDS: fentaNYL 100 MCG/2 ML VIAL IVP ×2 (11:55→12:01)
[2023-07-30] MEDS: traMADol 50 MG TAB PO (13:10)
--- NOTE | 2023-07-30 13:24 | W.ANESPOSTOP ---
Postoperative Evaluation Date, Time and Location Date Performed: 07/30/23 Time Performed: 13:24 Patient Location: Day Surgery Unit Vital Signs Most Recent Imported Vital Signs: Most Recent Vital Signs Temp Pulse Resp BP Pulse Ox 36.4 C L 80 16 156/58 H 16 L 07/30/23 13:19 07/30/23 13:19 07/30/23 13:19 07/30/23 13:19 07/30/23 13:19 Pain Score Most Recent Pain Score: Most Recent Pain Score Pain Level 3 07/30/23 13:19 Assessment Mental Status: Awake (Alert & Oriented to Patient Baseline) Airway and Respiratory Function: Patent airway with normal (patient baseline) respiratory exam Cardiovascular Function: Hemodynamically Stable Hydration Status: Adequately Hydrated Nausea & Vomiting: No Nausea or Vomiting Pain: Pain is tolerable per patient Peripheral Nerve Block: Patient did not receive a nerve block
== END 2023-07-30 14:56 | disposition home or self-care (01) ==
PROVIDERS: PCP Family Medicine; Visit Provider Student in an Organized Health Care Education/Training Program
PROC: (CPT 23472; principal; 2023-07-30 07:45)
DX: M19.011 Primary osteoarthritis, right shoulder (principal); M75.21 Bicipital tendinitis, right shoulder
CPT/HCPCS: 23472; 23430; C1713; 73030; J0131; J0171; J0690; J1100; J1885; J2250; J2371; J2405; J2704; J3010

== ENCOUNTER 2023-08-12 16:02 | Outpatient (CLI) | payer MEDICARE, SELFPAY ==
--- NOTE | 2023-08-12 13:15 | DI.RAD_ITS ---
Exam(s) XR SHOULDER RT COMPLETE 2+V EXAM: XR SHOULDER RT COMPLETE 2+V INDICATION: left shoulder f/u. COMPARISON: CR XR SHOULDER LT COMPLETE 2+V from 03/24/2023 CR XR SHOULDER LT COMPLETE 2+V from 05/19/2023 CR XR SHOULDER RT COMPLETE 2+V from 07/30/2023 TECHNIQUE: 2D digital imaging was performed. Two views. FINDINGS: There has been no change in the alignment of the reverse shoulder prosthesis. There are no suspiciou s bony lucencies. Calcification again noted in subcoracoid space. DATA REPOSITORY: RADIATION DOSE DELIVERED:
== END 2023-08-12 16:03 | disposition home or self-care (01) ==
LOC: DIORS 16:02
PROVIDERS: PCP Family Medicine; Referring Provider Family Medicine; Visit Provider Student in an Organized Health Care Education/Training Program
DX: M19.012 Primary osteoarthritis, left shoulder (principal); Z47.1 Aftercare following joint replacement surgery; Z96.611 Presence of right artificial shoulder joint
CPT/HCPCS: 73030

== ENCOUNTER 2023-08-26 11:35 | Inpatient (IN) | payer MEDICARE, SELFPAY ==
[2023-08-26] VITALS (29 sets, daily range): BP systolic 146–210; BP diastolic 76–120; PULSE 77–94; RESP 18–34; TEMP 36.2–36.9; O2SAT 93–99
--- NOTE | 2023-08-26 12:00 | DI.CT_ITS ---
Exam(s) CT HEAD WO EXAM: CT HEAD WO CLINICAL HISTORY: Rule out stroke, left deficits. TECHNIQUE: Imaging Protocol: Axial computed tomography images with coronal and sagittal reformatted images were created and reviewed COMPARISON: No exams were available for comparison FINDINGS: Ventricles and Extra axial spaces: Normal in size and morphology for the patient's age. Hemorrhage: None. Cerebral parenchyma: There are areas of decreased attenuation in the white matter consistent with sma ll vessel ischemic disease. No mass effect is identified. Midline shift: None. Brainstem/Cerebellum: Normal. Calvarium: Normal. Visualized Paranasal sinuses/Mastoids: Clear. Soft Tissues: Unremarkable. IMPRESSION: 1. No acute intracranial process. If there is further evaluation warranted, an MRI of the brain sh ould be obtained. 2. Findings were discussed with Dr. Ordonez at 1 p.m. on 08/26/2023. RADIATION DOSE DELIVERED: Total DLP DATA REPOSITORY: All CT scans at this facility are submitted to the National Radiology Data Registry (NRDR) Dose Index Registry (DIR) with the [employer] (ACR). RADIATION OPTIMIZATION: All CT scans at this facility use at least one of these dose optimization te chniques: automated exposure control; mA and/or kV adjustment per patient size (includes targeted exa ms where dose is matched to clinical indication); or iterative reconstruction.
--- NOTE | 2023-08-26 12:00 | RT.EKG_ITS ---
APPROVED REPORT Exam: Resting ECG Reason for Exam: stroke Patient Location: E HR:84 bpm ECG Measurements Heart Rate 84 AXIS RI 181 P 80 QRSd 95 QRS -32 QT 405 T 84 QTc 477 Conclusion Sinus rhythm...normal P axis, V-rate 60- 99 Atrial premature complexes...SV complexes w/ short R-R intvls Left axis deviation...QRS axis (-30,-90) Physician: no stemi
[2023-08-26 12:32] LABS: Abs Immature Grans 0.03 10^3/uL (0.0-0.06); Absolute Basophil Count 0.04 10^3/uL (0.0-0.2); Absolute Eosinophil Count 0.21 10^3/uL (0.0-0.7); Absolute Lymphocyte Count 0.88 10^3/uL (1.2-3.4); Absolute Neutrophil Count 2.27 10^3/uL (1.2-6.7); Eosinophils % 5.2; HCT 39.2 % (36.0-46.0); HGB 12.9 g/dL (11.2-15.7); Immature Grans % 0.7; Lymphocytes % 21.8; MCH 29.6 pg (27.0-33.0); MCHC 32.9 % (32.0-36.0); MCV 90 fL (80-95); MPV 9.9 fL (8.0-11.0); Monocytes % 14.9; Neutrophils % 56.4; Platelet Count 201 10^3/uL (130-400); RBC 4.36 10^6/uL (3.93-5.22); RDW 13.9 % (11.7-14.6); RDW-SD 45.6 fL; WBC 4.03 10^3/uL (4.4-10.8)
[2023-08-26 12:45] LABS: ALT 28 U/L (14-59); AST 27 U/L (15-37); Albumin 3.6 g/dL (3.4-5.0); Alkaline Phosphatase 62 U/L (46-116); Anion Gap 9.8 mmol/L (3-11); BUN 21 mg/dL (7-18); Bilirubin, Total 0.4 mg/dL (0.2-1.0); CO2 26.2 mmol/L (21.0-32.0); CREATININE 0.7 mg/dL (0.55-1.02); Calcium 9.6 mg/dL (8.5-10.1); Chloride 105 mmol/L (98-107); Estimated GFR 87.37 (mL/min/1.73m2); Glucose 102 mg/dL (74-106); Potassium 3.9 mmol/L (3.5-5.1); Sodium 141 mmol/L (136-145); Troponin I < 50 ng/L (<or=60)
--- NOTE | 2023-08-26 12:55 | W.ED.GENAD ---
Discharge Plan Disposition Patient Disposition: Admit to [facility] Condition: Improving Discharge Details Chief Complaint: CVA/TIA Clinical Impression: Right-sided cerebrovascular accident (CVA) Primary Care Provider: Jennifer Savage ED Provider: Familia Ordonez Home Meds and New Rx's Prescriptions: No Action turmeric 400 mg capsule 400 mg PO DAILY Lumigan 0.01 % drops 1 drp ophthalmic (eye) DAILY losartan 100 mg tablet 100 mg PO DAILY Qty: 90 4RF loratadine 10 mg tablet 5 mg PO DAILY PRN (Reason: allergy symptoms) multivitamin [Daily Vitamin] 1 EACH tablet 1 tab PO DAILY cholecalciferol (vitamin D3) 1,000 UNIT capsule 2 cap PO DAILY omega-3 fatty acids-fish oil 1 EACH capsule 1 cap PO DAILY Probiotic 1 EACH capsule 1 ea PO DAILY nitroglycerin 0.4 mg tablet, sublingual 0.4 mg Sublingual Q5 HR PRN Qty: 25 0RF Rx Instructions: TAKE EVERY 5 MIN PRN FOR CHEST PAIN epinephrine [EpiPen 2-Jesus] 0.3 mg/0.3 mL auto-injector 0.3 mg IJ DIRECTED PRN (Reason: anaphylaxis) Qty: 1 0RF naproxen 250 mg tablet 250 - 500 mg PO BID PRNQty: 40 0RF Rx Instructions: take with a meal Medical Decision Making 82-year-old female with a past medical history of bilateral shoulder repair, very distant tobacco use, Takotsubo's cardiomyopathy in 2017, polymyalgia rheumatica, reactive airway disease, who presents today for evaluation of left-sided weakness. Patient states that when she went to bed last night at around 9 to 10 PM she had no deficits and was feeling fine. She woke up at 4 AM and had notable weakness in her left upper and left lower extremity. The symptoms persisted throughout the day with some waxing and waning of severity. She eventually came to the ER at noon for further assessment and evaluation. She denies any headache, chest pain, falls, trauma, numbness, tingling, vomiting or diarrhea. She denies any history of stroke in the past. She denies any visual changes or difficulty speaking. No other complaints at this time. Exam demonstrates weakness in the left upper and left lower extremity, with dysdiadochokinesia and dysmetria. Patient demonstrates excellent plantar dorsiflexion of the left foot. Weakness is a strong 4 out of 5 versus 5 out of 5 on the left upper and lower extremity, it is very mild but present. No other focal deficits otherwise. Differential includes stroke secondary to hemorrhage or ischemic etiology. Patient did receive her COVID shot in her left shoulder 4 days ago, but had no symptoms prior to this. Patient is out of the window for therapeutic tPA. We will get a CT scan to evaluate for bleed or massive stroke. Will monitor closely and reassess. Currently there is no availability for CTA secondary to pump malfunction/broken. 2:[address] scan negative for evidence of bleed or massive stroke. Contacted [facility] and discussed the case with Dr. Vu of neurology, he does agree with need for MRA. MRI is now currently available. We will get an MRA at 3:00 of the brain and neck. On reassessment the patient's symptoms have also notably improved. While they have been stagnant for the previous 6 to 8 hours, they now have demonstrated notable improvement. We will continue to monitor closely. We did discuss antiplatelet therapy versus heparin, and neurology does recommend antiplatelets at this time. We will load with Plavix and give aspirin. 4:49 PM Laboratory work-up demonstrates no white count bandemia or left shift. Electrolytes stable. Troponin normal. MRI/MRA of the head neck does show motion artifact for the neck, however MRI of the head is appropriate, and does show evidence of small acute infarct in the right stanley radiata in the right insular cortex. On reassessment of the patient's symptoms have now completely resolved, which is slightly atypical with the timing. She has received Plavix and aspirin. Blood pressure is moderately elevated at 190. With the patient's risk factors, symptomatology, evidence of stroke, I do feel that admission for potential carotid ultrasound without motion artifact, as well as echo would be reasonable for her current scenario. Patient agrees. Daughter is at bedside. Discussed the case with the hospitalist Dr. Bailey, he agrees with the assessment and plan. I have extensively reviewed the treatment plan with the patient. I have addressed all patient concerns at this time. I have also discussed the plan with the admitting physician and they agree with the current assessment and plan and have agreed to assume responsibility for the patient. All parties demonstrate verbal understanding and agreement with our assessment and plan at this time. The documentation in this chart was dictated using Dragon dictation software. Please excuse any dictation errors. FINDINGS: VENTRICLES AND EXTRA AXIAL SPACES: Normal in size and morphology for the patient's age. MIDLINE SHIFT: None. CEREBRAL PARENCHYMA: There are areas of hyperintense signal seen on the diffusion-weighted images in the right stanley radiata and along the right insular cortex. There is subtle decreased attenuation on the ADC images most suggestive of an acute infarct. There are areas of increased signal on the T2 and FLAIR images in the white matter consistent with small vessel ischemic disease. HEMORRHAGE: None. BRAINSTEM/CEREBELLUM: Normal. CALVARIUM: Normal. VISUALIZED PARANASAL SINUSES/MASTOIDS:Clear. [place]: Normal flow void. PITUITARY GLAND: Unremarkable. OTHER FINDINGS: None. IMPRESSION: Findings suggestive of acute infarcts involving the right stanley radiata and the right insular cortex. FINDINGS: The examination is limited due to patient motion artifact. Common Carotid: Right: No dissection, occlusion or significant stenosis. Left: No dissection, occlusion or significant stenosis. External Carotid: Right: No evidence of occlusion or significant stenosis. Left: No evidence of occlusion or significant stenosis. Internal Carotid: Right: No dissection, occlusion or significant stenosis. Left: No dissection, occlusion or significant stenosis. Vertebral Artery: Right: No occlusion or significant stenosis. Left: No occlusion or significant stenosis. IMPRESSION: Within the limits of the examination, secondary to patient motion artifact, no obvious occlusion or significant stenosis is seen. FINDINGS: Carotid Arteries: No aneurysm, occlusion or significant stenosis. Anterior Cerebral Arteries: Right: No aneurysm, occlusion or significant stenosis. Left: No aneurysm, occlusion or significant stenosis. Middle Cerebral Arteries: Right: No aneurysm, occlusion or significant stenosis. Left: No aneurysm, occlusion or significant stenosis. Posterior Cerebral Arteries: Both posterior cerebral arteries arise from the posterior communicating arteries which is a normal variant. Right: No aneurysm, occlusion or significant stenosis. Left: No aneurysm, occlusion or significant stenosis. Vertebral Arteries: Right: No aneurysm, occlusion or significant stenosis. Left: No aneurysm, occlusion or significant stenosis. Basilar Artery: No aneurysm, occlusion or significant stenosis. IMPRESSION: 1. Normal MRA examination of the [place]. 2. Findings were discussed with Dr. Ordonez at 4:30 p.m. on 08/26/2023. HPI General Date/Time Provider Initiated Documentation: 08/26/23 11:48. HPI Narrative: 82-year-old female with a past medical history of bilateral shoulder repair, very distant tobacco use, Takotsubo's cardiomyopathy in 2017, polymyalgia rheumatica, reactive airway disease, who presents today for evaluation of left-sided weakness. Patient states that when she went to bed last night at around 9 to 10 PM she had no deficits and was feeling fine. She woke up at 4 AM and had notable weakness in her left upper and left lower extremity. The symptoms persisted throughout the day with some waxing and waning of severity. She eventually came to the ER at noon for further assessment and evaluation. She denies any headache, chest pain, falls, trauma, numbness, tingling, vomiting or diarrhea. She denies any history of stroke in the past. She denies any visual changes or difficulty speaking. No other complaints at this time. Related Data Home Medications Medication Instructions Recorded Confirmed cholecalciferol (vitamin D3) 25 2 cap PO DAILY 01/26/13 08/26/23 mcg (1,000 unit) capsule multivitamin (Daily Vitamin tablet) 1 tab PO DAILY 01/26/13 08/26/23 omega-3 fatty acids-fish oil 300 1 cap PO DAILY 01/26/13 08/26/23 mg-1,000 mg capsule Lactobacillus acidophilus 10 1 ea PO DAILY 07/07/13 08/26/23 billion cell capsule (Probiotic) nitroglycerin 0.4 mg sublingual 0.4 mg sublingual Q5 HR PRN #25 08/30/21 08/26/23 tablet tabs loratadine 10 mg tablet 5 mg PO DAILY PRN allergy symptoms 03/19/22 08/26/23 turmeric 400 mg capsule 400 mg PO DAILY 05/26/22 08/26/23 losartan 100 mg tablet 100 mg PO DAILY #90 tab-caps 02/12/23 08/26/23 naproxen 250 mg tablet 250 - 500 mg (1 - 2 x 250 mg) PO 03/13/23 08/26/23 BID PRN #40 tabs epinephrine 0.3 mg/0.3 mL 0.3 mg (0.3 mL) IJ DIRECTED PRN 06/10/23 08/26/23 injection, auto-injector (EpiPen anaphylaxis ##1 2-Jesus) bimatoprost 0.01 % eye drops 1 drp ophthalmic (eye) DAILY 06/30/23 08/26/23 ([place]) Previous Rx's Medication Instructions Recorded nitroglycerin 0.4 mg sublingual 0.4 mg sublingual Q5 HR PRN #25 08/30/21 tablet tabs losartan 100 mg tablet 100 mg PO DAILY #90 tab-caps 02/12/23 naproxen 250 mg tablet 250 - 500 mg (1 - 2 x 250 mg) PO 03/13/23 BID PRN #40 tabs epinephrine 0.3 mg/0.3 mL 0.3 mg (0.3 mL) IJ DIRECTED PRN 06/10/23 injection, auto-injector (EpiPen anaphylaxis ##1 2-Jesus) Allergies Allergy/AdvReac Type Severity Reaction Status Date / Time Iodinated Contrast Media Allergy Severe Anaphylaxis Verified 08/26/23 12:11 [Iodinated Contrast Media - Oral and] pneumococcal 23-valent Allergy Severe Verified 08/26/23 12:11 polysacchari [From Pneumovax ] venom-wasp Allergy Severe Anaphylaxis Verified 08/26/23 12:11 erythromycin base Allergy Intermediate Rash Verified 08/26/23 12:11 cephalexin Allergy Feel Verified 08/26/23 12:11 funny- Scalp on head is rising up lisinopril AdvReac Cough Verified 08/26/23 12:11 Penicillins AdvReac Verified 08/26/23 12:11 Tetracyclines AdvReac N/V Verified 08/26/23 12:11 General Stated Complaint: CVA/TIA SYED: 2 Review of Systems All systems reviewed & are unremarkable except as noted in HPI and below PFSH All Active Problems (Updated 08/26/23 @ 16:51 by Familia Ordonez DO) Right-sided cerebrovascular accident (CVA) (Acute) Reaction to insect bite (Acute) Polyneuropathy (Acute) Arthritis of right glenohumeral joint (Acute) Bilateral hearing loss due to cerumen impaction (Acute) Actinic keratosis (Chronic) Coronary artery spasm (Chronic 04/01/16) Essential hypertension (Chronic 07/07/13) Hip pain, left (Chronic 09/27/14) Lumbar facet arthropathy (Chronic 10/02/14) Sensorineural hearing loss, bilateral (Chronic 06/05/15) Tongue lesion (Chronic 09/03/17) Vaginal atrophy (Chronic 08/01/14) Diverticulosis large intestine w/o perforation or abscess w/o bleeding (Chronic) Colorectal polyp detected on colonoscopy (Chronic) 07/12/18 TUBULAR ADENOMA; DR. 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 NSTEMI (non-ST elevated myocardial infarction) 03/24/16; [facility] [place]. Per pt. states she did not have an [place], stress-induced takotsubo cardiomyopathy Diabetes mellitus Tailors bunion bilateral Shoulder pain, left Elev transaminase/LDH 06/27/94 Elevated LFT's; HEP C neg; ANTB. B POS (had immunization); Ferritin 223; NL transferrin index 4/98 U/S: prominenet L liver Lobe, ? Fatty infiltration; MRI neg; Dr. Carranza@ [facility] [place] Anxiety 08/20/09 hyperventilation Lipoma 08/20/09 LLE H/O retained foreign body fully removed 09/28/11 removal of foreign body-left thumb Elbow joint pain 01/25/13 Cerumen impaction 04/09/15 Tendonitis involving right hip abductors 02/15/16 Pain of right great toe 08/18/16 Abnormal glucose (08/28/15) Surgical History Status post appendectomy Status post tonsillectomy and adenoidectomy History of excision of lesion nevus;foot S/P tonsillectomy and adenoidectomy S/P appendectomy Tonsillectomy and adenoidectomy (~1950) THUMB SURGERY (02/16/12) REMOVAL OF F/B LEFT THUMB NEVUS REMOVAL FOOT Dilation and curettage Appendectomy (~1951) Family History Mother , AGE 71 Essential hypertension Asthma Lung fibrosis Lung cancer Father , AGE 72 Essential hypertension Heart disease [place] Myocardial infarction Sister Diabetes Depression Hyperlipidemia Asthma Heart disease Brother , age 55 Alcohol abuse Heart disease Stomach cancer Brother , Pneumonia/embolism age 59 Myocardial infarction Cancer Maternal Grandfather , age 75 Essential hypertension Heart disease Stroke Paternal Grandfather , age 65 Diabetes Heart disease Cancer Maternal Grandmother , age 59 Heart disease Paternal Grandmother , age 58 Cancer Diabetes Son No problems noted. Daughter No problems noted. Daughter Alcohol abuse Social History Smoking/Tobacco Use Status: Former Tobacco Use tobacco type: cigarettes Quit Date: 09/28/1967 Tobacco: How many years used: 5 Second Hand Exposure: Yes Smoking risk assessment performed?: Yes Alcohol Intake: current Alcohol Intake frequency: holidays/special occasions only Alcohol type: wine Drug use: Rarely Substance use type: marijuana Caregiver/Support person: No Household members: none Housing: house Communication Needs: None Do you need help understanding health information?: Never Pets and animals: No Sexually active: No Do you think of yourself as: straight/heterosexual Current gender identity: female What is your relationship status?: How often do you talk on the phone with friends or family?: twice per week How often do you get together with friends or relatives?: three or more times per week How often do you attend shinto or jewish services?: 4 or more times per year Do you belong to any clubs or organized social groups?: yes Panel score (0-1 are the most socially isolated patients): 3 What type of physical activity do you participate in: walking, aerobic and other Details: Ti Chi Duration: 30-45 minutes/day Frequency: daily Erika/Gnosticist: Judaism Special erika needs: No Seatbelt use: always Helmet use: Yes Helmet use: always Drive intox or ride w/intox starting gate driver: No Do you feel safe at home: Yes Do you feel safe in your relationship?: Yes Exam Narrative Exam Narrative: 1.Const: Well-nourished, Well-developed, appearing stated age 2.Eyes: PERRL, no conjunctival injection, and symmetrical lids. 3.ENT: Atraumatic external nose and ears. Moist MM. Neck: Symmetric, trachea midline, No thyromegaly. 4.CVS: +S1/S2, No murmurs or gallops. Peripheral pulses 2+ and equal in all extremities. Brisk capillary refill in all extremities. 5.RESP: Unlabored respiratory effort. Clear to auscultation bilaterally. No wheezes rales or rhonchi 6.GI: Soft, Nontender/Nondistended, No hepatosplenomegaly. No guarding or rebound. 7.MSK: Normocephalic/Atraumatic, Extremities w/o deformity or ttp No cyanosis or clubbing, Normal movement of all extremities 8.Skin: Warm, Dry. No rashes or lesions. 9.Neuro: mailing manager II-XII grossly intact. Sensation grossly intact. All 6 cardinal planes of vision are fully intact. No evidence of rotatory or vertical nystagmus. Sensation was intact bilaterally for all extremities. Patient was able to verbalize butter cup with no slurring, or miss pronunciation. Patient demonstrates mild dysdiadochokinesia and dysmetria for the left upper extremity. Difficulty using the left lower extremity for [id number] testing. 4-5 strength for the left upper and left lower extremity when compared to the right. Good dorsiflexion of the great toes bilaterally and normal equivalent plantarflexion bilaterally. NIH stroke score of 1 secondary to ataxia. 10.Psych: (AAO) x3. Appropriate mood and affect Course Vital Signs Vital signs: Vital Signs Pulse 87 08/26/23 11:53 Respiratory Rate 18 08/26/23 11:53 Blood Pressure 180/95 H 08/26/23 11:53 Temperature 36.6 C 08/26/23 12:08 Temperature Source Oral 08/26/23 12:08 Pulse 79 08/26/23 12:13 Pulse 82 08/26/23 12:20 Respiratory Rate 18 08/26/23 12:26 Respiratory Effort Normal 08/26/23 12:26 Respiratory Depth Normal 08/26/23 12:26 Respiratory Pattern Normal 08/26/23 12:26 Blood Pressure 166/76 H 08/26/23 12:13 Blood Pressure Mean 109 08/26/23 12:13 Pulse Oximetry 96 08/26/23 11:58 Oxygen Delivery Method Room Air 08/26/23 11:53 Oxygen Flow Rate 0 08/26/23 11:53 Pain Level 0 08/26/23 11:53 Lab/Test Results Lab/Test Results: Laboratory Tests Range/Units 08/26/23 12:22 WBC (4.4-10.8) 10^3/uL 4.03 L RBC (3.93-5.22) 10^6/uL 4.36 Hgb (11.2-15.7) g/dL 12.9 Hct (36.0-46.0) % 39.2 MCV (80-95) fL 90 MCH (27.0-33.0) pg 29.6 MCHC (32.0-36.0) % 32.9 RDW (11.7-14.6) % 13.9 Plt Count (130-400) 10^3/uL 201 MPV (8.0-11.0) fL 9.9 Immature Gran % 0.7 Neutrophils % 56.4 Lymphocytes % 21.8 Monocytes % 14.9 Eosinophils % 5.2 Basophils % 1.0 Nucleated RBC % (0.0-0.3) % 0.0 Absolute Neutrophils (1.2-6.7) 10^3/uL 2.27 Absolute Lymphocytes (1.2-3.4) 10^3/uL 0.88 L Absolute Monocytes (0.1-0.8) 10^3/uL 0.60 Absolute Eosinophils (0.0-0.7) 10^3/uL 0.21 Absolute Basophils (0.0-0.2) 10^3/uL 0.04 Sodium (136-145) mmol/L 141 Potassium (3.5-5.1) mmol/L 3.9 Chloride (98-107) mmol/L 105 Carbon Dioxide (21.0-32.0) mmol/L 26.2 Anion Gap (3-11) mmol/L 9.8 BUN (7-18) mg/dL 21 H Creatinine (0.55-1.02) mg/dL 0.7 Est GFR (CKD-EPI 2020) (mL/min/1.73m2) 87.37 Glucose (74-106) mg/dL 102 Calcium (8.5-10.1) mg/dL 9.6 Total Bilirubin (0.2-1.0) mg/dL 0.4 AST (15-37) U/L 27 ALT (14-59) U/L 28 Alkaline Phosphatase (46-116) U/L 62 Troponin I (<or=60) ng/L < 50 Total Protein (6.4-8.2) g/dL 7.0 Albumin (3.4-5.0) g/dL 3.6 Critical Care Time Critical Care Time Critical Care Time: Yes Total Critical Care Time: 45 Attestation: Upon my evaluation, this patient had a high probability of imminent or life-threatening deterioration, which required my direct attention, intervention, and personal management. I have personally provided 45 minutes of critical care time exclusive of time spent on separately billable procedures. Time includes review of laboratory data, radiology results, discussion with consultants, and monitoring for potential decompensation. Interventions were performed as documented.
--- NOTE | 2023-08-26 13:15 | DI.MRI_ITS ---
Exam(s) MR BRAIN WO EXAM: MR BRAIN WO CLINICAL HISTORY: left sided deficits, rule out stroke TECHNIQUE: Multiplanar multisequence MRI of the brain was performed. COMPARISON: No exams were available for comparison FINDINGS: VENTRICLES AND EXTRA AXIAL SPACES: Normal in size and morphology for the patient's age. MIDLINE SHIFT: None. CEREBRAL PARENCHYMA: There are areas of hyperintense signal seen on the diffusion-weighted images in the right stanley radiata and along the right insular cortex. There is subtle decreased attenuation o n the ADC images most suggestive of an acute infarct. There are areas of increased signal on the T2 and FLAIR images in the white matter consistent with small vessel ischemic disease. HEMORRHAGE: None. BRAINSTEM/CEREBELLUM: Normal. CALVARIUM: Normal. VISUALIZED PARANASAL SINUSES/MASTOIDS:Clear. [place]: Normal flow void. PITUITARY GLAND: Unremarkable. OTHER FINDINGS: None. IMPRESSION: Findings suggestive of acute infarcts involving the right stanley radiata and the right insular cortex . DATA REPOSITORY:
--- NOTE | 2023-08-26 13:15 | DI.MRI_ITS ---
Exam(s) MR ANGIO BRAIN WO CLINICAL HISTORY: left sided deficits, rule out stroke. TECHNIQUE: Multiplanar multisequence MRA of the brain was performed. COMPARISON: No exams were available for comparison FINDINGS: Carotid Arteries: No aneurysm, occlusion or significant stenosis. Anterior Cerebral Arteries: Right: No aneurysm, occlusion or significant stenosis. Left: No aneurysm, occlusion or significant stenosis. Middle Cerebral Arteries: Right: No aneurysm, occlusion or significant stenosis. Left: No aneurysm, occlusion or significant stenosis. Posterior Cerebral Arteries: Both posterior cerebral arteries arise from the posterior communicating arteries which is a normal variant. Right: No aneurysm, occlusion or significant stenosis. Left: No aneurysm, occlusion or significant stenosis. Vertebral Arteries: Right: No aneurysm, occlusion or significant stenosis. Left: No aneurysm, occlusion or significant stenosis. Basilar Artery: No aneurysm, occlusion or significant stenosis. IMPRESSION: 1. Normal MRA examination of the [place]. 2. Findings were discussed with Dr. Ordonez at 4:30 p.m. on 08/26/2023. DATA REPOSITORY:
--- NOTE | 2023-08-26 13:15 | DI.MRI_ITS ---
Exam(s) MR ANGIO NECK WO EXAM: MR ANGIO NECK WO CLINICAL HISTORY: left sided deficits, rule out stroke. TECHNIQUE: Multiplanar multisequence MRA of the Neck was performed. COMPARISON: No exams were available for comparison FINDINGS: The examination is limited due to patient motion artifact. Common Carotid: Right: No dissection, occlusion or significant stenosis. Left: No dissection, occlusion or significant stenosis. External Carotid: Right: No evidence of occlusion or significant stenosis. Left: No evidence of occlusion or significant stenosis. Internal Carotid: Right: No dissection, occlusion or significant stenosis. Left: No dissection, occlusion or significant stenosis. Vertebral Artery: Right: No occlusion or significant stenosis. Left: No occlusion or significant stenosis. IMPRESSION: Within the limits of the examination, secondary to patient motion artifact, no obvious occlusion or s ignificant stenosis is seen. DATA REPOSITORY:
[2023-08-26] MEDS: Clopidogrel 300 MG TAB PO (13:37)
[2023-08-26] MEDS: Aspirin 325 MG TAB PO (13:37)
[2023-08-26] MEDS: Loratidine 10 MG TAB 20 MG PO (14:16)
[2023-08-26] MEDS: methylPREDNISolone SUCC 125 MG VIAL IVP (14:16)
[2023-08-26] MEDS: Famotidine 20 MG/2 ML VIAL IVP (14:16)
--- NOTE | 2023-08-26 16:22 | DI.VRAD_ITS ---
PROCEDURE INFORMATION: Exam: MRA Head Without and With Contrast; Arteriography Exam date and time: 08/26/2023 3:27 PM Age: 82 years old Clinical indication: Other: Left side deficit TECHNIQUE: Imaging protocol: Magnetic resonance angiography head without and with contrast. Angiographic sequences such as Clts-es-ycyeto (TOF) or Time-resolved contrast techniques were performed. Exam focused on the arteries. COMPARISON: CT HEAD WO 08/26/2023 12:26 PM FINDINGS: ANTERIOR CIRCULATION: Right internal carotid artery: Intracranial segment is patent with no significant stenosis. No aneurysm. Right middle cerebral artery: No occlusion or significant stenosis. No aneurysm. Right anterior cerebral artery: No occlusion or significant stenosis. No aneurysm. Left internal carotid artery: Intracranial segment is patent with no significant stenosis. No aneurysm. Left middle cerebral artery: No occlusion or significant stenosis. No aneurysm. Left anterior cerebral artery: No occlusion or significant stenosis. No aneurysm. POSTERIOR CIRCULATION: Right vertebral artery: No occlusion or significant stenosis. No aneurysm. Left vertebral artery: No occlusion or significant stenosis. No aneurysm. Basilar artery: No occlusion or significant stenosis. No aneurysm. Right posterior cerebral artery: No occlusion or significant stenosis. No aneurysm. Left posterior cerebral artery: No occlusion or significant stenosis. No aneurysm. IMPRESSION: No stenosis or occlusion. Dictated and Authenticated by: Yobany Shepard MD. Ordering:RINA Barbosa MD
--- NOTE | 2023-08-26 17:10 | HPE_ITS ---
Date of service: 08/26/23 Time of Service: 17:11 Assessment and Plan Assessment and plan (1) Right-sided cerebrovascular accident (CVA): Status: Acute Assessment and plan: - Patient presented with left upper and lower extremity weakness -This was subsequently confirmed to be a CVA as seen on the brain MRI -Brain MRI MRI and neck negative -Noncon head CT also negative -Patient was given 325 mg aspirin in the emergency department [place] and recommended initiation of Plavix which will be continued daily -Follow-up cholesterol, TSH, hemoglobin A1c -Appreciate PT OT consultation -Follow-up and echocardiogram with bubble study -Follow-up carotid artery ultrasound (2) Essential hypertension: Status: Chronic Assessment and plan: - Continue patient's home regimen of 100 mg losartan daily -Allow for permissive hypertension to systolic up to 180 for first 24 hours -As needed hydralazine for systolic greater than 180, diastolic greater than 110 -If patient remains persistently hypertensive 24 hours, will add additional antihypertensive (3) Non-ST elevation (NSTEMI) myocardial infarction: Status: Resolved Assessment and plan: - Had previously been on aspirin therapy which she discontinued a year ago -Continue aspirin as noted above History of Present Illness History of Present Illness Chief Complaint: Left-sided weakness Narrative: 82-year-old female with past medical history taxable cardiomyopathy in 2017, polymyalgia rheumatica, reactive airway disease presents emergency department today with left-sided weakness. Patient said around 4 AM she woke up and noted that she had weakness in her left upper and lower extremities. The symptoms persisted throughout the day with notable waxing and waning of severity which prompted her to come to the emergency department in the afternoon for further evaluation. She denied any headache, loss of vision, chest pain, fall/head trauma, shortness of breath. In the emergency department the patient was noted as being hypertensive with blood pressures 210/100. CBC, CMP and EKG were within normal limits and troponin was negative. Patient did have notable left-sided upper and lower extremity weakness. Noncon head CT was unremarkable, subsequent brain MRI and angio head and neck showed 20 suggestive of acute infarct involving the right stanley radiata and right insular cortex. Patient was given 325 mg aspirin and [facility] who did not recommend initiation of Plavix. However, patient suddenly had complete resolution of her symptoms. However, given MRI findings emergency room physician paged hospitalist for admission for patient with right-sided CVA. Review of Systems All systems reviewed & are unremarkable except as noted in HPI and below PFSH All Active Problems (Updated 08/26/23 @ 16:51 by Familia Ordonez DO) Right-sided cerebrovascular accident (CVA) (Acute) Reaction to insect bite (Acute) Polyneuropathy (Acute) Arthritis of right glenohumeral joint (Acute) Bilateral hearing loss due to cerumen impaction (Acute) Actinic keratosis (Chronic) Coronary artery spasm (Chronic 04/01/16) Essential hypertension (Chronic 07/07/13) Hip pain, left (Chronic 09/27/14) Lumbar facet arthropathy (Chronic 10/02/14) Sensorineural hearing loss, bilateral (Chronic 06/05/15) Tongue lesion (Chronic 09/03/17) Vaginal atrophy (Chronic 08/01/14) Diverticulosis large intestine w/o perforation or abscess w/o bleeding (Chronic) Colorectal polyp detected on colonoscopy (Chronic) 07/12/18 TUBULAR ADENOMA; DR. 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 [place]STEMI (non-ST elevated myocardial infarction) [place]24[place]16[place] [facility] Per pt. states she did not have an [place], stress-induced takotsubo cardiomyopathy Diabetes mellitus Tailors bunion bilateral Shoulder pain, left Elev transaminase/LDH 06/27/94 Elevated LFT's; HEP C neg; ANTB. B POS (had immunization); Ferritin 223; NL transferrin index U/S: prominenet L liver Lobe, ? Fatty infiltration; MRI neg; Dr. Carranza@ [facility] Anxiety 08/20/09 hyperventilation Lipoma 08/20/09 LLE H/O retained foreign body fully removed 09/28/11 removal of foreign body-left thumb Elbow joint pain 01/25/13 Cerumen impaction 04/09/15 Tendonitis involving right hip abductors 02/15/16 Pain of right great toe 08/18/16 Abnormal glucose (08/28/15) Surgical History Status post appendectomy Status post tonsillectomy and adenoidectomy History of excision of lesion nevus;foot S/P tonsillectomy and adenoidectomy S/P appendectomy Tonsillectomy and adenoidectomy (~1950) THUMB SURGERY (02/16/12) REMOVAL OF F/B LEFT THUMB NEVUS REMOVAL FOOT Dilation and curettage Appendectomy (~1951) Family History Mother , AGE 71 Essential hypertension Asthma Lung fibrosis Lung cancer Father , AGE 72 Essential hypertension Heart disease [place] Myocardial infarction Sister Diabetes Depression Hyperlipidemia Asthma Heart disease Brother , age 55 Alcohol abuse Heart disease Stomach cancer Brother , Pneumonia/embolism age 59 Myocardial infarction Cancer Maternal Grandfather , age 75 Essential hypertension Heart disease Stroke Paternal Grandfather , age 65 Diabetes Heart disease Cancer Maternal Grandmother , age 59 Heart disease Paternal Grandmother , age 58 Cancer Diabetes Son No problems noted. Daughter No problems noted. Daughter Alcohol abuse Social History Smoking/Tobacco Use Status: Former Tobacco Use tobacco type: cigarettes Quit Date: 09/28/1967 Tobacco: How many years used: 5 Second Hand Exposure: Yes Smoking risk assessment performed?: Yes Alcohol Intake: current Alcohol Intake frequency: holidays/special occasions only Alcohol type: wine Drug use: Rarely Substance use type: marijuana Caregiver/Support person: No Household members: none Housing: house Communication Needs: None Do you need help understanding health information?: Never Pets and animals: No Sexually active: No Do you think of yourself as: straight/heterosexual Current gender identity: female What is your relationship status?: How often do you talk on the phone with friends or family?: twice per week How often do you get together with friends or relatives?: three or more times per week How often do you attend tenriism or uatsdin services?: 4 or more times per year Do you belong to any clubs or organized social groups?: yes Panel score (0-1 are the most socially isolated patients): 3 What type of physical activity do you participate in: walking, aerobic and other Details: Ti Chi Duration: 30-45 minutes/day Frequency: daily Erika/Roman Catholic: Yazidism Special erika needs: No Seatbelt use: always Helmet use: Yes Helmet use: always 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 Do you feel safe at home: Yes Do you feel safe in your relationship?: Yes Meds Allergies and Home Medications Allergies Allergy/AdvReac Type Severity Reaction Status Date / Time Iodinated Contrast Media Allergy Severe Anaphylaxis Verified 08/26/23 12:11 [Iodinated Contrast Media - Oral and] pneumococcal 23-valent Allergy Severe Verified 08/26/23 12:11 polysacchari [From Pneumovax 23] venom-wasp Allergy Severe Anaphylaxis Verified 08/26/23 12:11 erythromycin base Allergy Intermediate Rash Verified 08/26/23 12:11 cephalexin Allergy Feel Verified 08/26/23 12:11 funny- Scalp on head is rising up lisinopril AdvReac Cough Verified 08/26/23 12:11 Penicillins AdvReac Verified 08/26/23 12:11 Tetracyclines AdvReac N/V Verified 08/26/23 12:11 Home Medications Medication Instructions Recorded Confirmed Type cholecalciferol (vitamin D3) 25 2 cap PO DAILY 01/26/13 08/26/23 History mcg (1,000 unit) capsule multivitamin (Daily Vitamin tablet) 1 tab PO DAILY 01/26/13 08/26/23 History omega-3 fatty acids-fish oil 300 1 cap PO DAILY 01/26/13 08/26/23 History mg-1,000 mg capsule Lactobacillus acidophilus 10 1 ea PO DAILY 07/07/13 08/26/23 History billion cell capsule (Probiotic) nitroglycerin 0.4 mg sublingual 0.4 mg sublingual Q5 HR PRN #25 08/30/21 08/26/23 Rx tablet tabs loratadine 10 mg tablet 5 mg PO DAILY PRN allergy symptoms 03/19/22 08/26/23 History turmeric 400 mg capsule 400 mg PO DAILY 05/26/22 08/26/23 History losartan 100 mg tablet 100 mg PO DAILY #90 tab-caps 02/12/23 08/26/23 Rx naproxen 250 mg tablet 250 - 500 mg (1 - 2 x 250 mg) PO 03/13/23 08/26/23 Rx BID PRN #40 tabs epinephrine 0.3 mg/0.3 mL 0.3 mg (0.3 mL) IJ DIRECTED PRN 06/10/23 08/26/23 Rx injection, auto-injector (EpiPen anaphylaxis ##1 2-Jesus) bimatoprost 0.01 % eye drops 1 drp ophthalmic (eye) DAILY 06/30/23 08/26/23 History ([place]) Exam Narrative Exam Narrative: Well-appearing older female sitting up on the edge of the bed in no acute distress, ANO x4, heart regular rate rhythm, lungs clear to auscultation bilaterally, abdomen soft, nontender nondistended, cranial nerves II through XII intact, normal sensation and strength in bilateral upper and lower extremities Results Labs 08/26/23 12:22 08/26/23 12:22 Labs: Laboratory Results - last 24 hr 08/26/23 12:22 WBC 4.03 L RBC 4.36 Hgb 12.9 Hct 39.2 MCV 90 MCH 29.6 MCHC 32.9 RDW 13.9 Plt Count 201 MPV 9.9 Immature Gran % 0.7 Neutrophils % 56.4 Lymphocytes % 21.8 Monocytes % 14.9 Eosinophils % 5.2 Basophils % 1.0 Nucleated RBC % 0.0 Absolute Neutrophils 2.27 Absolute Lymphocytes 0.88 L Absolute Monocytes 0.60 Absolute Eosinophils 0.21 Absolute Basophils 0.04 Sodium 141 Potassium 3.9 Chloride 105 Carbon Dioxide 26.2 Anion Gap 9.8 BUN 21 H Creatinine 0.7 Est GFR (CKD-EPI 2020) 87.37 Glucose 102 Calcium 9.6 Total Bilirubin 0.4 AST 27 ALT 28 Alkaline Phosphatase 62 Troponin I < 50 Total Protein 7.0 Albumin 3.6 Last Vital Signs Temp 97.8 F 08/26/23 12:08 Pulse 82 08/26/23 16:21 Resp 23 08/26/23 16:50 BP 200/86 H 08/26/23 16:21 Pulse Ox 98 08/26/23 16:50 Time Spent Time spent with Patient: >75 minutes Time was spent: preparing to see the patient(eg.review tests), obtaining and/or reviewing separately otained hiistory, ordering medications,tests, procedures, referring, communicating with other health career consultant, indepentently interpreting results, counseling the patient and care coordination
[2023-08-26] MEDS: Naproxen 250 MG TAB PO (22:29)
[2023-08-26] MEDS: Acetaminophen 325 MG TAB PO (22:29)
[2023-08-26 22:32] LABS: Hemoglobin A1C 5.8 % (<5.7)
[2023-08-27 00:32] VITALS: BP 120/76; PULSE 80; RESP 18; TEMP 35.5; O2SAT 95
[2023-08-27 05:06] VITALS: BP 160/90; PULSE 82; RESP 18; TEMP 35.7; O2SAT 98
[2023-08-27 06:27] LABS: HCT 37.7 % (36.0-46.0); HGB 12.7 g/dL (11.2-15.7); MCH 30.4 pg (27.0-33.0); MCHC 33.7 % (32.0-36.0); MCV 90 fL (80-95); MPV 9.8 fL (8.0-11.0); Platelet Count 228 10^3/uL (130-400); RBC 4.18 10^6/uL (3.93-5.22); RDW-SD 46.6 fL; WBC 6.02 10^3/uL (4.4-10.8)
[2023-08-27 06:54] LABS: Anion Gap 11.6 mmol/L (3-11); BUN 25 mg/dL (7-18); CO2 23.4 mmol/L (21.0-32.0); CREATININE 0.8 mg/dL (0.55-1.02); Calculated LDL 53 mg/dL (<100); Chloride 107 mmol/L (98-107); Cholesterol 146 mg/dL (<200); Estimated GFR 74.44 (mL/min/1.73m2); Glucose 205 mg/dL (74-106); HDL Cholesterol 64 mg/dL (40-60); Magnesium 1.7 mg/dL (1.8-2.4); Potassium 3.7 mmol/L (3.5-5.1); Sodium 142 mmol/L (136-145); TSH 0.48 uIU/mL (0.36-3.74); Triglyceride 145 mg/dL (<150)
[2023-08-27 08:03] VITALS: BP 158/80; PULSE 84; RESP 15; TEMP 36.3; O2SAT 97
--- NOTE | 2023-08-27 08:33 | PDOC.CMIN ---
Date of service: 08/27/23 Time of Service: 08:33 Care Management Initial Assmt Initial Assessment REASON FOR HOSPITALIZATION:: CVA PREVIOUS FUNCTIONAL STATUS/SOCIAL/FAMILY SUPPORTS:: Pam lives in [place] on [address] [facility]. ADVANCE DIRECTIVES:: On file. Evelyn Ozuna listed as [facility]. Kelly Ozuna alternate Has patient been provided with info about the portal/API?: Yes Did the patient sign up for the portal?: Yes CODE STATUS:: Full Code INSURANCE COVERAGE / FINANCIAL ISSUES:: BC/BS Medicare Advantage PRIMARY CARE PHYSICIAN:: Jennifer Savage POTENTIAL DISCHARGE NEEDS:: follow up with PCP and plan of care PATIENT/FAMILY EDUCATION NEEDS:: Review of discharge instructions, limitations, follow up plan, discuss Ask Me Three TRANSPORTATION:: via private vehicle with family PLAN:: Anticipate Pam will be discharged home with no new services. She will follow up with community providers and plan of care and transport with family. CM will follow and continue to assess for discharge needs. PFSH All Active Problems (Updated 08/26/23 @ 16:51 by Familia Ordonez DO) Right-sided cerebrovascular accident (CVA) (Acute) Reaction to insect bite (Acute) Polyneuropathy (Acute) Arthritis of right glenohumeral joint (Acute) Bilateral hearing loss due to cerumen impaction (Acute) Actinic keratosis (Chronic) Coronary artery spasm (Chronic 04/01/16) Essential hypertension (Chronic 07/07/13) Hip pain, left (Chronic 09/27/14) Lumbar facet arthropathy (Chronic 10/02/14) Sensorineural hearing loss, bilateral (Chronic 06/05/15) Tongue lesion (Chronic 09/03/17) Vaginal atrophy (Chronic 08/01/14) Diverticulosis large intestine w/o perforation or abscess w/o bleeding (Chronic) Colorectal polyp detected on colonoscopy (Chronic) 07/12/18 TUBULAR ADENOMA; DR. 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 NSTEMI (non-ST elevated myocardial infarction) 03/24/16; [facility] [place]. Per pt. states she did not have an [place], stress-induced takotsubo cardiomyopathy Diabetes mellitus Tailors bunion bilateral Shoulder pain, left Elev transaminase/LDH 06/27/94 Elevated LFT's; HEP C neg; ANTB. B POS (had immunization); Ferritin 223; NL transferrin index 4/98 U/S: prominenet L liver Lobe, ? Fatty infiltration; MRI neg; Dr. Carranza@ [facility] [place] Anxiety 08/20/09 hyperventilation Lipoma 08/20/09 LLE H/O retained foreign body fully removed 09/28/11 removal of foreign body-left thumb Elbow joint pain 01/25/13 Cerumen impaction 04/09/15 Tendonitis involving right hip abductors 02/15/16 Pain of right great toe 08/18/16 Abnormal glucose (08/28/15) Surgical History Status post appendectomy Status post tonsillectomy and adenoidectomy History of excision of lesion nevus;foot S/P tonsillectomy and adenoidectomy S/P appendectomy Tonsillectomy and adenoidectomy (~1949) THUMB SURGERY (02/16/12) REMOVAL OF F/B LEFT THUMB NEVUS REMOVAL FOOT Dilation and curettage Appendectomy (~1951) Family History Mother , AGE 71 Essential hypertension Asthma Lung fibrosis Lung cancer Father , AGE 72 Essential hypertension Heart disease [place] Myocardial infarction Sister Diabetes Depression Hyperlipidemia Asthma Heart disease Brother , age 55 Alcohol abuse Heart disease Stomach cancer Brother , Pneumonia/embolism age 59 Myocardial infarction Cancer Maternal Grandfather , age 75 Essential hypertension Heart disease Stroke Paternal Grandfather , age 65 Diabetes Heart disease Cancer Maternal Grandmother , age 59 Heart disease Paternal Grandmother , age 58 Cancer Diabetes Son No problems noted. Daughter No problems noted. Daughter Alcohol abuse Social History Smoking/Tobacco Use Status: Former Tobacco Use tobacco type: cigarettes Quit Date: 09/28/1967 Tobacco: How many years used: 5 Second Hand Exposure: Yes Smoking risk assessment performed?: Yes Alcohol Intake: current Alcohol Intake frequency: holidays/special occasions only Alcohol type: wine Drug use: Rarely Substance use type: marijuana Caregiver/Support person: No Household members: none Housing: house Communication Needs: None Do you need help understanding health information?: Never Pets and animals: No Sexually active: No Do you think of yourself as: straight/heterosexual Current gender identity: female What is your relationship status?: How often do you talk on the phone with friends or family?: twice per week How often do you get together with friends or relatives?: three or more times per week How often do you attend cheondoism or samaritan services?: 4 or more times per year Do you belong to any clubs or organized social groups?: yes Panel score (0-1 are the most socially isolated patients): 3 What type of physical activity do you participate in: walking, aerobic and other Details: Ti Chi Duration: 30-45 minutes/day Frequency: daily Erika/Faith: Christianity Special erika needs: No Seatbelt use: always Helmet use: Yes Helmet use: always 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
[2023-08-27] MEDS: Losartan 50 MG TAB 100 MG PO (09:00)
[2023-08-27] MEDS: Aspirin E.C. 81 MG TABEC PO (09:00)
[2023-08-27] MEDS: Docusate Sodium 100 MG CAP PO (09:16)
--- NOTE | 2023-08-27 10:17 | OTIE_ITS ---
Occupational Therapy Notes Inpatient Occupational Therapy Evaluation Date: 08/27/23 Referring Doctor: Albert Bailey OT Orders/Precautions: Non urgent, fall, standard, full PATIENT PROFILE/ADMITTING DIAGNOSIS: Pt is an 82 year old female who was admitted with a dx of (R) sided CVA, polyneuropathy, actinic keratosis. Past Medical History: All Active Problems (Updated 08/26/23 @ 16:51 by Familia Ordonez DO) Right-sided cerebrovascular accident (CVA) (Acute) Reaction to insect bite (Acute) Polyneuropathy (Acute) Arthritis of right glenohumeral joint (Acute) Bilateral hearing loss due to cerumen impaction (Acute) Actinic keratosis (Chronic) Coronary artery spasm (Chronic 04/01/16) Essential hypertension (Chronic 07/07/13) Hip pain, left (Chronic 09/27/14) Lumbar facet arthropathy (Chronic 10/02/14) Sensorineural hearing loss, bilateral (Chronic 06/05/15) Tongue lesion (Chronic 09/03/17) Vaginal atrophy (Chronic 08/01/14) Diverticulosis large intestine w/o perforation or abscess w/o bleeding (Chronic) Colorectal polyp detected on colonoscopy (Chronic) 07/12/18 TUBULAR ADENOMA; DR. Felipe of right great toe (Chronic 08/18/16) Lipoma (Chronic 08/20/09) Anxiety (Chronic 08/20/09) Wheezing (Acute) Reactive airway disease (Acute) Shortness of breath (Acute) Neck pain (Acute) Arthralgia (Acute) Polymyalgia rheumatica (Acute) Vitamin D intoxication (Acute) Arthritis of left shoulder region (Acute) s/p left reverse total shoulder arthroplasty 03/13/23Arthritis of right shoulder region (Acute) Loose body in shoulder joint (Acute) Community acquired pneumonia (Acute) Cervical myelopathy (Acute) Pre-op chest exam (Acute) Medical History Takotsubo cardiomyopathy 2016-stressed induced lost 3 family memebers close together, states has been in very good health sinceImpacted cerumen of both ears Shingles Diabetes mellitus Elbow joint pain (01/25/13) Elevation of level of transaminase and lactic acid dehydrogenase (LDH) (06/27/94) Tailor's bunion Low back pain unspecified laterality, with sciatica presence unspecified.NSTEMI (non-ST elevated myocardial infarction) 03/24/16; [facility] [place]. Per pt. states she did not have an NM, stress-induced takotsubo cardiomyopathyDiabetes mellitus Tailors bunion bilateralShoulder pain, left Elev transaminase/LDH 06/27/94 Elevated LFT's; HEP C neg; ANTB. B POS (had immunization); Ferritin 223; NL transferrin index U/S: prominenet L liver Lobe, ? Fatty infiltration; MRI neg; [facility] [place] 08/[place]09 hyperventilationLipoma 08/20/09 LLEH/O retained foreign body fully removed 09/28/11 removal of foreign body-left thumbElbow joint pain 01/25/13erumen impaction 04/09/15Tendonitis involving right hip abductors 02/15/16Pain of right great toe 08/18/16Abnormal glucose (08/28/15) Surgical History Status post appendectomy Status post tonsillectomy and adenoidectomy History of excision of lesion nevus;footS/P tonsillectomy and adenoidectomy S/P appendectomy Tonsillectomy and adenoidectomy (~1949) THUMB SURGERY (02/16/12) REMOVAL OF F/B LEFT THUMBNEVUS REMOVAL FOOTDilation and curettage Appendectomy (~1951) Social History/Home Situation: Pt states that she lives in a private home alone and is (I) with all ADL/IADL routines. She is post shoulder replacement and seeing Karlos Dunn DPT as her Physical Therapist. She reports that besides her shoulders she does feel that she has reached her baseline level of function. She has ideal social support from family and friends. Equipment owned/DME: None SUBJECTIVE: Pt states that she feels great today and so much better. She notes that all of her residual symptoms have resided. OBJECTIVE: General Observation: Plesant, IV (R) UE, telemetry Mental Status: A&Ox4 Pain: no c/o pain except for the (R) shoulder with some ROM ROM: *Pt is 3 weeks post shoulder replacement and is limited in ROM d/t this. This does not affect her with her functional activities as she has made modifications prior. Her wrists, elbows, hands and digits (B) all WFL. STRENGTH: RUE mechanical maintenance 5/5 LUE mechanical maintenance 5/5 FUNCTIONAL MOBILITY/ADLS: Transfers Supine-sit (I) Sit-supine (I) Sit-Stand (I) Stand-sit (I) Bed-Chair (I) Chair-bed (I) BATHING (I) in the seated and standing position. DRESSING Dressing UE (I) don and doffing [facility] gown Dressing LE- (I) don and doffing (B) socks EATING (I) seated position without limitations. BALANCE: Static sitting Normal Dynamic Sitting Normal Static Standing Normal Dynamic Standing Normal SPECIAL TESTS: Daily Activity Limitations Standardized Measure [facility] AM -PAC ?6 clicks? Daily Activity Inpatient Short Form: Raw score: 24 Standardized score: 57.54 CMS score: 0.00% INFORMED CONSENT/EDUCATION: Pt instructed in purpose of OT Consult and plan of care. ASSESSMENT: Patient is a 82-year-old female referred to occupational therapy services with diagnosis of (R) sided CVA, polyneuropathy, actinic keratosis. Patient presents with clinical signs and symptoms consistent with dx. Pt states that she is at her baseline level of function and has no limitations at this time. OT did perform assessment and is in agreement with this. OT recommends that pt return home. Patient is assessed as a Low 34451 complexity based on the following: History: see above Examination: see functional limitations as noted above Presentation: evolving Decision Making: [facility] score 24 GOALS N/A seen for OT consult only. PLAN OF CARE/TREATMENT PLAN: Seen for OT consult only. DISCHARGE RECOMMENDATIONS Home when medically cleared per MD. TREATMENT TIME/MINUTES/CODES 51214, 20 minutes [facility] [place], [place]
--- NOTE | 2023-08-27 10:27 | PT.INIE ---
PT Notes Visit Reasons: Cerebrovascular accident Physical Therapy Inpatient Initial Evaluation Date: 08/27/2023 Referring Doctor: Albert Bailey MD PT Orders: PT CONSULT: Eval/treat Precautions: Fall. Standard. Activity as tolerated. Patient Profile/Admitting Diagnosis: Pam is an 82-year-old female who presented to the ED on 08/26/2023 due to left-sided weakness. Patient is admitted for observation for suspected CVA. Brain MRI with MRA with the following impression: 1. Normal MRA examination of the [place] of Ng. 2. Findings were discussed with Dr. Ordonez at 4:30 p.m. on 08/26/2023. PMHX: All Active Problems (Updated 08/26/23 @ 16:51 by Familia Ordonez DO) Right-sided cerebrovascular accident (CVA) (Acute) Reaction to insect bite (Acute) Polyneuropathy (Acute) Arthritis of right glenohumeral joint (Acute) Bilateral hearing loss due to cerumen impaction (Acute) Actinic keratosis (Chronic) Coronary artery spasm (Chronic 04/01/16) Essential hypertension (Chronic 07/07/13) Hip pain, left (Chronic 09/27/14) Lumbar facet arthropathy (Chronic 10/02/14) Sensorineural hearing loss, bilateral (Chronic 06/05/15) Tongue lesion (Chronic 09/03/17) Vaginal atrophy (Chronic 08/01/14) Diverticulosis large intestine w/o perforation or abscess w/o bleeding (Chronic) Colorectal polyp detected on colonoscopy (Chronic) 07/12/18 TUBULAR ADENOMA; DR. TREADWELL Pain of right great toe (Chronic 08/18/16) Lipoma (Chronic 08/20/09) Anxiety (Chronic 08/20/09) Wheezing (Acute) Reactive airway disease (Acute) Shortness of breath (Acute) Neck pain (Acute) Arthralgia (Acute) Polymyalgia rheumatica (Acute) Vitamin D intoxication (Acute) Arthritis of left shoulder region (Acute) s/p left reverse total shoulder arthroplasty 03/13/23 Arthritis of right shoulder region (Acute) Loose body in shoulder joint (Acute) Community acquired pneumonia (Acute) Cervical myelopathy (Acute) Pre-op chest exam (Acute) Medical History Takotsubo cardiomyopathy 2016-stressed induced lost 3 family members close together, states has been in very good health since Impacted cerumen of both ears Shingles Diabetes mellitus Elbow joint pain (01/25/13) Elevation of level of transaminase and lactic acid dehydrogenase (LDH) (06/27/94) Tailor's bunion Low back pain unspecified laterality, with sciatica presence unspecified.NSTEMI (non-ST elevated myocardial infarction) 03/24/16; [facility] [place]. Per pt. states she did not have an AK, stress-induced takotsubo cardiomyopathy Diabetes mellitus Tailors bunion bilateral Shoulder pain, left Elev transaminase/LDH 06/27/94 Elevated LFT's; HEP C neg; ANTB. B POS (had immunization); Ferritin 223; NL transferrin index U/S: prominenet L liver Lobe, ? Fatty infiltration; MRI neg; Dr. Carranza@ [facility] [place] Anxiety 08/20/09 hyperventilation Lipoma 08/20/09 LLE H/O retained foreign body fully removed 09/28/11 removal of foreign body-left thumb Elbow joint pain 01/25/13 Cerumen impaction 04/09/15 Tendonitis involving right hip abductors 02/15/16 Pain of right great toe 08/18/16 Abnormal glucose (08/28/15) Surgical History Status post appendectomy Status post tonsillectomy and adenoidectomy History of excision of lesion nevus;foot S/P tonsillectomy and adenoidectomy S/P appendectomy Tonsillectomy and adenoidectomy (~1950) THUMB SURGERY (02/16/12) REMOVAL OF F/B LEFT THUMBNEVUS REMOVAL FOOT Dilation and curettage Appendectomy (~1951) Social History/Home Situation: Lives alone in a private home. 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 Has good family and friend support. Equipment Owned/DME: None Subjective: Feels that she is at baseline. Strength in B UE/LE now the same unlike yesterday. Denies headache, chest pain, and lightheadedness throughout session. Objective: General Observation: Seated at edge of bed. No lines. Mental Status: Alert and oriented as to person, place, time, and purpose. Able to pay attention, focus, and respond appropriately. Pain: Denies Vital Signs: WNL as closely monitored by nursing staff ROM: Right Upper Extremity: Shoulder Flexion WFL. Shoulder abduction WFL. Elbow flexion WFL. Wrist flexion WFL. Functional opening and closing of hand WFL. Left Upper Extremity: Shoulder Flexion WFL. Shoulder abduction WFL. Elbow flexion WFL. Wrist flexion WFL. Functional opening and closing of hand WFL. Right Lower Extremity: Hip flexion WFL. Hip abduction WFL. Knee flexion WFL. Ankle dorsiflexion to neutral only. Ankle plantarflexion WFL. Left Lower Extremity: Hip flexion WFL. Hip abduction WFL. Knee flexion WFL. Ankle dorsiflexion to neutral only. Ankle plantarflexion WFL. Strength: Right Upper Extremity: Shoulder flexors 5/5. Shoulder abductors 5/5. Elbow flexors 5/5. Elbow extensors 5/5. Distance Education Faculty Liaison strong. Left Upper Extremity: Shoulder flexors 4/5. Shoulder abductors 4/5. Elbow flexors 5/5. Elbow extensors 4/5. Distance Education Faculty Liaison strong. Right Lower Extremity: Hip flexors 4/5. Hip abductors 4/5. Knee flexors 4/5. Knee extensors 4/5. Ankle dorsiflexors 3-/5. Ankle plantarflexors 4/5. Left Lower Extremity: Hip flexors 4-/5. Hip abductors 4-/5. Knee flexors 4-/5. Knee extensors 4-/5. Ankle dorsiflexors 3-/5. Ankle plantarflexors 4-/5. Bed Mobility/Transfers: Rolling independent Supine to sit independent Sit to supine independent Sit to stand independent Stand to sit independent Reclining chair to bed independent Gait: 300 feet without an assitive device requiring only supervision. Mild decrease in speed noted but no path deviation. Reciprocal gait pattern with mild decrease appreciated in the L step height. Fatigued at end of activity but no shortness of breath. Stairs: Up and down 6 x 4-inch steps and 4 x 6-inch steps while holding onto B rails with step over step pattern with supervision assist only. Balance: Static Sitting: Normal Dynamic Sitting: Normal Static Standing: Normal Dynamic Standing: Good Special Tests: Mobility Limitations Standardized Measure [facility] 6 clicks Basic Mobility Inpatient Short Form: Raw Score: 24 CMS Score: 0% deficit Romberg Test: Negligible sway to R noted but no LOB 4-stage Balance Test: 10 seconds with feet together and semi-tandem but unable to complete full tandem and one-legged stance Informed Consent/Education: Patient was instructed in purpose of PT consult and plan of care. Agreeable to proceed with established PT POC to achieve personal goals. Assessment: Patient will benefit with outpatient PT services to address mild balance and strength impairments resulting from recent TIA. Patient presents with clinical signs and symptoms consistent with current/admitting diagnoses that have resulted to mobility limitations, gait instability, generalized weakness, and overall ADL decline as demonstrated by the following impairment level findings: 1. Decreased strength to L UE/LE major muscle groups 2. Impaired standing balance 3. Swelling in B legs (mild) R more affected than L Impairments are contributing to the following functional limitations: 1. Increased completion time for mobility ADL performance 2. Increased risk for falls Patient is assessed as a 13802 low complexity based on the following: History: 82-year-old female with past medical history as indicated above Examination: Demonstrable impairment in strength, balance, and mobility level with underlying impairments and functional limitations as exhibited above as well as deficit score of % utilizing the [facility] Mobility Inpatient Short Form Presentation: Stable Decision Makin low complexity Goals: 1. Patient will demonstrate 100% mastery of HEP in order to facilitate motor recovery while awaiting outpatient PT evalaution schedule. Plan of Care/Treatment Plan: 1-2x/day, 7 days/week x 1 week. Patient will be seen for one more session for HEP instruction, DISCHARGE RECOMMENDATIONS: [] Home with no services [] [] Home with services [specify] [X] Home with outpatient P.T. for neuromuscular re-education, balance retraining, and balance retraining. [] SNF for continued rehabilitation [] [] Intermediate Care [] [] SNF versus LTC based on ability to participate and progress [] TREATMENT CODE/TIME: 55596 x 18 minutes for 1 unit beginning at 10:27 AM. Thank you for the opportunity to participate in the care of this patient. Nae Townsend PT, DPT, CLT [facility] [place], [place]
--- NOTE | 2023-08-27 10:45 | DI.US_ITS ---
Exam(s) US CAROTID EXAM: US CAROTID CLINICAL HISTORY: CVA. TECHNIQUE: Ultrasound carotids performed using grayscale, color-flow, and spectral Doppler imaging. COMPARISON: No exams were available for comparison FINDINGS: RIGHT CAROTID ARTERY: Plaque: No plaque is identified. Velocity elevation: None. LEFT CAROTID ARTERY: Plaque: Mild calcific plaque in the left carotid bulb. Velocity elevation: None. VERTEBRAL ARTERIES: Antegrade flow. Measurements: R Bulb: 61.1cm/s PS / 19.6cm/s ED R CCA: 62.2cm/s PS / 23.9cm/s ED R ECA: 84.4cm/s PS / 19.5cm/s ED R ICA Prox: 73.8cm/s PS / 22.9cm/s ED R ICA Mid: 95.6cm/s PS / 37.4cm/s ED R ICA Distal: 98.4cm/s PS /34.5cm/s ED R Vert: 41.5cm/s PS / 13.3cm/s ED R SVR: 1.6 R DVR: 1.4 L Bulb: 58.2cm/s PS / 18cm/s ED L CCA: PS / 24.5cm/s ED L ECA: 118.5cm/s PS / 21.7cm/s ED L ICA Prox: 95.4cm/s PS / 13.4cm/s ED L ICA Mid: 73.6cm/s PS / 29.1cm/s ED L ICA Distal: 102cm/s PS / 34.5cm/s ED L Vert: 29.4cm/s PS / 0cm/s ED L SVR: 1.2 L DVR: 1.4 IMPRESSION: No evidence for hemodynamically significant carotid stenosis. Criteria for Carotid Stenosis: Normal: ICA PSV <125 cm/s no plaque or intimal thickening is visible. <50% stenosis: ICA PSV <125 cm/s and plaque or intimal thickening is visible. 50-69% stenosis: ICA PSV is 125-250 cm/s and plaque is visible. >70% stenosis to near occlusion: ICA PSV >250 cm/s with visible plaque and luminal narrowing. DATA REPOSITORY:
--- NOTE | 2023-08-27 13:26 | PT.INTREAT ---
PT Notes Visit Reasons: Cerebrovascular accident Inpatient Physical Therapy Treatment Note [facility] Date: [] PRECAUTIONS:[] SUBJECTIVE: [] OBJECTIVE: []? PAIN: [] VITALS: ? Pre-Treatment: [] ? Post-Treatment: []? Therapeutic Activities (37607o[]): Direct one-on-one instruction in dynamic activities to improve functional performance. ? BED MOBILITY/TRANSFERS? Rolling L/R: [] Supine-sit: []? Sit-supine: [] ? Sit-stand: []? Stand-sit: [] ? Bed-Chair: [] ? Chair-bed: [] Provided skilled cues and instruction on performance and technique throughout. Gait Training ([id number][]): Direct one-on-one instruction and skilled instruction in: [] employing an assistive device [] modified weight-bearing status [] movement sequencing [] turning and movement with proper form [] Provided verbal cues for equipment management and technique [] Provided instruction in gait pattern [] Patient education regarding pacing and breathing techniques to maximize activity tolerance? GAIT? Assistive Device: []? Weight bearing: [] Assist: [] ? Distance:? [] ? Deviation: [] ? STAIRS:[] ? Therapeutic Exercises (56342v[]): Direct one-on-one instruction in therapeutic exercises to develop strength, endurance, range of motion and flexibility. ? Exercises: Hep created and reviewed with patient as follows: Access Code: [email or web address] URL: [email or web address] Date: 08/27/2023 Prepared by: Annalise Izquierdo Exercises - Sit to Stand with Armchair - 1 x daily - 7 x weekly - 3 sets - 10 reps - Standing Hip Abduction with Counter Support - 1 x daily - 7 x weekly - 3 sets - 10 reps - Supine Bridge - 1 x daily - 7 x weekly - 3 sets - 10 reps - Heel Raises with Counter Support - 1 x daily - 7 x weekly - 3 sets - 10 reps - Toe Raise With Back Against Wall - 1 x daily - 7 x weekly - 3 sets - 10 reps - Tricep Push Up on Wall - 1 x daily - 7 x weekly - 3 sets - 10 reps Ambulation ? Assistive Device: []? Weight bearing: [] Assist: [] ? Distance:? [] ? Deviation: [] ? Provided skilled instruction in proper exercise performance Provided skilled manual cues to facilitate proper muscle recruitment and/or form: [] Neuromuscular Re-education (69068i[]): Activities that facilitate re-education of movement balance, posture, coordination, and proprioception or kinesthetic sense, requiring skilled tactile and verbal cues ? Exercises/techniques: ? [] ASSESSMENT:? [] PLAN: [] TREATMENT CODE/TIME: []
--- NOTE | 2023-08-27 13:53 | PT.INNT ---
Date of service: 08/27/23 Time of Service: 13:37 PT Notes Visit Reasons: Cerebrovascular accident Created HEP as follows: Access Code: [email or web address] URL: [email or web address] Date: 08/27/2023 Prepared by: Annalise Izquierdo Exercises - Sit to Stand with Armchair - 1 x daily - 7 x weekly - 3 sets - 10 reps - Standing Hip Abduction with Counter Support - 1 x daily - 7 x weekly - 3 sets - 10 reps - Supine Bridge - 1 x daily - 7 x weekly - 3 sets - 10 reps - Heel Raises with Counter Support - 1 x daily - 7 x weekly - 3 sets - 10 reps - Toe Raise With Back Against Wall - 1 x daily - 7 x weekly - 3 sets - 10 reps - Tricep Push Up on Wall - 1 x daily - 7 x weekly - 3 sets - 10 reps - HOLD UNTIL CLEARED BY PT AND SHOULDER SURGEON Reviewed with patient who expresses understanding, then states that she would like a nap before going home, thereby ending PT session.
[2023-08-27 15:33] VITALS: BP 135/84; PULSE 91; RESP 18; TEMP 36.9; O2SAT 95
--- NOTE | 2023-08-27 15:56 | DSE_ITS ---
Date of service: 08/27/23 Time of Service: 10:00 DS: Diagnosis Discharge Diagnosis (1) Embolic stroke: Status: Acute Asessment and Plan: - Patient presented with left upper and lower extremity weakness -This was subsequently confirmed to be a CVA as seen on the brain MRI -Brain MRI MRI and neck negative -Noncon head CT also negative -Patient was given 325 mg aspirin in the emergency department [place] [place] and recommended initiation of Plavix which will be continued daily -Follow-up cholesterol, TSH, hemoglobin A1c -Appreciate PT OT consultation -Follow-up and echocardiogram with bubble study was within normal limits -Follow-up carotid artery ultrasound was within normal limits (2) Essential hypertension: Status: Chronic Asessment and Plan: - Continue losartan (3) Non-ST elevation (NSTEMI) myocardial infarction: Status: Resolved Discharge Plan Disposition Patient Disposition: Home Condition: Good Discharge Details Reason For Visit: CVA Admit Date/Time: 08/26/23 16:49 Admit Provider: Albert Bailey Attending Provider: Albert Bailey Primary Care Provider: Jennifer Savage Hospital Course Hospital Course: Patient initially presented with left-sided weakness that was ultimately determined to be due to right-sided CVA. However, during hospitalization her symptoms significantly improved and her left side return to baseline strength. Echocardiogram was without acute findings, as well as initial noncontrast head CT, and MRA of brain and neck. Carotid ultrasound was done and is currently pending, but was only ordered to confirm negative findings on MRI of the neck in the presence of mild motion artifact. Patient was discharged on aspirin and Plavix while close follow-up with her PCP. Home Meds and New Rx's Prescriptions: New aspirin 81 mg Tablet,Delayed Release (Dr/Ec) 81 mg PO DAILY Qty: 60 0RF clopidogrel [Plavix] 75 mg tablet 75 mg PO DAILY Qty: 60 0RF Continued turmeric 400 mg capsule 400 mg PO DAILY Lumigan 0.01 % drops 1 drp ophthalmic (eye) DAILY losartan 100 mg tablet 100 mg PO DAILY Qty: 90 4RF loratadine 10 mg tablet 5 mg PO DAILY PRN (Reason: allergy symptoms) cholecalciferol (vitamin D3) 1,000 UNIT capsule 2 cap PO DAILY omega-3 fatty acids-fish oil 1 EACH capsule 1 cap PO DAILY Probiotic 1 EACH capsule 1 ea PO DAILY nitroglycerin 0.4 mg tablet, sublingual 0.4 mg Sublingual Q5 HR PRN Qty: 25 0RF Rx Instructions: TAKE EVERY 5 MIN PRN FOR CHEST PAIN epinephrine [EpiPen 2-Jesus] 0.3 mg/0.3 mL auto-injector 0.3 mg IJ DIRECTED PRN (Reason: anaphylaxis) Qty: 1 0RF Discontinued multivitamin [Daily Vitamin] 1 EACH tablet 1 tab PO DAILY No Action amlodipine 5 mg tablet 5 mg PO DAILY Qty: 90 6RF atorvastatin 10 mg tablet 10 mg PO DAILY Qty: 90 3RF Discharge Instructions Instructions: Ischemic Stroke (DC) Stand Alone Forms: Nursing Discharge Form Referrals: P.T.,CHOICE [OTHER] - (Left sided weakness from right sided CVA. Please call tomorrow to make an appointment.) Jennifer Savage MD, [place] [Primary Care Provider] - (Please call tomorrow to make a follow up appointment for 1-2 weeks.) Activity:: Activity as Tolerated Equipment/Supplies:: No Equipment Needed Diet:: As Tolerated Discharge Orders Discharge Orders: Discharge Order (Routine); Ordered 08/27/23 Ordered By: Albert Bailey Discharge Data Discharge Date/Time-TO BE ENTERED AT DEPARTURE: 08/27/23 16:49 DS: Summary Time Spent with Patient providing and/or coordinating discharge services: Greater than 30 minutes Status at Discharge Functional status at discharge: independent ambulation Overall status at discharge: patient is back to baseline Mental Status: mental status grossly normal Speech and Movement: speech and movement normal Mood: congruent mood Affect: normal affect Exam Narrative Exam Narrative: Well-appearing older female sitting up on the edge of the bed in no acute distress, ANO x4, heart regular rate rhythm, lungs clear to auscultation bilaterally, abdomen soft, nontender nondistended, cranial nerves II through XII intact, normal sensation and strength in bilateral upper and lower extremities Psych Mental Status: mental status grossly normal Speech and Movement: speech and movement normal Mood: congruent mood Affect: normal affect DS: Data Vitals/I&O Vitals and I&O: Vital Signs Temperature 98.4 F 08/27/23 15:33 Temperature Source Tympanic 08/27/23 15:33 Pulse 91 H 08/27/23 15:33 Pulse Rhythm Regular 08/27/23 15:44 Pulse 87 08/26/23 18:20 Respiratory Rate 18 08/27/23 15:33 Respiratory Effort Normal 08/27/23 15:44 Respiratory Depth Normal 08/27/23 15:44 Respiratory Pattern Normal 08/27/23 15:44 Blood Pressure 135/84 08/27/23 15:33 Blood Pressure Mean 125 08/26/23 16:21 Pulse Oximetry 95 08/27/23 15:33 Oxygen Delivery Method Room Air 08/27/23 15:33 Oxygen Flow Rate 0 08/27/23 15:33 Pain Level 0 08/27/23 15:33 Comment pt states she is hypertensive at baseline 08/27/23 05:06 Intake & Output 08/26/23 08/27/23 08/27/23 17:59 05:59 17:59 Intake Total 360 / 360 Balance 360 / 360 Weight 165 lb 12.203 oz Intake: Oral 360 / 360 Other: Urine Color Pale Urine Appearance Clear Urine Odor None Comment pt independently voided, pt denies any discomfort or GI/ issues Voiding Methods Toilet Data Completed and Pending Labs on day of discharge: Labs from last 24 hours 08/27/23 08/26/23 05:59 12:22 WBC 6.02 RBC 4.18 Hgb 12.7 Hct 37.7 MCV 90 MCH 30.4 MCHC 33.7 RDW 14.0 Plt Count 228 MPV 9.8 Sodium 142 Potassium 3.7 Chloride 107 Carbon Dioxide 23.4 Anion Gap 11.6 H BUN 25 H Creatinine 0.8 Est GFR (CKD-EPI 2020) 74.44 Glucose 205 H Hemoglobin A1c 5.8 H Calcium 9.0 Magnesium 1.7 L Triglycerides 145 Total Cholesterol 146 LDL Cholesterol, Calc 53 HDL Cholesterol 64 TSH 0.48 PFSH All Active Problems Patent foramen ovale (Acute) Left hemiparesis (Acute) Embolic stroke (Acute) Reaction to insect bite (Acute) Polyneuropathy (Acute) Arthritis of right glenohumeral joint (Acute) Bilateral hearing loss due to cerumen impaction (Acute) Actinic keratosis (Chronic) Coronary artery spasm (Chronic 04/01/16) Essential hypertension (Chronic 07/07/13) Hip pain, left (Chronic 09/27/14) Lumbar facet arthropathy (Chronic 10/02/14) Sensorineural hearing loss, bilateral (Chronic 06/05/15) Tongue lesion (Chronic 09/03/17) Vaginal atrophy (Chronic 08/01/14) Diverticulosis large intestine w/o perforation or abscess w/o bleeding (Chronic) Colorectal polyp detected on colonoscopy (Chronic) 07/12/18 TUBULAR ADENOMA; DR. 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 NSTEMI (non-ST elevated myocardial infarction) [place]24[place]16[place] [facility] [place]. states she did not have an [place], stress-induced takotsubo cardiomyopathy Diabetes mellitus Tailors bunion bilateral Shoulder pain, left Elev transaminase/LDH 06/27/94 Elevated LFT's; HEP C neg; ANTB. B POS (had immunization); Ferritin 223; NL transferrin index U/S: prominenet L liver Lobe, ? Fatty infiltration; MRI neg; [place]. Carrazna@ [facility] [place] [facility] Anxiety 08/20/09 hyperventilation Lipoma 08/20/09 LLE H/O retained foreign body fully removed 09/28/11 removal of foreign body-left thumb Elbow joint pain 01/25/13 Cerumen impaction 04/09/15 Tendonitis involving right hip abductors 02/15/16 Pain of right great toe 08/18/16 Abnormal glucose (08/28/15) Surgical History Status post appendectomy Status post tonsillectomy and adenoidectomy History of excision of lesion nevus;foot S/P tonsillectomy and adenoidectomy S/P appendectomy Tonsillectomy and adenoidectomy (~1950) THUMB SURGERY (02/16/12) REMOVAL OF F/B LEFT THUMB NEVUS REMOVAL FOOT Dilation and curettage Appendectomy (~195) Family History Mother , AGE 71 Essential hypertension Asthma Lung fibrosis Lung cancer Father , AGE 72 Essential hypertension Heart disease [place] Myocardial infarction Sister Diabetes Depression Hyperlipidemia Asthma Heart disease Brother , age 55 Alcohol abuse Heart disease Stomach cancer Brother , Pneumonia/embolism age 59 Myocardial infarction Cancer Maternal Grandfather , age 75 Essential hypertension Heart disease Stroke Paternal Grandfather , age 65 Diabetes Heart disease Cancer Maternal Grandmother , age 59 Heart disease Paternal Grandmother , age 58 Cancer Diabetes Son No problems noted. Daughter No problems noted. Daughter Alcohol abuse Social History Smoking/Tobacco Use Status: Former Tobacco Use tobacco type: cigarettes Quit Date: 09/28/1967 Tobacco: How many years used: 5 Second Hand Exposure: Yes Smoking risk assessment performed?: Yes Alcohol Intake: current Alcohol Intake frequency: holidays/special occasions only Alcohol type: wine Drug use: Rarely Substance use type: marijuana Caregiver/Support person: No Household members: none Housing: house Communication Needs: None Do you need help understanding health information?: Never Pets and animals: No Sexually active: No Do you think of yourself as: straight/heterosexual Current gender identity: female What is your relationship status?: How often do you talk on the phone with friends or family?: twice per week How often do you get together with friends or relatives?: three or more times per week How often do you attend religion or lutheran services?: 4 or more times per year Do you belong to any clubs or organized social groups?: yes Panel score (0-1 are the most socially isolated patients): 3 What type of physical activity do you participate in: walking, aerobic and other Details: Ti Chi Duration: 30-45 minutes/day Frequency: daily Erika/Buddhism: Druze Special erika needs: No Seatbelt use: always Helmet use: Yes Helmet use: always Drive intox or ride w/intox tank wagon driver: No Do you feel safe at home: Yes Do you feel safe in your relationship?: Yes Time Spent with Patient Time Spent with Patient: <45 minutes Time was spent: preparing to see the patient(eg.review tests), obtaining and/or reviewing separately otained hiistory, ordering medications,tests, procedures, referring, communicating with other health care program director, indepentently interpreting results, counseling the patient and care coordination
--- NOTE | 2023-08-27 17:04 | CHAPLAIN ---
I had a brief visit with Pam this morning. She said she would likely be discharged later today, and she was. Pam is a member of [employer], and she talked about the meaningful experience that has been for her.
== END 2023-08-27 16:49 | disposition home or self-care (01) | DRG 65 ==
LOC: ER 16:51 → MS 18:41
PROVIDERS: Admitting Provider Family Medicine; Emergency Provider Student in an Organized Health Care Education/Training Program; PCP Family Medicine; Visit Provider Family Medicine
DX: I63.89 Other cerebral infarction (principal); G81.94 Hemiplegia, unspecified affecting left nondominant side; I20.1 Angina pectoris with documented spasm; G95.89 Other specified diseases of spinal cord; M35.3 Polymyalgia rheumatica; J45.909 Unspecified asthma, uncomplicated; I10 Essential (primary) hypertension; M19.011 Primary osteoarthritis, right shoulder; H90.3 Sensorineural hearing loss, bilateral; M25.552 Pain in left hip; G89.29 Other chronic pain; K57.30 Diverticulosis of large intestine without perforation or abscess without bleeding; Z86.010 Personal history of colon polyps; F41.9 Anxiety disorder, unspecified; Z96.612 Presence of left artificial shoulder joint; E11.42 Type 2 diabetes mellitus with diabetic polyneuropathy; Z87.891 Personal history of nicotine dependence; I25.2 Old myocardial infarction
CPT/HCPCS: 00123; 36415; 70544; 70547; 80048; 80053; 80061; 85027; 93005; 96374; 96375; 97161; 99291; 70450; 70551; 83036; 83735; 84443; 84484; 85025; 93010; 93306; 93880; 99223; J2930

== ENCOUNTER → 2023-09-02 14:37 | Outpatient (BNVA) | payer MEDICARE, SELFPAY | PROVIDERS: PCP Family Medicine; Referring Provider Family Medicine; Visit Provider Psychiatry & Neurology Neurology | DX: Z09 Encounter for follow-up examination after completed treatment for conditions other than malignant neoplasm (principal); Z86.73 Personal history of transient ischemic attack (TIA), and cerebral infarction without residual deficits; R60.0 Localized edema; Q21.12 Patent foramen ovale | CPT/HCPCS: 99215; G2212 ==

== ENCOUNTER → 2023-09-08 01:25 | Outpatient (CLI) | payer MEDICARE, SELFPAY ==
--- NOTE | 2023-09-08 08:00 | DI.US_ITS ---
Exam(s) US UPPER EXTREMITY VENOUS LT EXAM: US UPPER EXTREMITY VENOUS LT CLINICAL HISTORY: s/p surgery, stroke PFO,SWELLING,R60.9. TECHNIQUE: Ultrasound examination of the left upper extremity venous system(s) is performed using gr ayscale, color-flow, and spectral Doppler analysis. COMPARISON: No exams were available for comparison FINDINGS: Left Deep Veins:The visualized internal jugular and subclavian veins are patent. The axillary and br achial veins are patent and display normal color flow, augmentation and compressibility. Superficial Veins:The visualized cephalic and basilic veins are patent and display normal color flow, augmentation and compressibility. Soft tissues: Unremarkable. IMPRESSION: No evidence of a left upper extremity deep venous thrombosis. DATA REPOSITORY:
--- NOTE | 2023-09-08 08:00 | DI.US_ITS ---
Exam(s) US EXTREMITY VENOUS BI EXAM: US EXTREMITY VENOUS BI CLINICAL HISTORY: stroke with PFO and recent surgery,SWELLING,?DVT,R60.9. TECHNIQUE: Bilateral lower extremity venous ultrasound performed using grayscale, color-flow, and sp ectral Doppler analysis. COMPARISON: No exams were available for comparison FINDINGS: The right common femoral, femoral and popliteal veins demonstrate normal compressibility, augmentatio n, and color Doppler. The posterior tibial and peroneal veins are patent. The saphenofemoral junctio n is unremarkable. There is no evidence of a Jaimes's cyst. The soft tissues are unremarkable. The left common femoral, femoral and popliteal veins demonstrate normal compressibility, augmentation , and color Doppler. The posterior tibial and peroneal veins are patent. The saphenofemoral junction is unremarkable. There is no evidence of a Jaimes's cyst. The soft tissues are unremarkable. IMPRESSION: 1. No evidence of a right lower extremity DVT. 2. No evidence of a left lower extremity DVT. DATA REPOSITORY:
--- NOTE | 2023-09-08 08:00 | DI.US_ITS ---
Exam(s) US UPPER EXTREMITY VENOUS RT EXAM: US UPPER EXTREMITY VENOUS RT CLINICAL HISTORY: s/p surgery, stroke, PFO,SWELLING, R60.9. TECHNIQUE: Ultrasound examination of the right upper extremity venous system(s) is performed using g rayscale, color-flow, and spectral Doppler analysis. COMPARISON: No exams were available for comparison FINDINGS: Right Deep Veins:The visualized internal jugular and subclavian veins are patent. The axillary and b rachial veins are patent and display normal color flow, augmentation and compressibility. Superficial Veins:The visualized cephalic, median cubital and basilic veins are patent and display no rmal color flow, augmentation and compressibility. Soft tissues: Unremarkable. IMPRESSION: No evidence of a right upper extremity deep venous thrombosis. DATA REPOSITORY:
== END ==
PROVIDERS: PCP Family Medicine; Visit Provider Psychiatry & Neurology Neurology
DX: R60.9 Edema, unspecified (principal); G81.94 Hemiplegia, unspecified affecting left nondominant side; I63.9 Cerebral infarction, unspecified; Q21.12 Patent foramen ovale
CPT/HCPCS: 93970; 93971

== ENCOUNTER 2023-10-07 14:17 | Outpatient (CLI) | payer MEDICARE, SELFPAY ==
--- NOTE | 2023-10-07 13:00 | DI.RAD_ITS ---
Exam(s) XR SHOULDER RT COMPLETE 2+V EXAM: XR SHOULDER RT COMPLETE 2+V CLINICAL HISTORY: F/U RIGHT RTSA. TECHNIQUE: 2D digital imaging was performed. Two images were obtained. Grashey and Y views were obt ained. COMPARISON: CR XR SHOULDER RT COMPLETE 2+V from 08/12/2023 FINDINGS: BONES: There are stable post operative changes of a right total reverse shoulder replacement present. No fracture or dislocation. JOINTS: The orthopedic hardware is in good position. No evidence of hardware loosening. SOFT TISSUE: The visualized lung harris are clear. IMPRESSION: Stable postoperative changes. DATA REPOSITORY: RADIATION DOSE DELIVERED:
== END 2023-10-07 14:18 | disposition home or self-care (01) ==
LOC: DIORS 14:17
PROVIDERS: PCP Family Medicine; Visit Provider Student in an Organized Health Care Education/Training Program
DX: M19.011 Primary osteoarthritis, right shoulder (principal)
CPT/HCPCS: 73030

== ENCOUNTER 2023-10-15 11:45 | Outpatient (CLI) | payer MEDICARE, SELFPAY ==
--- NOTE | 2023-10-15 14:44 | W.CARDEVENT ---
Date of service: 10/15/23 Time of Service: 14:44 Cardiac Event Recorder Referring Provider:: Miguelangel Falk Indications:: Cerebral infarction, unspecified Cardiac Event Note: This was a 30-day event recorder 1. The underlying rhythm is sinus, rate range 60 to 126 bpm, average 88 bpm. 2. Rare PACs, no PVCs, no SVT. 3. No atrial fibrillation 4. No pathologic pauses noted.
== END 2023-10-15 11:46 | disposition home or self-care (01) ==
LOC: CARDOPNVT 11:45
PROVIDERS: PCP Family Medicine; Visit Provider Internal Medicine Interventional Cardiology
DX: I63.9 Cerebral infarction, unspecified (principal)
CPT/HCPCS: 93272

== ENCOUNTER → 2023-10-26 13:56 | Outpatient (BNVA) | payer MEDICARE, SELFPAY | PROVIDERS: PCP Family Medicine; Referring Provider Family Medicine; Visit Provider Psychiatry & Neurology Neurology | DX: I63.9 Cerebral infarction, unspecified (principal); G81.94 Hemiplegia, unspecified affecting left nondominant side; Q21.12 Patent foramen ovale | CPT/HCPCS: 99215 ==

== ENCOUNTER 2024-03-16 15:13 | Outpatient (CLI) | payer MEDICARE, SELFPAY ==
--- NOTE | 2024-03-16 13:00 | DI.RAD_ITS ---
Exam(s) XR SHOULDER LT COMPLETE 2+V EXAM: XR SHOULDER LT COMPLETE 2+V CLINICAL HISTORY: F/U LEFT RTSA. TECHNIQUE: 2D digital imaging was performed. Three views. COMPARISON: CR XR SHOULDER LT COMPLETE 2+V from 05/19/2023 CR XR SHOULDER RT COMPLETE 2+V from 10/07/2023 FINDINGS: BONES: No acute fracture is present. No bony destructive lesion is seen. JOINTS: No dislocation present. There has been no change in the alignment of the left shoulder prost hesis. SOFT TISSUE: Normal. IMPRESSION: Stable postoperative appearance. DATA REPOSITORY: RADIATION DOSE DELIVERED:
--- NOTE | 2024-03-16 13:00 | DI.RAD_ITS ---
Exam(s) XR SHOULDER RT COMPLETE 2+V EXAM: XR SHOULDER RT COMPLETE 2+V CLINICAL HISTORY: F/U RIGHT RTSA. TECHNIQUE: 2D digital imaging was performed. Five views. COMPARISON: CR XR SHOULDER RT COMPLETE 2+V from 10/07/2023 CR XR SHOULDER LT COMPLETE 2+V from 03/16/2024 FINDINGS: BONES: No acute fracture is present. No bony destructive lesion is seen. JOINTS: No dislocation present. No change in alignment of the shoulder prosthesis. SOFT TISSUE: Calcifications again noted in subcoracoid region. IMPRESSION: Stable postoperative appearance. DATA REPOSITORY: RADIATION DOSE DELIVERED:
== END 2024-03-16 15:14 | disposition home or self-care (01) ==
LOC: DIORS 15:14
PROVIDERS: PCP Family Medicine; Referring Provider Family Medicine; Visit Provider Student in an Organized Health Care Education/Training Program
DX: Z47.1 Aftercare following joint replacement surgery (principal); Z96.611 Presence of right artificial shoulder joint; Z96.612 Presence of left artificial shoulder joint
CPT/HCPCS: 99213; 73030

== ENCOUNTER 2024-08-01 03:15 | Outpatient (CLI) | payer MEDICARE, SELFPAY ==
[2024-08-01 12:41] LABS: ALT 25 U/L (14-59); AST 19 U/L (15-37); Alkaline Phosphatase 74 U/L (46-116); Anion Gap 9.1 mmol/L (3-11); BUN 19 mg/dL (7-18); CO2 28.9 mmol/L (21.0-32.0); CREATININE 0.9 mg/dL (0.55-1.02); Calcium 10.1 mg/dL (8.5-10.1); Calculated LDL 76 mg/dL (<100); Chloride 106 mmol/L (98-107); Cholesterol 171 mg/dL (<200); Estimated GFR 64.23 (mL/min/1.73m2); Glucose 92 mg/dL (74-106); HDL Cholesterol 80 mg/dL (40-60); Potassium 3.9 mmol/L (3.5-5.1); Sodium 144 mmol/L (136-145); TSH (W/Ref FT4) 1.68 uIU/mL (0.36-3.74); Total Protein 7.8 g/dL (6.4-8.2); Triglyceride 78 mg/dL (<150)
[2024-08-01 12:49] LABS: Hemoglobin A1C 5.8 % (<5.7)
[2024-08-01 13:33] LABS: Vitamin B12 538 pg/mL (193-986)
== END 2024-08-01 03:16 | disposition home or self-care (01) ==
LOC: LOS 03:15
PROVIDERS: PCP Family Medicine; Visit Provider Family Medicine
DX: E11.9 Type 2 diabetes mellitus without complications (principal); R41.3 Other amnesia; I10 Essential (primary) hypertension; E03.9 Hypothyroidism, unspecified; G62.9 Polyneuropathy, unspecified
CPT/HCPCS: 36415; 80053; 80061; 82607; 83036; 84443

== ENCOUNTER 2025-02-22 02:11 | Outpatient (CLI) | payer MEDICARE, SELFPAY ==
[2025-02-22 13:09] LABS: Hemoglobin A1C 5.9 % (<5.7)
[2025-02-22 13:23] LABS: ALT 26 U/L (14-59); AST 20 U/L (15-37); Albumin 3.9 g/dL (3.4-5.0); Alkaline Phosphatase 77 U/L (46-116); Anion Gap 7.9 mmol/L (3-11); BUN 20 mg/dL (7-18); Bilirubin, Total 0.7 mg/dL (0.2-1.0); CO2 29.1 mmol/L (21.0-32.0); CREATININE 0.6 mg/dL (0.55-1.02); Calcium 9.6 mg/dL (8.5-10.1); Calculated LDL 77 mg/dL (<100); Chloride 103 mmol/L (98-107); Cholesterol 169 mg/dL (<200); Estimated GFR 89.56 (mL/min/1.73m2); Glucose 96 mg/dL (74-106); HDL Cholesterol 69 mg/dL (>or=50); Potassium 3.9 mmol/L (3.5-5.1); Sodium 140 mmol/L (136-145); Total Protein 7.4 g/dL (6.4-8.2); Triglyceride 115 mg/dL (<150); Vitamin B12 515 pg/mL (193-986)
== END 2025-02-22 02:12 | disposition home or self-care (01) ==
PROVIDERS: PCP Family Medicine; Visit Provider Family Medicine
DX: I10 Essential (primary) hypertension (principal); R41.3 Other amnesia; E11.9 Type 2 diabetes mellitus without complications
CPT/HCPCS: 36415; 80053; 80061; 82607; 83036